=== PATIENT | female | born 1980 | race Caucasian/White ===

== ENCOUNTER → 2019-07-13 | Outpatient (CLI) | payer BC ==
--- NOTE | 2019-07-13 17:03 | Diagnostic Imaging Report ---
INDICATION: Right breast density. Patient presents for additional views. COMPARISON: Correlation is made with screening study from 06/22/2019. TECHNIQUE: Unilateral right 2-D and 3-D diagnostic mammography was performed. This included spot compression CC and ML views as well as conventional 90 degree lateral view. The current study was also evaluated with a Computer Aided Detection (CAD) system. 3-D tomosynthesis was also performed and reviewed. FINDINGS: Scattered fibroglandular densities in the right breast are noted. There are two nodular densities in the right breast. A nodule in the upper-outer aspect of the right breast, 9 cm from the nipple is noted. This is circumscribed. There is a nodule in the lower-outer aspect of the right breast, approximately 6 cm from the nipple. Both of these appear to be fairly benign. No spiculated mass or malignant-appearing microcalcifications are seen. The axillae are unremarkable. IMPRESSION: Right breast densities. Further evaluation with ultrasound is recommended and will be performed today. ACR BI-RADS Category 0: Incomplete. (Needs additional imaging evaluation). Result letter will be mailed to the patient. Note: At least 10% of breast cancer is not imaged by mammography. Dictated by: Dictated on workstation # [id number]
--- NOTE | 2019-07-13 17:17 | Diagnostic Imaging Report ---
INDICATION: Right breast densities. COMPARISON: Correlation is made with diagnostic mammogram earlier the same day and screening mammogram from 06/22/2019. FINDINGS: Sonographic interrogation of the upper-outer and upper-lower right breast was performed. At the 9:30 location of the right breast, there is a circumscribed hypoechoic nodule measuring 6 mm x 4 mm x 5 mm, likely accounting for the mammographic density. This has benign features and most likely represents a small cyst. Tiny cyst at the 10 o'clock location is seen as well near this area measuring approximately 4 mm x 2 mm. At the 8 o'clock location of the right breast, 6 cm from the nipple, there is a 7 mm x 3 mm x 3 mm cyst, correlating in size and location to the mammographic density. No solid or concerning masses are seen. IMPRESSION: Right breast cysts, accounting for the mammographic densities. Patient may return to routine annual screening mammography. ACR BI-RADS Category 2: Benign findings. Dictated by: Dictated on workstation # [id number]
== END ==
LOC: RAD 14:00
PROVIDERS: ATTEND Nurse Practitioner Family
DX: N60.01 Solitary cyst of right breast (principal)

== ENCOUNTER 2023-07-15 01:45 | Inpatient (IN) | payer BC ==
[~2023-07-15] VITALS: Ht 175.3 cm; Wt 127.6 kg
[2023-07-15] MEDS ORDERED: fentaNYL INJECTION 100 MCG/2 ML VIAL IVP STA (02:34)
--- NOTE | 2023-07-15 02:42 | ED Abdominal Pain ---
General Stated Complaint: ABD PAIN Source of Information: Patient, Spouse History of Present Illness Date Seen by Provider: Jul 15, 2023 Time Seen by Provider: 02:29 Initial Comments PT ARRIVES VIA POV IN TRANSFER FROM [facility] IN [place], [place] DR. CID HAD BEEN CONTACTED EARLIER BY ER PHYSICIAN AT [place], AND HE HAD ADVISED TO SEND PT HERE TO ER. THERE WAS NO GROUND EMS AVAILABLE, SO PT WAS SENT HERE BY POV PT HAS BEEN HAVING ABDOMINAL PAIN FOR THE LAST 2 DAYS NO NAUSEA/VOMITING. HAD BM AT 1400 ON 07/14/23 NO FEVER NO URINARY SYMPTOMS SHE WAS DX WITH DIVERTICULITIS WITH PERFORATION AND 4+ CM OF FREE AIR SHE RECEIVED ROCEPHIN AND TORADOL AT [facility] IV WAS DC'D PRIOR TO TRANSFER, PT WAS ARRIVING BY POV. LAST FOOD INTAKE WAS 1100 AM ON 07/14/23 LAST LIQUID INTAKE WAS 1900 ON 07/14/23 NO HISTORY OF SIMILAR NO PRIOR ABDOMINAL SURGERIES NO CHRONIC MEDICAL PROBLEMS, BUT NEVER GOES TO AND DOES NOT HAVE A PRIMARY CARE ANYWHERE. PT LIVES IN [place], [place] LMP--UNKNOWN, PT IS ON DEPO-PROVERA, LAST SHOT WAS 2 WEEKS AGO Allergies and Home Medications Allergies Coded Allergies: No Known Drug Allergies (Unverified , 07/15/23) Review of Systems Review of Systems Constitutional: no symptoms reported Respiratory: No Symptoms Reported Cardiovascular: No Symptoms Reported Gastrointestinal: Abdominal Pain; Denies Constipated, Denies Diarrhea, Denies Nausea, Denies Vomiting Genitourinary: No Symptoms Reported Musculoskeletal: no symptoms reported Skin: no symptoms reported Psychiatric/Neurological: No Symptoms Reported Endocrine: No Symptoms Reported Hematologic/Lymphatic: No Symptoms Reported Past Ixwcakz-Yknniq-Nqsupz Hx Patient Social History Tobacco Use?: Yes Tobacco type used: Cigarettes Smoking Status: Current Everyday Smoker Substance use?: No Alcohol Use?: Yes Alcohol Frequency: Once in a while Physical Exam Vital Signs Vital Signs - First Documented 07/15/23 02:25 Temp 39.0 Pulse 102 Resp 20 B/P (MAP) 144/92 (109) Pulse Ox 96 O2 Delivery Room Air Capillary Refill : Height/Weight/BMI Height: '" Weight: lbs. oz. kg; BMI Method: General Appearance: WD/WN, other (PT MOVES VERY SLOWLY, AND APPEARS TO BE IN PAIN) Neck: normal inspection Respiratory: normal breath sounds, no respiratory distress, no accessory muscle use Cardiovascular: regular rate, rhythm, no murmur Gastrointestinal: abnormal bowel sounds (DECREASED), guarding, rebound, tenderness (DIFFUSE MID AND LOWER ABDOMINAL TENDERNESS), other (FIRM) Extremities: normal inspection, normal capillary refill Back: no CVA tenderness Neurologic/Psychiatric: no motor/sensory deficits, alert, oriented x 3 Skin: normal color, warm/dry Focused Exam Sepsis Stage: Sepsis Possible Source: GI Tract/Intra-Abdominal Lactate Level 07/15/23 02:38: Lactic Acid Level 0.79 Time of Focused Exam: 04:30 Respiratory: Normal Breath Sounds, No Accessory Muscle Use, No Respiratory Distress Cardiovascular: Regular Rate, Rhythm, No Murmur Capillary Refill: Less Than 3 Seconds Skin: normal color, warm/dry Lactic Acid Level Laboratory Tests Test 07/15/23 02:38 Lactic Acid Level 0.79 MMOL/L (0.50-2.00) Within 3hrs of presentation: Admin fluids, Admin ABX, Blood cultures prior to ABX's, Focus exam, Lactate level Progress/Results/Core Measures Results/Orders Lab Results Laboratory Tests Test 07/15/23 02:38 Range/Units White Blood Count 9.6 4.3-11.0 10^3/uL Red Blood Count 4.32 3.80-5.11 10^6/uL Hemoglobin 15.0 11.5-16.0 g/dL Hematocrit 44 35-52 % Mean Corpuscular Volume 101 H 80-99 fL Mean Corpuscular Hemoglobin 35 H 25-34 pg Mean Corpuscular Hemoglobin Concent 34 32-36 g/dL Red Cell Distribution Width 12.2 10.0-14.5 % Platelet Count 116 L 130-400 10^3/uL Mean Platelet Volume 11.2 9.0-12.2 fL Immature Granulocyte % (Auto) 1 % Neutrophils (%) (Auto) 87 H 42-75 % Lymphocytes (%) (Auto) 6 L 12-44 % Monocytes (%) (Auto) 6 0-12 % Eosinophils (%) (Auto) 0 0-10 % Basophils (%) (Auto) 0 0-10 % Neutrophils # (Auto) 8.3 H 1.8-7.8 10^3/uL Lymphocytes # (Auto) 0.6 L 1.0-4.0 10^3/uL Monocytes # (Auto) 0.6 0.0-1.0 10^3/uL Eosinophils # (Auto) 0.0 0.0-0.3 10^3/uL Basophils # (Auto) 0.0 0.0-0.1 10^3/uL Immature Granulocyte # (Auto) 0.1 0.0-0.1 10^3/uL Neutrophils % (Manual) 89 % Lymphocytes % (Manual) 6 % Monocytes % (Manual) 5 % Clumped Platelets NONE OBSERVED Percent Immature Platelet Fraction 7.5 0.0-7.6 % Blood Morphology Comment NORMAL Prothrombin Time 13.2 12.2-14.7 SEC INR Comment 1.0 0.8-1.4 Activated Partial Thromboplast Time 28 24-35 SEC Sodium Level 137 135-145 MMOL/L Potassium Level 3.9 3.6-5.0 MMOL/L Chloride Level 107 98-107 MMOL/L Carbon Dioxide Level 17 L 21-32 MMOL/L Anion Gap 13 5-14 MMOL/L Blood Urea Nitrogen 8 7-18 MG/DL Creatinine 0.84 0.60-1.30 MG/DL Estimat Glomerular Filtration Rate 88 BUN/Creatinine Ratio 10 Glucose Level 118 H 70-105 MG/DL Lactic Acid Level 0.79 0.50-2.00 MMOL/L Calcium Level 9.6 8.5-10.1 MG/DL Corrected Calcium 9.4 8.5-10.1 MG/DL Total Bilirubin 1.0 0.1-1.0 MG/DL Aspartate Amino Transf (AST/SGOT) 20 5-34 U/L Alanine Aminotransferase (ALT/SGPT) 20 0-55 U/L Alkaline Phosphatase 96 40-136 U/L Total Protein 7.9 6.4-8.2 GM/DL Albumin 4.2 3.2-4.5 GM/DL Smear Scan YES My Orders Orders - FRANCHESCA HURTADO DO Ed Iv/Invasive Line Start (07/15/23 02:34) Monitor-Rhythm Ecg Trace Only (07/15/23 02:34) Cbc With Automated Diff (07/15/23 02:34) Comprehensive Metabolic Panel (07/15/23 02:34) Blood Culture (07/15/23 02:34) Urinalysis (07/15/23 02:34) Urine Culture (07/15/23 02:34) Protime With Inr (07/15/23 02:34) Partial Thromboplastin Time (07/15/23 02:34) Ed Iv/Invasive Line Start (07/15/23 02:34) Ed Iv/Invasive Line Start (07/15/23 02:34) Vital Signs Adult Sepsis Patie Q15M (07/15/23 02:34) O2 (07/15/23 02:34) Remove Rings In Anticipation O (07/15/23 02:34) Lactic Acid Analyzer (07/15/23 02:34) Piperacillin/Tazobactam (Piperacillin/Ta (07/15/23 02:45) Ed Iv/Invasive Line Start (07/15/23 02:34) Lactated Ringers 1,000 Ml (Lactated Ring (07/15/23 02:45) Fentanyl Injection (Fentanyl Injection (07/15/23 02:34) Ed Iv/Invasive Line Start (07/15/23 02:52) Ns Iv 1000 Ml (Ns Iv 1000 Ml) (07/15/23 03:00) Acetaminophen Tablet (Acetaminophen Ta (07/15/23 03:00) Ibuprofen Tablet (Ibuprofen Tablet) (07/15/23 03:00) Manual Differential (07/15/23 02:38) Ed Iv/Invasive Line Start (07/15/23 05:00) Ns Iv 1000 Ml (Ns Iv 1000 Ml) (07/15/23 05:00) Medications Given in ED Current Medications Medications Dose Ordered Sig/Rosa Route Start Time Stop Time Status Last Admin Dose Admin Acetaminophen 1,000 mg ONCE ONCE PO 07/15/23 03:00 07/15/23 03:01 DC 07/15/23 03:14 1,000 MG Ibuprofen 800 mg ONCE ONCE PO 07/15/23 03:00 07/15/23 03:01 DC 07/15/23 03:15 800 MG Piperacillin Sod/ Tazobactam Sod 4.5 gm/Sodium Chloride 100 ml @ 200 mls/hr ONCE ONCE IV 07/15/23 02:45 07/15/23 03:14 DC 07/15/23 03:16 200 MLS/HR Vital Signs/I&O 07/15/23 07/15/23 07/15/23 07/15/23 02:25 03:14 03:15 04:36 Temp 39.0 39.0 39.0 38.4 Pulse 102 Resp 20 B/P (MAP) 144/92 (109) Pulse Ox 96 O2 Delivery Room Air Progress Progress Note : Progress Note VITALS ON ARRIVAL: TEMP 39.0=102.2, HR 102, RR 20, BP 144/92, O2 SAT 96% ON ROOM AIR GIVEN: -IV FLUIDS -ZOSYN -FENTANYL -TYLENOL AND MOTRIN FOR FEVER LABS: -CBC WITH WBC Departure Impression Primary Impression: Sepsis Additional Impressions: Perforated sigmoid colon Diverticulitis of colon with perforation Disposition: ADMITTED INPATIENT Condition: Stable Admissions Decision to Admit Reason: Admit from ER (General) Decision to Admit/Date: Jul 15, 2023 Time/Decision to Admit Time: 02:45 Departure-Patient Inst. Referrals: NO,LOCAL PHYSICIAN (PCP/Family) Primary Care Physician FRANCHESCA HURTADO DO Jul 15, 2023 02:42
[2023-07-15] MEDS ORDERED: PIPERACILLIN/Tazobactam 4.5 GM in NS (IVPB) 100 ML 100 ML IV ONE (02:45)
[2023-07-15] MEDS ORDERED: LACTATED RINGERS 1,000 ML 1,000 ML IV ONE (02:45)
[2023-07-15 02:47] LABS: BASOPHILS % (AUTO) 0 % (0-10); EOSINOPHILS % (AUTO) 0 % (0-10); MONOCYTES % (AUTO) 6 % (0-12); PLATELET COUNT 116 10^3/uL (130-400)
[2023-07-15 02:49] LABS: HEMATOCRIT 44 % (35-52); LYMPHOCYTES # (AUTO) 0.6 10^3/uL (1.0-4.0); LYMPHOCYTES % (AUTO) 6 % (12-44); MEAN CORPUSCULAR HEMOGLOBIN 35 pg (25-34); MEAN CORPUSCULAR HGB CONC 34 g/dL (32-36); MEAN CORPUSCULAR VOLUME 101 fL (80-99); MEAN PLATELET VOLUME 11.2 fL (9.0-12.2); MONOCYTES # (AUTO) 0.6 10^3/uL (0.0-1.0); NEUTROPHILS # (AUTO) 8.3 10^3/uL (1.8-7.8); NEUTROPHILS % (AUTO) 87 % (42-75); WHITE BLOOD COUNT 9.6 10^3/uL (4.3-11.0)
[2023-07-15] MEDS ORDERED: ACETAMINOPHEN 500 MG TABLET PO ONE (03:00)
[2023-07-15] MEDS ORDERED: IBUPROFEN 800 MG TABLET PO ONE (03:00)
[2023-07-15] MEDS ORDERED: NS IV 1000 ML 1,000 ML IV SCH ×2 (03:00→05:00)
[2023-07-15 03:03] LABS: PROTHROMBIN TIME PATIENT 13.2 SEC (12.2-14.7)
[2023-07-15 03:05] LABS: ALBUMIN 4.2 GM/DL (3.2-4.5); POTASSIUM 3.9 MMOL/L (3.6-5.0)
[2023-07-15 03:06] LABS: CALCIUM 9.6 MG/DL (8.5-10.1)
[2023-07-15 03:07] LABS: TOTAL PROTEIN 7.9 GM/DL (6.4-8.2)
[2023-07-15 03:11] LABS: CREATININE SERUM 0.84 MG/DL (0.60-1.30)
[2023-07-15 03:17] LABS: SMEAR SCAN COMMENT YES
[2023-07-15 03:18] LABS: LYMPHOCYTES % (MANUAL) 6 %; MONOCYTES % (MANUAL) 5 %; NEUTROPHILS % (MANUAL) 89 %; RBC MORPH NORMAL
[2023-07-15 03:19] LABS: PLATELET CLUMPS NONE OBSERVED
[2023-07-15] MEDS ORDERED: NS IV 500 ML 500 ML IV PRN ×2 (06:45→07:30)
[2023-07-15] MEDS ORDERED: EPINEPHrine 1 MG INJECTION 4 MG in NS (IVPB) 250 ML 248 ML IV SCH (06:45)
--- NOTE | 2023-07-15 06:54 | Tele-ICU Progress Note ---
Subjective Subjective/Events-last exam TeleICU Brief Consult Note 43 year old female without any prior medical history sent from OSH ED ([facility]) by POV for surgical evaluation of perforated diverticulus. Apparently, patiet presented with abdominal pain, with abdominal finding concerning for abdominal free air and perforated diverticulus. Patient was given IV abx in OSH ED and IV toradol. Surgeon to evaluate later today. History taken from endorsement and labs that were done at present facility. She is awake, alert. She has some abdominal pain. Vitals - reviewed - has a temp of 39 max. BP 140s/90s. HR 100s, on room air. Exam - comfortable, no distress. some tenderness with palpatian as aseen on camera of staff doing exam. Labs reviewed - lactic acid normal. normal wbc count. Imaging - no imaging available from OSH remotely Diagnosis: Perforated diverticulus - as seen on CT Imaging at OSH - Transferred to [facility] for surgical evaluation. appears stable at this time. Continue abx, toradol prn. Gen surg to evaluate today A total of _ 31 _ minutes of critical care time was devoted to this patient, including reviewing this patient's available data, including medical history, events of note and test results. This was required to treat and/or prevent further deterioration of critical care conditions ( as above ). Service provided to a patient admitted to ICU bed via interactive E-CARE system with real-time audio and video telecommunications from [facility]- ICU hub located in [place], [place] Sepsis Event Evaluation Height, Weight, BMI Height: '" Weight: lbs. oz. kg; 39.44 BMI Method: Focused Exam Lactate Level 07/15/23 02:38: Lactic Acid Level 0.79 Time of Focused Exam: 0430 Exam Exam Patient acknowledged, consented, and participated in this virtual visit which was conducted using real time audio/video Vital Signs Date Time Temp Pulse Resp B/P (MAP) Pulse Ox O2 Delivery O2 Flow Rate FiO2 07/15/23 06:41 35.9 Room Air 07/15/23 06:30 87 07/15/23 06:08 79 18 124/76 98 Room Air 07/15/23 04:36 38.4 07/15/23 03:15 39.0 07/15/23 03:14 39.0 07/15/23 02:25 39.0 102 20 144/92 (193) 96 Room Air I & O 07/15/23 07:00 Intake Total 1100 ml Balance 1100 ml Height & Weight Height: '" Weight: lbs. oz. kg; 39.44 BMI Method: General Appearance: No Apparent Distress Respiratory: Normal Breath Sounds, No Accessory Muscle Use, No Respiratory Distress Cardiovascular: Regular Rate, Rhythm, No Murmur Capillary Refill: Less Than 3 Seconds Gastrointestinal: abnormal bowel sounds, guarding, rebound, tenderness, other Results Lab Laboratory Tests 07/15/23 02:38 Assessment/Plan Assessment/Plan See subjective HEATHER CABRAL MD Jul 15, 2023 06:54
[2023-07-15] MEDS: NOREPINEPHRINE 8 MG/250 ML 250 ML IV SCH ×2 (07:00→18:16)
[2023-07-15] MEDS: LACTATED RINGERS 1,000 ML 1,000 ML IV SCH ×3 (07:00→21:19)
--- NOTE | 2023-07-15 07:00 | Consultation - Surgery ---
JENNA GARRETT 07/15/23 0700: History of Present Illness History of Present Illness Patient Consulted On(mac/time) 07/15/23 06:47 Date Seen by Provider: Jul 15, 2023 Time Seen by Provider: 06:47 Reason for Visit: Admit from ER for abd pain, diverticulitis History of Present Illness 43 yo female transferred from ER to ICU. Was seen in [facility] prior to coming to [facility]. Pain started 3 days ago and is diffuse across abd. pt states no pain at rest but can get up to 8-9/10 with movement. Pt has be constipated but had BM yesterday. Describes the pain sharp/pinching/cramping in the abd. Pt denies any past medical history, no other hospitalizations. Finger surgery for bone spurs. Pt denies any allergies. No medications. Smokes 1/2 ppd for 20yrs. EtOH about 2 beers per day. Denies rec drug use. Pt had fever in ER and is still feverish as of 0430. Abd is slightly distended and tender to palpation diffusely. CT was ordered in [place]. Pt and family says they were given a disk with the CT results and that was given to the nurses. Allergies and Home Medications Allergies Coded Allergies: No Known Drug Allergies (Unverified , 07/15/23) Patient Home Medication List Home Medication List Reviewed: Yes Unable to Obtain Active Prescriptions or Reported Meds Past Pschslf-Wfaumd-Ckinvd Hx Patient Social History Smoking Status: Current Everyday Smoker (1/2 ppd 20yrs) Recent Hopitalizations: No Alcohol Use?: Yes Seasonal Allergies Seasonal Allergies: No Surgeries History of Surgeries: Yes (bone spurs in finger) Respiratory History of Respiratory Disorde: No Cardiovascular History of Cardiac Disorders: No Neurological History of Neurological Disord: No Reproductive System : No Genitourinary History of Genitourinary Disor: No Gastrointestinal History of Gastrointestinal Di: No Musculoskeletal History of Musculoskeletal Dis: No Endocrine History of Endocrine Disorders: No HEENT History of HEENT Disorders: No Cancer History of Cancer: No Psychosocial History of Psychiatric Problem: No Integumentary History of Skin or Integumenta: No Blood Transfusions History of Blood Disorders: No Family Medical History Significant Family History: No Pertinent Family Hx Review of Systems-General Constitutional: No diaphoresis; fever; No weight gain, No weight loss EENTM: No hearing loss, No ear pain Respiratory: No cough, No dyspnea on exertion Gastrointestinal: abdominal pain (diffuse abd pain), constipation; No jaundice Genitourinary: No decreased output, No discharge : No Musculoskeletal: No gout, No joint swelling Skin: No change in color, No change in hair/nails Psychiatric/Neurological: Denies Anxiety, Denies Depressed All Other Systems Reviewed Negative Unless Noted: Yes Physical Exam-General Problems Physical Exam Vital Signs Vital Signs - First Documented 07/15/23 02:25 Temp 39.0 Pulse 102 Resp 20 B/P (MAP) 144/92 (109) Pulse Ox 96 O2 Delivery Room Air Capillary Refill : Less Than 3 Seconds General Appearance: mild distress, obese HEENT: normal ENT inspection, pharynx normal Neck: non-tender, supple Respiratory: chest non-tender, no accessory muscle use Cardiovascular: no JVD, tachycardia Gastrointestinal: distended, tenderness (diffuse abd) Rectal: deferred Back: no CVA tenderness, no vertebral tenderness Extremities: normal range of motion, non-tender Neurologic/Psychiatric: alert, oriented x 3 Skin: normal color, warm/dry Lymphatic: no adenopathy Data Review Labs Laboratory Tests 07/15/23 02:38: White Blood Count 9.6, Red Blood Count 4.32, Hemoglobin 15.0, Hematocrit 44, Mean Corpuscular Volume 101H, Mean Corpuscular Hemoglobin 35H, Mean Corpuscular Hemoglobin Concent 34, Red Cell Distribution Width 12.2, Platelet Count 116L, Mean Platelet Volume 11.2, Immature Granulocyte % (Auto) 1, Neutrophils (%) (Auto) 87H, Lymphocytes (%) (Auto) 6L, Monocytes (%) (Auto) 6, Eosinophils (%) (Auto) 0, Basophils (%) (Auto) 0, Neutrophils # (Auto) 8.3H, Lymphocytes # (Auto) 0.6L, Monocytes # (Auto) 0.6, Eosinophils # (Auto) 0.0, Basophils # (Auto) 0.0, Immature Granulocyte # (Auto) 0.1, Neutrophils % (Manual) 89, Lymphocytes % (Manual) 6, Monocytes % (Manual) 5, Clumped Platelets NONE OBSERVED, Percent Immature Platelet Fraction 7.5, Blood Morphology Comment NORMAL, Prothrombin Time 13.2, INR Comment 1.0, Activated Partial Thromboplast Time 28, Sodium Level 137, Potassium Level 3.9, Chloride Level 107, Carbon Dioxide Level 17L, Anion Gap 13, Blood Urea Nitrogen 8, Creatinine 0.84, Estimat Glomerular Filtration Rate 88, BUN/Creatinine Ratio 10, Glucose Level 118H, Lactic Acid Level 0.79, Calcium Level 9.6, Corrected Calcium 9.4, Total Bilirubin 1.0, Aspartate Amino Transf (AST/SGOT) 20, Alanine Aminotransferase (ALT/SGPT) 20, Alkaline Phosphatase 96, Total Protein 7.9, Albumin 4.2, Smear Scan YES Assessment/Plan Assessment/Plan Assessment/Plan Perforated diverticulitis Thrombocytopenia Substance abuse: Tobacco Acidosis Fever NPO for possible surgery Zosyn IV fluids CT abd/pelvis, unless can obtain previous imaging from [place] Monitor for bowel movements Consult hospitalist NORMA BURNHAM DO 07/15/232027: History of Present Illness History of Present Illness History of Present Illness CC: Perforated sigmoid contained. Patient is a 43 year old female with abdominal pain across lower abdomne that started about Tuesday. Worsened when she was moving. Laying still would make better. Went to [facility] for further evaluation yesterday. She was found to have some air around the sigmoid colon with inflammation consistent with perforation. Has had fever. NPO. Allergies and Home Medications Allergies Coded Allergies: No Known Drug Allergies (Unverified , 07/15/23) Patient Home Medication List Home Medication List Reviewed: Yes Unable to Obtain Active Prescriptions or Reported Meds Past Xtdwlus-Gtzkus-Rqkfro Hx Patient Social History Smoking Status: Current Everyday Smoker (1/2 ppd 20yrs) Surgeries History of Surgeries: Yes (bone spurs in finger) Reviewed Nursing Assessment Reviewed/Agree w Nursing PMH: Yes Family Medical History Significant Family History: No Pertinent Family Hx Review of Systems-General Constitutional: No diaphoresis; fever; No weight gain, No weight loss EENTM: No hearing loss, No ear pain Respiratory: No cough, No dyspnea on exertion Gastrointestinal: abdominal pain (lower abdomen), constipation Genitourinary: No decreased output, No discharge Musculoskeletal: No gout, No joint swelling Skin: No change in color, No change in hair/nails Psychiatric/Neurological: Denies Anxiety, Denies Depressed All Other Systems Reviewed Negative Unless Noted: Yes (Negative excepted noted.) Physical Exam-General Problems Physical Exam General Appearance: mild distress, obese HEENT: PERRL/EOMI, normal ENT inspection Neck: non-tender, supple Respiratory: chest non-tender, no respiratory distress, no accessory muscle use Cardiovascular: regular rate, rhythm, no JVD Gastrointestinal: tenderness (lower abdomen, not peritoneal at this time), other (obese) Rectal: deferred Back: no CVA tenderness, no vertebral tenderness Extremities: normal range of motion, non-tender Neurologic/Psychiatric: alert, normal mood/affect, oriented x 3 Skin: normal color, warm/dry Lymphatic: no adenopathy Assessment/Plan Assessment/Plan Assessment/Plan Perforated diverticulitis Thrombocytopenia Substance abuse: Tobacco Fever NPO for possible surgery and bowel rest for perforation Zosyn IV fluids Reviewed ct scan localized perforation will try conservative measures, but if exam changes may need surgical intervention. Consult hospitalist Repeat labs in am Supervisory-Addendum Brief Verification & Attestation Participated in pt care: history, MDM, physical Personally performed: exam, history, MDM, supervision of care Care discussed with: Medical Student Procedures: n/a Results interpretation: Verified all documentation Verification and Attestation of Medical Student E/M Service A medical student performed and documented this service in my presence. I reviewed and verified all information documented by the medical student and made modifications to such information, when appropriate. I personally performed the physical exam and medical decision making. Norma Burnham, Jul 15, 2023,20:38 JENNA GARRETT Jul 15, 2023 07:00 NORMA BURNHAM DO Jul 15, 2023 20:28
[2023-07-15] MEDS: VASOPRESSIN INJECTION 20 UNIT in NS (IVPB) 100 ML 100 ML IV SCH ×2 (07:01→18:16)
[2023-07-15] MEDS: PIPERACILLIN/Tazobactam 4.5 GM in NS (IVPB) 100 ML 100 ML IV SCH ×2 (08:52→17:36)
[2023-07-15] MEDS: fentaNYL INJECTION 100 MCG/2 ML VIAL IV PRN ×4 (09:25→21:22)
--- NOTE | 2023-07-15 11:43 | Consultation - Hospitalist ---
DI MUNOZ 07/15/23 1143: HPI History of Present Illness: HPI/Chief Complaint Patient is 43yo F with no PMH that presented to the [facility] yesterday for abdominal pain. The pain started when she was at work two days ago and was a crampy pain she thought might just be due to constipation but has had BM since. Yesterday, the pain worsened and became sharp and stabbing in her lower abdomen that was a 8-9/10 at its worst. The pain is worse to deep palpation and when she is moving between lying and sitting down. Today while lying she says she isn't in any pain. She states she has never experienced any abdominal pain like this before and denies any previous abdominal surgery. Her only surgery was in her hand for bone spurs. She takes no medications daily and smokes 1/2 ppd. She denies nausea, vomiting, or chills. She denies dysuria or blood in stool or urine. She denies chest pain or shortness of breath. At the [facility] they did a CT that showed perforated diverticulitis. Source: patient Date Seen 07/15/23 Attending Physician No,Local Physician PCP Admitting Physician: Janes Burnham DO Attending Physician: Janes Burnham DO Referring Physician Date of Admission Jul 15, 2023 at 06:07 Home Medications & Allergies Home Medications Reviewed patient Home Medication Reconciliation performed by pharmacy medication reconciliations dairy lab technician and/or nursing. Patients Allergies have been reviewed. Allergies Allergies Coded Allergies No Known Drug Allergies (Unverified07/15/23) Past Tvmokwq-Ghwxfu-Jxrmak Hx Patient Social History Tobacco Use?: Yes Tobacco type used: Cigarettes Smoking Status: Current Everyday Smoker (1/2 ppd 20yrs) Smokeless Tobacco Frequency: Never a User Use of E-Cig and/or Vaping dev: No Substance use?: No Alcohol Use?: Yes Alcohol Frequency: Once in a while Pt feels they are or have been: No Immunizations Up To Date Tetanus Booster (TDap): Unknown Seasonal Allergies Seasonal Allergies: No Current Status status: No status: No Advance Directives: No Communicates: Verbally Primary Language: Montserratian Preferred Spoken Language: Montserratian Is interpretation needed?: No Implanted or Applied Medical D: Contraceptive device Past Medical History Blood Disorders: No Family Medical History No Pertinent Family Hx Review of Systems Constitutional: No chills; fever Respiratory: No short of breath Cardiovascular: No chest pain Gastrointestinal: abdominal pain (diffuse, crampy); No diarrhea, No melena, No nausea, No vomiting Genitourinary: No dysuria, No hematuria, No incontinence, No pain Physical Exam Physical Exam Vital Signs Vital Signs - First Documented 07/15/23 02:25 Temp 39.0 Pulse 102 Resp 20 B/P (MAP) 144/92 (109) Pulse Ox 96 O2 Delivery Room Air Capillary Refill : Less Than 3 Seconds Height, Weight, BMI Height: '" Weight: lbs. oz. kg; 39.44 BMI Method: General Appearance: No Apparent Distress, WD/WN Respiratory: Chest Non Tender, Normal Breath Sounds, No Accessory Muscle Use, No Respiratory Distress Cardiovascular: Regular Rate, Rhythm, No Edema, No Murmur Gastrointestinal: Soft, Tenderness (diffuse) Extremity: No Pedal Edema Neurologic/Psychiatric: Alert, Oriented x3 Skin: Normal Color, Warm/Dry Results Results/Procedures Labs Laboratory Tests 07/15/23 02:38 Patient resulted labs reviewed. Assessment/Plan Assessment and Plan Assess & Plan/Chief Complaint Perforated diverticulitis Fever Surgery following NPO IV fluids Zosyn tylenol for fever Fentanyl for pain CHARLOTTE BELTRAN MD 07/15/23 1803: HPI History of Present Illness: Source: patient Exam Limitations: no limitations Referring Physician Chacha Past Gzmycxv-Olnpeq-Bqndrh Hx Patient Social History Tobacco Use?: Yes Tobacco type used: Cigarettes Smoking Status: Current Everyday Smoker Approx how many per day: 10 Substance use?: No Alcohol Use?: Yes Results Results/Procedures Imaging: Reviewed Imaging Report Assessment/Plan Assessment and Plan Assess & Plan/Chief Complaint Admitted to surgery with diverticulitis with presumed contained perforation per CT report. Managing conservatively at this time, trying to avoid surgery. No chronic medical problems. Refused nicotine patch. We will follow as needed. Please contact the hospitalist loss control consultant with any questions or concerns. Diagnosis/Problems Diagnosis/Problems (1) Diverticulitis of colon with perforation Status: Acute (2) Perforated sigmoid colon Status: Acute (3) Tobacco abuse Status: Chronic (4) Obesity Status: Chronic Supervisory-Addendum Brief Verification & Attestation Participated in pt care: history, MDM, physical Personally performed: exam, history, MDM, supervision of care Care discussed with: Medical Student Procedures: n/a A medical student performed and documented this service in my presence. I revi ewed and verified all information documented by the medical student and made modifications to such information, when appropriate. I personally performed the physical exam and medical decision making. DI MUNOZ Jul 15, 2023 11:43 CHARLOTTE BELTRAN MD Jul 15, 2023 18:03
[2023-07-16] MEDS: PIPERACILLIN/Tazobactam 4.5 GM in NS (IVPB) 100 ML 100 ML IV SCH ×3 (00:25→17:54)
[2023-07-16] MEDS: fentaNYL INJECTION 100 MCG/2 ML VIAL IV PRN ×4 (02:56→23:23)
[2023-07-16] MEDS: LACTATED RINGERS 1,000 ML 1,000 ML IV SCH ×4 (03:03→17:54)
[2023-07-16] MEDS: VASOPRESSIN INJECTION 20 UNIT in NS (IVPB) 100 ML 100 ML IV SCH ×2 (05:02→16:23)
[2023-07-16] MEDS: NOREPINEPHRINE 8 MG/250 ML 250 ML IV SCH ×2 (05:03→16:25)
[2023-07-16 05:14] LABS: MEAN CORPUSCULAR VOLUME 103 fL (80-99); MEAN PLATELET VOLUME 11.5 fL (9.0-12.2)
[2023-07-16 05:16] LABS: BASOPHILS % (AUTO) 0 % (0-10); EOSINOPHILS % (AUTO) 0 % (0-10); HEMATOCRIT 37 % (35-52); HEMOGLOBIN 12.5 g/dL (11.5-16.0); LYMPHOCYTES # (AUTO) 0.8 10^3/uL (1.0-4.0); LYMPHOCYTES % (AUTO) 10 % (12-44); MEAN CORPUSCULAR HEMOGLOBIN 35 pg (25-34); MEAN CORPUSCULAR HGB CONC 34 g/dL (32-36); MONOCYTES # (AUTO) 0.6 10^3/uL (0.0-1.0); MONOCYTES % (AUTO) 7 % (0-12); NEUTROPHILS # (AUTO) 6.4 10^3/uL (1.8-7.8); NEUTROPHILS % (AUTO) 82 % (42-75); PLATELET COUNT 96 10^3/uL (130-400); WHITE BLOOD COUNT 7.8 10^3/uL (4.3-11.0)
[2023-07-16 05:33] LABS: ALBUMIN 3.4 GM/DL (3.2-4.5); BILIRUBIN,TOTAL 1.6 MG/DL (0.1-1.0); CALCIUM 8.7 MG/DL (8.5-10.1); CREATININE SERUM 0.77 MG/DL (0.60-1.30); POTASSIUM 3.6 MMOL/L (3.6-5.0); TOTAL PROTEIN 6.3 GM/DL (6.4-8.2)
[2023-07-16] MEDS: MAGNESIUM 1 GM/100 ML IVPB 100 ML IV SCH (05:59)
[2023-07-16] MEDS: POTASSIUM CHLORIDE 20 MEQ TABLET PO SCH (05:59)
[2023-07-16] MEDS: POTASSIUM CL 10MEQ/50ML IVPB 50 ML IV SCH ×5 (05:59→09:04)
[2023-07-16] MEDS ORDERED: MAGNESIUM 1 GM/100 ML IVPB 100 ML IV SCH (06:00)
[2023-07-16] MEDS ORDERED: POTASSIUM CL 10MEQ/50ML IVPB 50 ML IV SCH (06:00)
[2023-07-16] MEDS ORDERED: POTASSIUM CHLORIDE 20 MEQ TABLET PO SCH (06:00)
[2023-07-16] MEDS ORDERED: POTASSIUM CL 10MEQ/50ML IVPB 200 ML IV ONE (06:00)
--- NOTE | 2023-07-16 07:14 | Progress Note - Surgery ---
JENNA GARRETT 07/16/23 0714: Subjective Date Seen by a Provider: Jul 16, 2023 Time Seen by a Provider: 07:09 Subjective/Events-last exam pt with diffuse lower abd pain consistent with ct findings of free peritoneal air. Pain is well controlled with medication and does not hurt when not moving. Able to ambulate with pain. Platelets are 96k. Pt asking when surgery will be. Asking to drink water. NPO since arrival. total bilirubin high (1.6) Focused Exam Lactate Level 07/15/23 02:38: Lactic Acid Level 0.79 07/15/23 07:15: Lactic Acid Level 0.65 Time of Focused Exam: 0430 Objective Exam Vital Signs Date Time Temp Pulse Resp B/P (MAP) Pulse Ox O2 Delivery O2 Flow Rate FiO2 07/16/23 06:00 80 19 163/92 (115) 94 Room Air 07/16/23 05:00 87 19 138/76 (96) 95 Room Air 07/16/23 04:00 98 Room Air 07/16/23 04:00 96 31 148/106 (120) 92 Room Air 07/16/23 03:04 36.6 07/16/23 03:00 112 134/79 (97) 95 Room Air 07/16/23 02:00 83 19 155/100 (118) 94 Room Air 07/16/23 01:00 92 13 148/93 (111) 95 Room Air 07/16/23 01:00 85 07/16/23 00:00 84 19 153/102 (119) 94 Room Air 07/15/23 23:59 98 Room Air 07/15/23 23:00 82 31 144/89 (107) 95 Room Air 07/15/23 22:00 86 27 132/107 (115) 94 Room Air 07/15/23 21:00 101 20 146/89 (108) 95 Room Air 07/15/23 20:00 99 32 132/68 (89) 93 Room Air 07/15/23 20:00 98 Room Air 07/15/23 19:59 37.3 Room Air 07/15/23 19:00 102 07/15/23 18:00 103 18 91 Room Air 07/15/23 17:00 114 23 95 Room Air 07/15/23 16:07 37.1 Room Air 07/15/23 16:00 91 21 139/87 (125) 93 Room Air 07/15/23 16:00 98 Room Air 07/15/23 15:00 96 20 141/79 (113) 91 Room Air 07/15/23 14:00 87 22 153/78 (98) 93 Room Air 07/15/23 13:00 115 20 93 Room Air 07/15/23 13:00 92 07/15/23 12:17 98 Room Air 07/15/23 12:00 87 20 169/111 (130) 95 Room Air 07/15/23 11:00 69 17 103/75 (84) 95 Room Air 07/15/23 10:00 70 124/53 (76) 95 Room Air 07/15/23 09:00 93 14 117/65 (82) 95 Room Air 07/15/23 08:05 96 Room Air 07/15/23 08:00 36.5 07/15/23 08:00 80 10 112/59 (76) 96 Room Air I & O 07/16/23 07:00 Intake Total 100 ml Output Total 1825 ml Balance -1725 ml Capillary Refill : Less Than 3 Seconds General Appearance: No Apparent Distress, Obese HEENT: PERRL/EOMI, Pharynx Normal Neck: Full Range of Motion, Non Tender Respiratory: Chest Non Tender, Normal Breath Sounds, No Accessory Muscle Use, No Respiratory Distress Cardiovascular: Regular Rate, Rhythm, No Edema, No Murmur Gastrointestinal: soft; No distended, No guarding, No rebound; tenderness (lower abdomen) Extremity: Normal Capillary Refill, No Pedal Edema Neurologic/Psychiatric: Alert, Oriented x3, Normal Mood/Affect Skin: Normal Color, Warm/Dry Lymphatic: No Adenopathy Results Lab Laboratory Tests 07/15/23 07:15: Lactic Acid Level 0.65 07/16/23 05:00: White Blood Count 7.8, Red Blood Count 3.54L, Hemoglobin 12.5, Hematocrit 37, Mean Corpuscular Volume 103H, Mean Corpuscular Hemoglobin 35H, Mean Corpuscular Hemoglobin Concent 34, Red Cell Distribution Width 12.3, Platelet Count 96L, Mean Platelet Volume 11.5, Immature Granulocyte % (Auto) 1, Neutrophils (%) (Auto) 82H, Lymphocytes (%) (Auto) 10L, Monocytes (%) (Auto) 7, Eosinophils (%) (Auto) 0, Basophils (%) (Auto) 0, Neutrophils # (Auto) 6.4, Lymphocytes # (Auto) 0.8L, Monocytes # (Auto) 0.6, Eosinophils # (Auto) 0.0, Basophils # (Auto) 0.0, Immature Granulocyte # (Auto) 0.1, Percent Immature Platelet Fraction 6.3, Sodium Level 139, Potassium Level 3.6, Chloride Level 110H, Carbon Dioxide Level 18L, Anion Gap 11, Blood Urea Nitrogen 8, Creatinine 0.77, Estimat Glomerular Filtration Rate 97, BUN/Creatinine Ratio 10, Glucose Level 96, Calcium Level 8.7, Corrected Calcium 9.2, Total Bilirubin 1.6H, Aspartate Amino Transf (AST/SGOT) 11, Alanine Aminotransferase (ALT/SGPT) 14, Alkaline Phosphatase 68, Total Protein 6.3L, Albumin 3.4 Assessment/Plan Assessment/Plan Assessment/Plan Perforated diverticulitis Thrombocytopenia Substance abuse: Tobacco Fever NPO for possible surgery and bowel rest for perforation Zosyn IV fluids Reviewed ct scan localized perforation (07/15/23) continue conservative measures, but if exam changes may need surgical intervention. Consult hospitalist Repeat labs in am NORMA BURNHAM DO 07/16/23 0756: Subjective Subjective/Events-last exam Patient still with lower abdominal pain. Feeling a little bit better than yesterday. Exam not peritoneal. NPO. WBC 7.8. Denies n/v fever sweats chills shortness of breath or chest pain. On Zosyn. Objective Exam General Appearance: No Apparent Distress, Obese HEENT: PERRL/EOMI, Normal ENT Inspection Neck: Full Range of Motion, Non Tender Respiratory: Chest Non Tender, No Accessory Muscle Use, No Respiratory Distress Cardiovascular: Regular Rate, Rhythm, No JVD Gastrointestinal: soft, tenderness (lower abdomen) Extremity: Normal Capillary Refill, Non Tender Neurologic/Psychiatric: Alert, Oriented x3, Normal Mood/Affect Skin: Normal Color, Warm/Dry Lymphatic: No Adenopathy Assessment/Plan Assessment/Plan Assessment/Plan Perforated diverticulitis Thrombocytopenia Substance abuse: Tobacco Fever NPO for possible surgery and bowel rest for perforation Zosyn IV fluids Reviewed ct scan localized perforation (07/15/23) continue conservative measures, but if exam changes may need surgical intervention. Consult hospitalist Repeat labs in am Slightly better today, continue conservative measures Supervisory-Addendum Brief Verification & Attestation Participated in pt care: history, MDM, physical Personally performed: exam, history, MDM, supervision of care Care discussed with: Medical Student Procedures: n/a Results interpretation: Verified all documentation Verification and Attestation of Medical Student E/M Service A medical student performed and documented this service in my presence. I reviewed and verified all information documented by the medical student and made modifications to such information, when appropriate. I personally performed the physical exam and medical decision making. Norma Burnham, Jul 16, 2023,07:56 JENNA GARRETT Jul 16, 2023 07:14 NORMA BURNHAM DO Jul 16, 2023 07:56
[2023-07-17] MEDS: PIPERACILLIN/Tazobactam 4.5 GM in NS (IVPB) 100 ML 100 ML IV SCH ×3 (00:39→16:34)
[2023-07-17] MEDS: VASOPRESSIN INJECTION 20 UNIT in NS (IVPB) 100 ML 100 ML IV SCH ×2 (04:02→14:30)
[2023-07-17] MEDS: NOREPINEPHRINE 8 MG/250 ML 250 ML IV SCH ×2 (04:03→15:43)
[2023-07-17 04:45] LABS: BASOPHILS % (AUTO) 0 % (0-10); EOSINOPHILS # (AUTO) 0.1 10^3/uL (0.0-0.3); EOSINOPHILS % (AUTO) 2 % (0-10); HEMATOCRIT 35 % (35-52); HEMOGLOBIN 12.4 g/dL (11.5-16.0); LYMPHOCYTES # (AUTO) 0.7 10^3/uL (1.0-4.0); LYMPHOCYTES % (AUTO) 10 % (12-44); MEAN CORPUSCULAR HEMOGLOBIN 35 pg (25-34); MEAN CORPUSCULAR HGB CONC 35 g/dL (32-36); MEAN CORPUSCULAR VOLUME 101 fL (80-99); MEAN PLATELET VOLUME 11.4 fL (9.0-12.2); MONOCYTES # (AUTO) 0.5 10^3/uL (0.0-1.0); MONOCYTES % (AUTO) 8 % (0-12); NEUTROPHILS # (AUTO) 5.4 10^3/uL (1.8-7.8); NEUTROPHILS % (AUTO) 80 % (42-75); PLATELET COUNT 92 10^3/uL (130-400); WHITE BLOOD COUNT 6.8 10^3/uL (4.3-11.0)
[2023-07-17 05:11] LABS: ALBUMIN 3.3 GM/DL (3.2-4.5); BILIRUBIN,TOTAL 1.4 MG/DL (0.1-1.0); CALCIUM 8.8 MG/DL (8.5-10.1); CREATININE SERUM 0.77 MG/DL (0.60-1.30); POTASSIUM 3.7 MMOL/L (3.6-5.0); TOTAL PROTEIN 6.3 GM/DL (6.4-8.2)
[2023-07-17] MEDS: POTASSIUM CL 10MEQ/50ML IVPB 50 ML IV SCH ×3 (05:18→06:27)
[2023-07-17] MEDS: POTASSIUM CHLORIDE 20 MEQ TABLET PO SCH (05:36)
[2023-07-17] MEDS: MAGNESIUM 1 GM/100 ML IVPB 100 ML IV SCH (05:37)
[2023-07-17] MEDS: LACTATED RINGERS 1,000 ML 1,000 ML IV SCH ×3 (05:48→16:35)
--- NOTE | 2023-07-17 09:48 | Progress Note - Surgery ---
TERRY LONGORIA 07/17/23 0948: Subjective Date Seen by a Provider: Jul 17, 2023 Time Seen by a Provider: 09:42 Subjective/Events-last exam Pt states she has not been having any pain other than some discomfort from gas, but she has been passing gas since last night and it provides relief. Pt states she has not had a BM in the last 24 hours. Pt denies having any N/V. Pt has not been administered a pain medication since yesterday. Pt remains NPO. Pt says she is hungry and thirsty but would rather have a glass of water than eat. Review of Systems General: No Chills, No Night Sweats HEENT: No Head Aches, No Visual Changes Pulmonary: No Dyspnea, No Cough Cardiovascular: No: Chest Pain, Palpitations Gastrointestinal: Abdominal Pain (other than occassional cramps in lower abdomen when she moves); No: Nausea, Vomiting Genitourinary: No Dysuria, No Hematuria Neurological: No: Weakness, Numbness Focused Exam Lactate Level 07/15/23 02:38: Lactic Acid Level 0.79 07/15/23 07:15: Lactic Acid Level 0.65 Time of Focused Exam: 0430 Objective Exam Vital Signs Date Time Temp Pulse Resp B/P (MAP) Pulse Ox O2 Delivery O2 Flow Rate FiO2 07/17/23 09:00 85 10 150/86 (104) 95 Room Air 07/17/23 08:11 36.0 07/17/23 08:00 75 175/117 (149) 94 Room Air 07/17/23 08:00 97 Room Air 07/17/23 07:00 80 131/90 (103) 96 Room Air 07/17/23 07:00 82 07/17/23 06:00 77 125/72 (89) 94 Room Air 07/17/23 05:00 98 17 153/98 (116) 95 Room Air 07/17/23 04:00 82 12 129/77 (94) 95 Room Air 07/17/23 04:00 96 Room Air 07/17/23 04:00 37.0 07/17/23 03:00 92 36 143/79 (100) 93 Room Air 07/17/23 02:00 84 10 129/77 (94) 94 Room Air 07/17/23 01:00 83 17 143/82 (102) 95 Room Air 07/17/23 00:41 87 07/17/23 00:00 82 18 121/80 (94) 95 Room Air 07/16/23 23:59 96 Room Air 07/16/23 23:50 36.9 07/16/23 23:00 89 20 127/79 (95) 95 Room Air 07/16/23 22:00 88 20 145/88 (107) 95 Room Air 07/16/23 21:00 91 26 150/91 (110) 94 Room Air 07/16/23 20:00 86 20 133/90 (104) 95 Room Air 07/16/23 20:00 96 Room Air 07/16/23 19:54 37.7 07/16/23 19:00 111 20 173/105 (127) 95 Room Air 07/16/23 19:00 91 07/16/23 18:00 98 12 158/93 (114) 95 Room Air 07/16/23 17:00 88 29 152/90 (110) 95 Room Air 07/16/23 16:00 36.7 07/16/23 16:00 108 11 167/115 (132) 95 Room Air 07/16/23 16:00 96 Room Air 07/16/23 15:00 89 19 137/75 (95) 95 Room Air 07/16/23 14:00 103 17 147/99 (121) 98 Room Air 07/16/23 13:00 89 21 158/84 (113) 94 Room Air 07/16/23 12:45 89 07/16/23 12:00 96 Room Air 07/16/23 12:00 99 13 142/73 (97) 95 Room Air 07/16/23 11:46 36.5 07/16/23 11:00 84 21 160/85 (119) 95 Room Air 07/16/23 10:00 104 12 94 Room Air I & O0 07/17/23 07:00 Intake Total 1300 ml Output Total 1625 ml Balance -325 ml Capillary Refill : Less Than 3 Seconds General Appearance: No Apparent Distress, Obese Neck: Non Tender Respiratory: Normal Breath Sounds, No Accessory Muscle Use, No Respiratory Distress Cardiovascular: Regular Rate, Rhythm, No JVD Peripheral Pulses: 2+ Carotid (R), 2+ Carotid (L), 2+ Dorsalis Pedis (R), 2+ Left Dors-Pedis (L), 2+ Radial Pulses (R), 2+ Radial Pulses (L) Gastrointestinal: non tender (in all 4 quadrants and epigastric area upon palpation), soft Extremity: No Pedal Edema Neurologic/Psychiatric: Alert, Oriented x3 Skin: Normal Color, Warm/Dry Results Lab Laboratory Tests 07/17/23 04:34: White Blood Count 6.8, Red Blood Count 3.50L, Hemoglobin 12.4, Hematocrit 35, Mean Corpuscular Volume 101H, Mean Corpuscular Hemoglobin 35H, Mean Corpuscular Hemoglobin Concent 35, Red Cell Distribution Width 12.1, Platelet Count 92L, Mean Platelet Volume 11.4, Immature Granulocyte % (Auto) 1, Neutrophils (%) (Auto) 80H, Lymphocytes (%) (Auto) 10L, Monocytes (%) (Auto) 8, Eosinophils (%) (Auto) 2, Basophils (%) (Auto) 0, Neutrophils # (Auto) 5.4, Lymphocytes # (Auto) 0.7L, Monocytes # (Auto) 0.5, Eosinophils # (Auto) 0.1, Basophils # (Auto) 0.0, Immature Granulocyte # (Auto) 0.0, Magnesium Level 2.0 07/17/23 04:36: Sodium Level 136, Potassium Level 3.7, Chloride Level 107, Carbon Dioxide Level 20L, Anion Gap 9, Blood Urea Nitrogen 10, Creatinine 0.77, Estimat Glomerular Fi ltration Rate 97, BUN/Creatinine Ratio 13, Glucose Level 85, Calcium Level 8.8, Corrected Calcium 9.4, Total Bilirubin 1.4H, Aspartate Amino Transf (AST/SGOT) 15, Alanine Aminotransferase (ALT/SGPT) 12, Alkaline Phosphatase 69, Total Protein 6.3L, Albumin 3.3 Microbiology 07/15/23 MRSA Screen - Final, Complete MRSA not isolated 07/15/23 Blood Culture - Preliminary, Resulted Assessment/Plan Assessment/Plan Assessment/Plan Perforated diverticulitis Thrombocytopenia - platelets 92 (from 96 yesterday) Substance abuse: Tobacco Fever - resolved as of today NPO for possible surgery and bowel rest for perforation Zosyn IV fluids Reviewed ct scan localized perforation (07/15/23) - showed 4.4 cm pericolonic gas collection and localized perforation of sigmoid colon Continue conservative measures, but if exam changes may need surgical intervention. Better today, continue conservative measures. WBC now 6.8 from 7.8 yesterday. HARRISON GALLEGOS DO 07/17/23 1555: Subjective Time Seen by a Provider: 13:29 Subjective/Events-last exam Pt seen and examined, no new complaints. States pain is better and she is hungry. Review of Systems Pulmonary: No Dyspnea, No Cough Cardiovascular: No: Chest Pain, Palpitations Gastrointestinal: Abdominal Pain (other than occassional cramps in lower abdomen when she moves); No: Nausea, Vomiting Objective Exam General Appearance: No Apparent Distress, Obese Respiratory: Lungs Clear, Normal Breath Sounds, No Accessory Muscle Use, No Respiratory Distress Cardiovascular: Regular Rate, Rhythm, No Murmur Gastrointestinal: soft, tenderness (mostly LLQ with deep palpation) Extremity: No Pedal Edema Neurologic/Psychiatric: Alert, Oriented x3 Assessment/Plan Assessment/Plan Assessment/Plan Perforated diverticulitis Thrombocytopenia - platelets 92 (from 96 yesterday) Substance abuse: Tobacco Fever - resolved as of today Will allow some ice chips, continue Zosyn, IV fluids Continue conservative measures, but if exam changes may need surgical intervention. Better today, continue conservative measures. WBC now 6.8 from 7.8 yesterday. Supervisory-Addendum Brief Verification & Attestation Participated in pt care: history, MDM, physical Personally performed: exam, history, MDM, supervision of care Care discussed with: Medical Student Procedures: n/a Verification and Attestation of Medical Student E/M Service A medical student performed and documented this service. I then reviewed and verified all information documented by the medical student and made modifications to such information, when appropriate. I personally performed a physical exam, medical decision making and then discussed any differences between the notes and made revisions as necessary to create one note. Harrison Gallegos , 07/17/23 , 15:55 TERRY LONGORIA Jul 17, 2023 09:48 HARRISON GALLEGOS DO Jul 17, 2023 15:55
--- NOTE | 2023-07-17 10:39 | Tele-ICU Progress Note ---
Subjective Date Seen by a Provider: Jul 17, 2023 Time Seen by a Provider: 10:38 Subjective/Events-last exam (Tele-ICU Physician , Progress Note ) Service provided via interactive audio and video telecommunications E-CARE system to a patient admitted to ICU bed in [facility]. Patient is seen today due to persistent need of ICU care Available chart/ vitals / labs / Images reviewed Video assessment done using teleICU camera, rest of exam as per RN Discussed with RN Events overnight : Afebrile hemodynamically stable Respiratory - I/O = Drips: Pressors- no Hospital course: A/P Perforated diverticulitis ( ct scan localized perforation (07/15/23) - as per sx - abx - monitor Thrombocytopenia - monitor, not on lovenox IV fluids Lines : periph , (Central Line Necessity Reviewed) Tena: OG: Nutrition: npo Analgesia: Anxiety/ delirium VTE Prophylaxis: scd Stress Ulcer Prophylaxis: na Plans in collaboration with bedside consultants and IM MDs. Discussed with RN to reach out if any questions or concerns Case and care daily discussed on multidisciplinary rounds ( RN, PharmD, Correspondence Section Supervisor , Respiratory Therapy, tipple worker ) A total of _10 minutes of critical care time was devoted to this patient today, required to treat and/or prevent further deterioration of critical care condition ( as above ) . I am remotely monitoring this patient from another state. I am unable to do the bedside exam, and history/physical and pertinent information is taken from other notes in the computer and bedside staff. Sepsis Event Evaluation Height, Weight, BMI Height: '" Weight: lbs. oz. kg; 39.44 BMI Method: Focused Exam Lactate Level 07/15/23 02:38: Lactic Acid Level 0.79 07/15/23 07:15: Lactic Acid Level 0.65 Time of Focused Exam: 0430 Exam Exam Patient acknowledged, consented, and participated in this virtual visit which was conducted using real time audio/video Vital Signs Date Time Temp Pulse Resp B/P (MAP) Pulse Ox O2 Delivery O2 Flow Rate FiO2 07/17/23 10:00 84 19 151/84 (109) 97 Room Air 07/17/23 09:00 85 10 150/86 (104) 95 Room Air 07/17/23 08:11 36.0 07/17/23 08:00 75 175/117 (149) 94 Room Air 07/17/23 08:00 97 Room Air 07/17/23 07:00 80 131/90 (103) 96 Room Air 07/17/23 07:00 82 07/17/23 06:00 77 125/72 (89) 94 Room Air 07/17/23 05:00 98 17 153/98 (116) 95 Room Air 07/17/23 04:00 82 12 129/77 (94) 95 Room Air 07/17/23 04:00 96 Room Air 07/17/23 04:00 37.0 07/17/23 03:00 92 36 143/79 (100) 93 Room Air 07/17/23 02:00 84 10 129/77 (94) 94 Room Air 07/17/23 01:00 83 17 143/82 (102) 95 Room Air 07/17/23 00:41 87 07/17/23 00:00 82 18 121/80 (94) 95 Room Air 07/16/23 23:59 96 Room Air 07/16/23 23:50 36.9 07/16/23 23:00 89 20 127/79 (95) 95 Room Air 07/16/23 22:00 88 20 145/88 (107) 95 Room Air 07/16/23 21:00 91 26 150/91 (110) 94 Room Air 07/16/23 20:00 86 20 133/90 (104) 95 Room Air 07/16/23 20:00 96 Room Air 07/16/23 19:54 37.7 07/16/23 19:00 111 20 173/105 (127) 95 Room Air 07/16/23 19:00 91 07/16/23 18:00 98 12 158/93 (114) 95 Room Air 07/16/23 17:00 88 29 152/90 (110) 95 Room Air 07/16/23 16:00 36.7 07/16/23 16:00 108 11 167/115 (132) 95 Room Air 07/16/23 16:00 96 Room Air 07/16/23 15:00 89 19 137/75 (95) 95 Room Air 07/16/23 14:00 103 17 147/99 (121) 98 Room Air 07/16/23 13:00 89 21 158/84 (113) 94 Room Air 07/16/23 12:45 89 07/16/23 12:00 96 Room Air 07/16/23 12:00 99 13 142/73 (97) 95 Room Air 07/16/23 11:46 36.5 07/16/23 11:00 84 21 160/85 (119) 95 Room Air I & O 07/17/23 07:00 Intake Total 1300 ml Output Total 1625 ml Balance -325 ml Height & Weight Height: '" Weight: lbs. oz. kg; 39.44 BMI Method: General Appearance: No Apparent Distress, Obese Neck: Non Tender Respiratory: Normal Breath Sounds, No Accessory Muscle Use, No Respiratory Distress Cardiovascular: Regular Rate, Rhythm, No JVD Capillary Refill: Less Than 3 Seconds Peripheral Pulses: 2+ Carotid (R), 2+ Carotid (L), 2+ Dorsalis Pedis (R), 2+ Left Dors-Pedis (L), 2+ Radial Pulses (R), 2+ Radial Pulses (L) Gastrointestinal: non tender (in all 4 quadrants and epigastric area upon palpation), soft Extremity: No Pedal Edema Neurologic/Psychiatric: Alert, Oriented x3 Skin: Normal Color, Warm/Dry Results Lab Laboratory Tests 07/16/23 05:00 07/17/23 04:34 07/17/23 04:36 Assessment/Plan Assessment/Plan 1 CELSO GREEN MD Jul 17, 2023 10:38
[2023-07-18] MEDS: PIPERACILLIN/Tazobactam 4.5 GM in NS (IVPB) 100 ML 100 ML IV SCH ×3 (01:39→17:39)
[2023-07-18] MEDS: LACTATED RINGERS 1,000 ML 1,000 ML IV SCH ×4 (01:39→19:32)
[2023-07-18] MEDS: VASOPRESSIN INJECTION 20 UNIT in NS (IVPB) 100 ML 100 ML IV SCH ×2 (01:39→13:18)
[2023-07-18] MEDS: NOREPINEPHRINE 8 MG/250 ML 250 ML IV SCH ×2 (01:40→13:53)
[2023-07-18 05:24] LABS: BASOPHILS % (AUTO) 0 % (0-10); LYMPHOCYTES # (AUTO) 0.7 10^3/uL (1.0-4.0); MEAN CORPUSCULAR VOLUME 100 fL (80-99)
[2023-07-18 05:26] LABS: EOSINOPHILS # (AUTO) 0.1 10^3/uL (0.0-0.3); EOSINOPHILS % (AUTO) 2 % (0-10); HEMATOCRIT 34 % (35-52); LYMPHOCYTES % (AUTO) 11 % (12-44); MEAN CORPUSCULAR HEMOGLOBIN 35 pg (25-34); MEAN CORPUSCULAR HGB CONC 35 g/dL (32-36); MONOCYTES # (AUTO) 0.6 10^3/uL (0.0-1.0); MONOCYTES % (AUTO) 9 % (0-12); NEUTROPHILS # (AUTO) 4.7 10^3/uL (1.8-7.8); NEUTROPHILS % (AUTO) 77 % (42-75); PLATELET COUNT 113 10^3/uL (130-400); WHITE BLOOD COUNT 6.1 10^3/uL (4.3-11.0)
[2023-07-18 05:53] LABS: ALBUMIN 3.2 GM/DL (3.2-4.5); BILIRUBIN,TOTAL 0.8 MG/DL (0.1-1.0); CALCIUM 8.7 MG/DL (8.5-10.1); CREATININE SERUM 0.71 MG/DL (0.60-1.30); MAGNESIUM 1.8 MG/DL (1.6-2.4); POTASSIUM 3.5 MMOL/L (3.6-5.0); TOTAL PROTEIN 6.2 GM/DL (6.4-8.2)
[2023-07-18] MEDS: POTASSIUM CL 10MEQ/50ML IVPB 50 ML IV SCH ×4 (05:56→09:49)
[2023-07-18] MEDS: POTASSIUM CHLORIDE 20 MEQ TABLET PO SCH (05:56)
[2023-07-18] MEDS: MAGNESIUM 1 GM/100 ML IVPB 100 ML IV SCH ×3 (05:56→09:49)
--- NOTE | 2023-07-18 06:45 | Progress Note - Surgery ---
JENNA GARRETT 07/18/23 0645: Subjective Date Seen by a Provider: Jul 18, 2023 Time Seen by a Provider: 06:40 Subjective/Events-last exam Pt reports feeling much better. States pain is minimal but feels her belly "gurgling" and gets crampy pains when that happens. Tenderness noted in RLQ. Abd is soft with some distention. Pt states she have been passing gas which provides some relief to crampiess. No nausea or vomiting. No BM. No rigidity, guarding, or rebound tenderness. Still NPO but with some ice chips yesterday. Nurse reports hypoactive bowel sounds. Pt says she barely touched them. No fever, chest pain, or shortness of breath. Review of Systems General: No Chills, No Night Sweats HEENT: No Head Aches, No Ear Pain Pulmonary: No Dyspnea, No Cough Cardiovascular: No: Chest Pain, Palpitations Gastrointestinal: Abdominal Pain (some RLQ tenderness with palpation); No: Nausea, Vomiting Genitourinary: No Dysuria, No Frequency Musculoskeletal: No: shoulder pain, back pain Neurological: No: Weakness, Numbness Focused Exam Lactate Level 07/15/23 07:15: Lactic Acid Level 0.65 Time of Focused Exam: 0430 Objective Exam Vital Signs Date Time Temp Pulse Resp B/P (MAP) Pulse Ox O2 Delivery O2 Flow Rate FiO2 07/18/23 06:00 82 14 139/77 (97) 93 Room Air 07/18/23 05:00 82 9 137/74 (95) 92 Room Air 07/18/23 04:25 98 Room Air 07/18/23 04:00 82 21 127/75 (92) 91 Room Air 07/18/23 04:00 36.7 07/18/23 03:00 98 33 94 Room Air 07/18/23 02:00 83 17 139/76 (108) 95 Room Air 07/18/23 01:40 155/77 07/18/23 01:39 155/77 07/18/23 01:00 84 07/18/23 01:00 84 20 155/77 (102) 94 Room Air 07/18/23 00:38 107 19 159/93 (124) Room Air 07/18/23 00:00 36.6 07/18/23 00:00 86 94 Room Air 07/17/23 23:59 97 Room Air 07/17/23 23:00 93 29 137/79 (108) 95 Room Air 07/17/23 22:00 89 20 145/73 (98) 94 Room Air 07/17/23 21:00 84 23 128/72 (92) 93 Room Air 07/17/23 20:36 97 Room Air 07/17/23 20:00 102 11 154/89 (110) 97 Room Air 07/17/23 19:58 36.7 07/17/23 19:00 91 07/17/23 19:00 91 22 158/87 (105) 96 Room Air 07/17/23 18:00 84 28 142/85 (114) 96 Room Air 07/17/23 17:00 86 15 139/75 (96) 96 Room Air 07/17/23 16:00 81 17 131/82 (104) 93 Room Air 07/17/23 16:00 98 Room Air 07/17/23 15:00 91 24 177/103 (143) 97 Room Air 07/17/23 14:00 89 13 162/96 (115) 97 Room Air 07/17/23 13:00 95 14 151/88 (120) 100 Room Air 07/17/23 12:38 84 07/17/23 12:12 36.9 07/17/23 12:00 96 21 146/84 (116) 98 Room Air 07/17/23 12:00 98 Room Air 07/17/23 11:00 80 20 144/96 (121) 94 Room Air 07/17/23 10:00 84 19 151/84 (109) 97 Room Air 07/17/23 09:00 85 10 150/86 (104) 95 Room Air 07/17/23 08:11 36.0 07/17/23 08:00 75 175/117 (149) 94 Room Air 07/17/23 08:00 97 Room Air 07/17/23 07:00 80 131/90 (103) 96 Room Air 07/17/23 07:00 82 I & O 07/18/23 07:00 Intake Total 2100 ml Output Total 2300 ml Balance -200 ml Capillary Refill : Less Than 3 Seconds General Appearance: No Apparent Distress, Obese HEENT: PERRL/EOMI, TMs Normal, Normal ENT Inspection, Pharynx Normal Neck: Non Tender, Supple Respiratory: Lungs Clear, No Accessory Muscle Use, No Respiratory Distress Cardiovascular: Regular Rate, Rhythm, No Murmur Peripheral Pulses: 2+ Carotid (R), 2+ Carotid (L), 2+ Dorsalis Pedis (R), 2+ Left Dors-Pedis (L), 2+ Radial Pulses (R), 2+ Radial Pulses (L) Gastrointestinal: soft, tenderness (mostly RLQ with deep palpation) Extremity: Non Tender, No Pedal Edema Neurologic/Psychiatric: Alert, Oriented x3 Skin: Normal Color, Warm/Dry Lymphatic: No Adenopathy Results Lab Laboratory Tests 07/18/23 04:20: White Blood Count 6.1, Red Blood Count 3.41L, Hemoglobin 12.0, Hematocrit 34L, Mean Corpuscular Volume 100H, Mean Corpuscular Hemoglobin 35H, Mean Corpuscular Hemoglobin Concent 35, Red Cell Distribution Width 11.7, Platelet Count 113L, Mean Platelet Volume 12.0, Immature Granulocyte % (Auto) 1, Neutrophils (%) (Auto) 77H, Lymphocytes (%) (Auto) 11L, Monocytes (%) (Auto) 9, Eosinophils (%) (Auto) 2, Basophils (%) (Auto) 0, Neutrophils # (Auto) 4.7, Lymphocytes # (Auto) 0.7L, Monocytes # (Auto) 0.6, Eosinophils # (Auto) 0.1, Basophils # (Auto) 0.0, Immature Granulocyte # (Auto) 0.0, Percent Immature Platelet Fraction 8.2H, S odium Level 136, Potassium Level 3.5L, Chloride Level 106, Carbon Dioxide Level 19L, Anion Gap 11, Blood Urea Nitrogen 7, Creatinine 0.71, Estimat Glomerular Filtration Rate 107, BUN/Creatinine Ratio 10, Glucose Level 75, Calcium Level 8.7, Corrected Calcium 9.3, Magnesium Level 1.8, Total Bilirubin 0.8, Aspartate Amino Transf (AST/SGOT) 23, Alanine Aminotransferase (ALT/SGPT) 20, Alkaline Phosphatase 65, Total Protein 6.2L, Albumin 3.2 Microbiology 07/15/23 MRSA Screen - Final, Complete MRSA not isolated 07/15/23 Blood Culture - Preliminary, Resulted Assessment/Plan Assessment/Plan Assessment/Plan Perforated diverticulitis Thrombocytopenia - platelets 113 (from 92 yesterday) Substance abuse: Tobacco Fever - resolved as of today advancing diet to clears Continue Zosyn IV fluids Continue conservative measures, but if exam changes may need surgical intervention. Better today, continue conservative measures. WBC now 6.1 from 6.8 yesterday. Repeat labs in AM Continue ambulation as tolerated GI prophylaxis CT abd/pelvis today Move from ICU NORMA BURNHAM DO 07/18/23 1036: Subjective Subjective/Events-last exam Feeling better. Passing gas. WBC 6.1. Afebrile. Denies n/v fever sweats chills shortness of breath or chest pain. Objective Exam General Appearance: No Apparent Distress, Obese HEENT: PERRL/EOMI, Normal ENT Inspection Neck: Non Tender, Supple Respiratory: Chest Non Tender, No Accessory Muscle Use Cardiovascular: Regular Rate, Rhythm, No JVD Gastrointestinal: soft, tenderness (lower abdomen, minimal) Extremity: Non Tender Neurologic/Psychiatric: Alert, Oriented x3 Skin: Normal Color, Warm/Dry Lymphatic: No Adenopathy Assessment/Plan Assessment/Plan Assessment/Plan Perforated diverticulitis Thrombocytopenia - platelets 113 (from 92 yesterday) Substance abuse: Tobacco Fever - resolved as of today advancing diet to clears Continue Zosyn IV fluids Continue conservative measures, but if exam changes may need surgical intervention. WBC now 6.1 from 6.8 yesterday. Repeat labs in AM Continue ambulation as tolerated GI prophylaxis CT abd/pelvis today Ambulate tid Supervisory-Addendum Brief Verification & Attestation Participated in pt care: history, MDM, physical Personally performed: exam, history, MDM, supervision of care Care discussed with: Medical Student Procedures: n/a Results interpretation: Verified all documentation Verification and Attestation of Medical Student E/M Service A medical student performed and documented this service in my presence. I reviewed and verified all information documented by the medical student and made modifications to such information, when appropriate. I personally performed the physical exam and medical decision making. Norma Burnham, Jul 18, 2023,10:34 JENNA GARRETT Jul 18, 2023 06:45 NORMA BURNHAM DO Jul 18, 2023 10:36
[2023-07-18] MEDS ORDERED: HOLD METFORMIN - RECEIVED CONTRAST 20 ML VIAL IV SCH (08:00)
[2023-07-18] MEDS ORDERED: IOHEXOL 350 MG/ML 100 ML (OMNIPAQUE 350) VIAL IV ONE (08:00)
[2023-07-18] MEDS ORDERED: NS 100 ML (IVPB) BAG IV ONE (08:00)
[2023-07-18] MEDS: PANTOPRAZOLE INJECTION 40 MG VIAL IV SCH (08:19)
--- NOTE | 2023-07-18 08:38 | Diagnostic Imaging Report ---
PROCEDURE: CT abdomen and pelvis with contrast. TECHNIQUE: Multiple contiguous axial images were obtained through the abdomen and pelvis after administration of intravenous contrast. Auto Exposure Controls were utilized during the CT exam to meet ALARA standards for radiation dose reduction. All CT scans use one or more of the following dose optimizing techniques: automated exposure control, MA and/or KvP adjustment based on patient size and exam type or iterative reconstruction. INDICATION: Abdominal pain. Patient status post bowel perforation. No prior studies are available for comparison. Imaging through the lung bases does show some atelectasis in the right lower lobe posteriorly. There appears to be some trace pleural fluid in the right base as well. No focal liver mass is detected. Gallbladder is unremarkable. There is no biliary ductal dilatation. Pancreas and spleen are unremarkable. No adrenal mass is detected. Kidneys are unremarkable. No definite calculi or hydronephrosis is detected. Aorta is nonaneurysmal. There are some mildly prominent lymph nodes in the central retroperitoneum, nonspecific. Bowel loops are normal in caliber. There is no definite evidence of obstruction. There is marked wall thickening involving the sigmoid colon with surrounding inflammatory stranding present. There are several small gas bubbles noted between the inflamed sigmoid colon and the uterus suggestive of hollow viscus perforation. No discrete fluid collection is identified to suggest abscess formation at this time. There is some minimal trace free fluid in the deep pelvis. Bladder is unremarkable. IMPRESSION: 1. Trace right pleural effusion with associated right basilar atelectasis. 2. Significant wall thickening and surrounding inflammation involving the sigmoid colon consistent with a nonspecific colitis/diverticulitis. There are several gas bubbles adjacent to the inflamed sigmoid consistent with microperforation. No discrete drainable fluid collection is identified at this time. There is no evidence of bowel obstruction. Dictated by: Dictated on workstation # [id number]
[2023-07-18] MEDS: fentaNYL INJECTION 100 MCG/2 ML VIAL IV PRN (09:55)
[2023-07-18] MEDS: HYDROcodone/ACETAMINOPHEN 5 MG/325 MG TABLET PO PRN ×3 (11:29→20:00)
--- NOTE | 2023-07-18 12:22 | Tele-ICU Progress Note ---
Subjective Date Seen by a Provider: Jul 18, 2023 Time Seen by a Provider: 12:22 Subjective/Events-last exam (Tele-ICU Physician , Progress Note ) Service provided via interactive audio and video telecommunications E-CARE system to a patient admitted to ICU bed in [facility]. Patient is seen today due to persistent need of ICU care Available chart/ vitals / labs / Images reviewed Video assessment done using teleICU camera, rest of exam as per RN Discussed with RN Events overnight : abd pain -> CT Afebrile hemodynamically stable Respiratory - ra I/O = ++ Drips: ns 150 Pressors- no Hospital course: (07/15) 43F Admitted from Outside ER for perforated diverticulitis, thrombocytopenia. CT ABD: localized perforation. Conservativie measures A/P Perforated diverticulitis ( ct scan localized perforation (07/15/23) and on CT 07/18 - as per sx - abx - monitor Thrombocytopenia - monitor, not on lovenox IV fluids atelectasis on CT - > IS Lines : periph , (Central Line Necessity Reviewed) Tena: void OG: Nutrition: clear s Analgesia: Anxiety/ delirium VTE Prophylaxis: scd arin when OK with sx Stress Ulcer Prophylaxis: na Plans in collaboration with bedside consultants and IM MDs. Discussed with RN to reach out if any questions or concerns Case and care daily discussed on multidisciplinary rounds ( RN, PharmD, Industrial Truck Mechanic , Respiratory Therapy, tanyard worker ) A total of _10 minutes of critical care time was devoted to this patient today, required to treat and/or prevent further deterioration of critical care condition ( as above ) . I am remotely monitoring this patient from another state. I am unable to do the bedside exam, and history/physical and pertinent information is taken from other notes in the computer and bedside staff. Sepsis Event Evaluation Height, Weight, BMI Height: '" Weight: lbs. oz. kg; 40.05 BMI Method: Focused Exam Time of Focused Exam: 0430 Exam Exam Patient acknowledged, consented, and participated in this virtual visit which was conducted using real time audio/video Vital Signs Date Time Temp Pulse Resp B/P (MAP) Pulse Ox O2 Delivery O2 Flow Rate FiO2 07/18/23 11:00 85 34 153/99 (117) 95 Room Air 07/18/23 10:00 74 24 109/57 (74) 94 Room Air 07/18/23 09:00 91 22 105/78 (87) 93 Room Air 07/18/23 08:15 36.4 07/18/23 08:15 93 20 136/77 (96) 92 Room Air 07/18/23 08:00 98 Room Air 07/18/23 07:30 74 07/18/23 07:00 89 27 166/98 (120) 94 Room Air 07/18/23 06:00 82 14 139/77 (97) 93 Room Air 07/18/23 05:00 82 9 137/74 (95) 92 Room Air 07/18/23 04:25 98 Room Air 07/18/23 04:00 82 21 127/75 (92) 91 Room Air 07/18/23 04:00 36.7 07/18/23 03:00 98 33 94 Room Air 07/18/23 02:00 83 17 139/76 (108) 95 Room Air 07/18/23 01:40 155/77 07/18/23 01:39 155/77 07/18/23 01:00 84 07/18/23 01:00 84 20 155/77 (102) 94 Room Air 07/18/23 00:38 107 19 159/93 (124) Room Air 07/18/23 00:00 36.6 07/18/23 00:00 86 94 Room Air 07/17/23 23:59 97 Room Air 07/17/23 23:00 93 29 137/79 (108) 95 Room Air 07/17/23 22:00 89 20 145/73 (98) 94 Room Air 07/17/23 21:00 84 23 128/72 (92) 93 Room Air 07/17/23 20:36 97 Room Air 07/17/23 20:00 102 11 154/89 (110) 97 Room Air 07/17/23 19:58 36.7 07/17/23 19:00 91 07/17/23 19:00 91 22 158/87 (105) 96 Room Air 07/17/23 18:00 84 28 142/85 (114) 96 Room Air 07/17/23 17:00 86 15 139/75 (96) 96 Room Air 07/17/23 16:00 81 17 131/82 (104) 93 Room Air 07/17/23 16:00 98 Room Air 07/17/23 15:00 91 24 177/103 (143) 97 Room Air 07/17/23 14:00 89 13 162/96 (115) 97 Room Air 07/17/23 13:00 95 14 151/88 (120) 100 Room Air 07/17/23 12:38 84 I & O 07/18/23 07:00 Intake Total 2100 ml Output Total 2300 ml Balance -200 ml Height & Weight Height: '" Weight: lbs. oz. kg; 40.05 BMI Method: General Appearance: No Apparent Distress, Obese HEENT: PERRL/EOMI, Normal ENT Inspection Neck: Non Tender, Supple Respiratory: Chest Non Tender, No Accessory Muscle Use Cardiovascular: Regular Rate, Rhythm, No JVD Capillary Refill: Less Than 3 Seconds Peripheral Pulses: 2+ Carotid (R), 2+ Carotid (L), 2+ Dorsalis Pedis (R), 2+ Left Dors-Pedis (L), 2+ Radial Pulses (R), 2+ Radial Pulses (L) Gastrointestinal: soft, tenderness (lower abdomen, minimal) Extremity: Non Tender Neurologic/Psychiatric: Alert, Oriented x3 Skin: Normal Color, Warm/Dry Lymphatic: No Adenopathy Results Lab Laboratory Tests 07/17/23 04:34 07/17/23 04:36 07/18/23 04:20 Assessment/Plan Assessment/Plan 1 CELSO GREEN MD Jul 18, 2023 12:22
--- NOTE | 2023-07-18 14:41 | Physical Therapy Evaluation ---
PT Evaluation-General Medical Diagnosis Admission Date Jul 15, 2023 at 06:07 Medical Diagnosis: sepsis/perforated sigmoid diverticulitis Onset Date: Jul 15, 2023 Therapy Diagnosis Therapy Diagnosis: debility Precautions Precautions/Isolations: Standard Precautions Referral Physician: Chacha Reason for Referral: Evaluation/Treatment Medical History Pertinent Medical History: Smoking Current History transfer from [facility] secondary to bowel perforation Prior Prior Level of Function SCALE: Activities may be completed with or without assistive devices. 0-Cmajngtuzo-xnbwcrj completes the activity by him/herself with no assistance from a helper. 5-Set-up or Clean-up Assistance-helper sets up or cleans up; patient completes activity. [place] assists only prior to or following the activity. 4-Supervision or Touching Assistance-helper provides verbal cues and/or touching/steadying and/or contact guard assistance as patient completes activity. Assistance may be provided throughout the activity or intermittently. 3-Partial/Moderate Assistance-helper does LESS THAN HALF the effort. [place] lifts, holds or supports trunk or limbs, but provides less than half the effort. 2-Substantial/Maximal Assistance-helper does MORE THAN HALF the effort. [place] lifts or holds trunk or limbs and provides more than half the effort. 8-Ippvdvzji-qjbxme does ALL the effort. Patient does none of the effort to complete the activity. Or, the assistance of 2 or more helpers is required for the patient to complete the activity. If activity was not attempted, code reason: 7-Patient Refused. 9-Not Applicable-not attempted and the patient did not perform the activity before the current illness, exacerbation or injury. 10-Not Attempted due to Environmental Limitations-(lack of equipment, weather restraints, etc.). 88-Not Attempted due to Medical Conditions or Safety Concerns. Bed Mobility: 6 Transfers (B,C,W/C): 6 Gait: 6 Indoor Mobility (Ambulation): Independent Stairs: Independent Prior Devices Use: None PT Evaluation-Current Subjective Patient agrees to PT. Objective Patient Orientation: Normal For Age ROM/Strength ROM Lower Extremities bilateral LE WFL Strength Lower Extremities 4/5 grossly bilateral LE all planes Integumentary/Posture Bowel Incontinence: No Bladder Incontinence: No Neuromuscular (Tone, Coordination, Reflexes) grossly intact Sensory Vision: Functional Hearing: Functional Transfers Lying to Sitting/Side of Bed(Q: 6 Sit to Stand (QC): 6 Chair/Lfi-fi-Flcsk Xfer(QC): 6 Gait Mode of Locomotion: Walk Anticipated Mode of Locomotion: Walk Walk 10 feet (QC): 6 Walk 50 ft with 2 Turns(QC): 6 Walk 150 ft (QC): 6 Distance: 400' Gait Assistive Device: FWW Comments/Gait Description slow, steady gait sequence Balance Sitting Static: Normal Sitting Dynamic: Normal Standing Static: Normal Standing Dynamic: Normal Assessment/Needs Patient is currently at independent LOF with all gross motor skills safely and does not require skilled PT intervention at this time. Patient instructed to ambulate 3 more time on this date. RN notified. Rehab Potential: Fair PT Plan Treatment/Plan Treatment Plan: Discontinue PT Treatment Duration: Jul 18, 2023 Frequency: 1 time per week Estimated Hrs Per Day: .5 hour per day Patient and/or Family Agrees t: Yes Time Time In: 1350 Time Out: 1410 DATE: Jul 18, 2023 Total Billed Treatment Time: 20 Total Billed Treatment 1 visit EVMod 20 min KAYLIN BAUER PT Jul 18, 2023 14:41
[2023-07-18] MEDS: ENOXAPARIN 40 MG/0.4 ML SYRINGE SC SCH (15:00)
--- NOTE | 2023-07-18 17:14 | Physician Query-Final Dx ---
GERTRUDIS ALBA 07/18/23 1714: Final Diagnosis Give Final Diagnosis Please give Final Diagnosis Clinical Validation Clarification Dr Maria Luisa Burnham Sepsis has been documented in the medical record. After study, has Sepsis been ruled out? If it has been ruled out, please document Sepsis ruled out" in the progress notes and/or discharge summary. Yes/Agreed, Sepsis ruled out/is not clinically valid Not agreed, Sepsis has not been ruled out/is clinically valid* *Please document the clinical evidence supportive of this diagnosis (even if now resolved) in the Progress Notes and Discharge Summary Other, with explanation of the clinical findings Clinically undetermined, no explanation for the clinical findings Additional information: Admitted with: perforated diverticulitis thrombocytopenia, substance abuse tobacco, fever, Vital Signs: HR 102, RR 20, BP 144/92, SpO2 Sat 96% on room air, T 39.0, WBC 9.6, Lactic acid 0.79 then 0.65 BC X 2 NGTD, Treatment ER: ER:, Zosyn IV, lactated Ringer's 1 L, fentanyl IV, normal saline 2L, ibuprofen, In responding to this query, please exercise your independent professional judgment. The purpose of this communication is to more accurately reflect the complexity of your patients condition. The fact that a question is asked does not imply that any particular answer is desired or expected. Thank you for your timely response to this clarification. Gertrudis Alba MSN, RN Clinical Circuit Designer NORMA BURNHAM DO 08/10/234: Final Diagnosis Give Final Diagnosis sepsis ruled out GERTRUDIS ALBA Jul 18, 2023 17:14 NORMA BURNHAM DO Aug 10, 2023 21:24
[2023-07-19] MEDS: fentaNYL INJECTION 100 MCG/2 ML VIAL IV PRN (02:00)
[2023-07-19] MEDS: PIPERACILLIN/Tazobactam 4.5 GM in NS (IVPB) 100 ML 100 ML IV SCH ×3 (02:17→16:12)
[2023-07-19] MEDS ORDERED: LIDOCAINE UROJET 2% GEL 10 ML PKG TOP ONE (02:45)
[2023-07-19] MEDS: NOREPINEPHRINE 8 MG/250 ML 250 ML IV SCH ×2 (02:50→11:06)
[2023-07-19] MEDS: VASOPRESSIN INJECTION 20 UNIT in NS (IVPB) 100 ML 100 ML IV SCH ×2 (02:50→11:06)
[2023-07-19 03:07] LABS: MEAN CORPUSCULAR VOLUME 99 fL (80-99)
[2023-07-19 03:08] LABS: BASOPHILS % (AUTO) 0 % (0-10); EOSINOPHILS % (AUTO) 0 % (0-10); HEMATOCRIT 39 % (35-52); HEMOGLOBIN 13.9 g/dL (11.5-16.0); LYMPHOCYTES # (AUTO) 0.5 10^3/uL (1.0-4.0); LYMPHOCYTES % (AUTO) 7 % (12-44); MEAN CORPUSCULAR HEMOGLOBIN 35 pg (25-34); MEAN CORPUSCULAR HGB CONC 35 g/dL (32-36); MEAN PLATELET VOLUME 11.1 fL (9.0-12.2); MONOCYTES # (AUTO) 0.5 10^3/uL (0.0-1.0); MONOCYTES % (AUTO) 9 % (0-12); NEUTROPHILS # (AUTO) 5.3 10^3/uL (1.8-7.8); NEUTROPHILS % (AUTO) 83 % (42-75); PLATELET COUNT 132 10^3/uL (130-400); WHITE BLOOD COUNT 6.4 10^3/uL (4.3-11.0)
[2023-07-19 03:17] LABS: ALBUMIN 3.2 GM/DL (3.2-4.5); POTASSIUM 4.1 MMOL/L (3.6-5.0)
[2023-07-19 03:19] LABS: CALCIUM 8.8 MG/DL (8.5-10.1)
[2023-07-19 03:20] LABS: TOTAL PROTEIN 6.3 GM/DL (6.4-8.2)
[2023-07-19 03:22] LABS: BILIRUBIN,TOTAL 1.6 MG/DL (0.1-1.0)
[2023-07-19 03:23] LABS: CREATININE SERUM 0.71 MG/DL (0.60-1.30)
[2023-07-19 03:27] LABS: MAGNESIUM 1.8 MG/DL (1.6-2.4)
[2023-07-19] MEDS: POTASSIUM CHLORIDE 20 MEQ TABLET PO SCH (04:40)
[2023-07-19] MEDS: POTASSIUM CL 10MEQ/50ML IVPB 50 ML IV SCH (04:40)
[2023-07-19] MEDS: MAGNESIUM 1 GM/100 ML IVPB 100 ML IV SCH ×3 (05:21→05:48)
[2023-07-19] MEDS ORDERED: MAGNESIUM 1 GM/100 ML IVPB 0 ML IV ONE (05:43)
[2023-07-19] MEDS: LACTATED RINGERS 1,000 ML 1,000 ML IV SCH ×4 (07:04→20:02)
--- NOTE | 2023-07-19 07:52 | Progress Note - Surgery ---
JENNA GARRETT 07/19/23 0752: Subjective Date Seen by a Provider: Jul 19, 2023 Time Seen by a Provider: 07:41 Subjective/Events-last exam Pt in a lot more pain today. Abd is diffusely tender to light palpation and distended. Normoactive bowel sounds. Had a small bowel movement last night when she urinated producing 400mL around 2am. Bladder scan was performed showing 328mL. urine output is 0.7ml/kg/hr Total bilirubin has been fluctuating over the past few days, 1.6 today, 0.8 yesterday, 1.4 on 07/17/23. WBC is 6.4 with 83% neutrophils. Pt denies fever, chest pain, palpitations, shortness of breath. Stated yesterday she had abd pain with breathing. CT results 07/18/23 1. Trace right pleural effusion with associated right basilar atelectasis. 2. Significant wall thickening and surrounding inflammation involving the sigmoid colon consistent with a nonspecific colitis/diverticulitis. There are several gas bubbles adjacent to the inflamed sigmoid consistent with microperforation. No discrete drainable fluid collection is identified at this time. There is no evidence of bowel obstruction. Review of Systems General: No Chills, No Night Sweats HEENT: No Head Aches, No Visual Changes Pulmonary: No Dyspnea, No Cough Cardiovascular: No: Chest Pain, Palpitations Gastrointestinal: Abdominal Pain (diffuse ); No: Nausea, Vomiting Genitourinary: No Incontinence; Retention Musculoskeletal: No: shoulder pain, back pain Neurological: No: Weakness, Numbness Focused Exam Sepsis Stage: Ruled Out Reason for ruling out sepsis: v/s stable, low lactic acid, no fever Lactate Level 07/19/23 02:55: Lactic Acid Level 0.79 Time of Focused Exam: 0430 Objective Exam Vital Signs Date Time Temp Pulse Resp B/P (MAP) Pulse Ox O2 Delivery O2 Flow Rate FiO2 07/19/23 07:24 36.1 07/19/23 06:00 99 18 125/85 (98) 92 Room Air 07/19/23 05:00 103 19 114/88 (97) 93 Room Air 07/19/23 04:00 130 17 143/95 (111) 95 Room Air 07/19/23 03:52 Room Air 07/19/23 03:00 120 31 137/84 (107) 93 Room Air 07/19/23 02:05 117 32 137/92 (121) 95 Room Air 07/19/23 01:00 37.5 07/19/23 01:00 96 132/96 (106) 92 Room Air 07/19/23 01:00 96 07/19/23 00:00 98 107/70 (82) 91 Room Air 07/18/23 23:59 Room Air 07/18/23 23:00 103 115/84 (94) 90 Room Air 07/18/23 22:00 108 36 89 Room Air 07/18/23 21:00 101 20 130/86 (102) 91 Room Air 07/18/23 20:00 111 15 158/88 (108) 91 Room Air 07/18/23 20:00 Room Air 07/18/23 19:43 36.2 07/18/23 19:00 104 07/18/23 19:00 104 20 123/79 (89) 89 Room Air 07/18/23 18:00 35.6 109 18 123/79 (94) 91 Room Air 07/18/23 17:00 110 22 147/91 (109) 90 Room Air 07/18/23 16:00 107 25 143/80 (101) 90 Room Air 07/18/23 16:00 98 Room Air 07/18/23 15:46 36.7 07/18/23 15:15 106 30 124/78 (93) 94 Room Air 07/18/23 13:00 120 35 158/111 (127) 97 Room Air 07/18/23 12:52 108 07/18/23 12:00 104 23 130/67 (88) 94 Room Air 07/18/23 12:00 98 Room Air 07/18/23 12:00 36.1 07/18/23 11:00 85 34 153/99 (117) 95 Room Air 07/18/23 10:00 74 24 109/57 (74) 94 Room Air 07/18/23 09:00 91 22 105/78 (87) 93 Room Air 07/18/23 08:15 36.4 07/18/23 08:15 93 20 136/77 (96) 92 Room Air 07/18/23 08:00 98 Room Air I & O 07/19/23 07:00 Intake Total 2450 ml Output Total 850 ml Balance 1600 ml Capillary Refill : Less Than 3 Seconds General Appearance: No Apparent Distress, Obese HEENT: PERRL/EOMI, Normal ENT Inspection Neck: Non Tender, Supple Respiratory: Chest Non Tender, No Accessory Muscle Use Cardiovascular: Regular Rate, Rhythm, No JVD Peripheral Pulses: 2+ Carotid (R), 2+ Carotid (L), 2+ Dorsalis Pedis (R), 2+ Left Dors-Pedis (L), 2+ Radial Pulses (R), 2+ Radial Pulses (L) Gastrointestinal: distended, guarding, tenderness (diffuse) Extremity: Non Tender, No Pedal Edema Neurologic/Psychiatric: Alert, Oriented x3 Skin: Normal Color, Warm/Dry Lymphatic: No Adenopathy (post auricular, submandibular, submental) Results Lab Laboratory Tests 07/19/23 02:55: White Blood Count 6.4, Red Blood Count 3.98, Hemoglobin 13.9, Hematocrit 39, Mean Corpuscular Volume 99, Mean Corpuscular Hemoglobin 35H, Mean Corpuscular Hemoglobin Concent 35, Red Cell Distribution Width 12.0, Platelet Count 132, Mean Platelet Volume 11.1, Immature Granulocyte % (Auto) 1, Neutrophils (%) (Auto) 83H, Lymphocytes (%) (Auto) 7L, Monocytes (%) (Auto) 9, Eosinophils (%) (Auto) 0, Basophils (%) (Auto) 0, Neutrophils # (Auto) 5.3, Lymphocytes # (Auto) 0.5L, Monocytes # (Auto) 0.5, Eosinophils # (Auto) 0.0, Basophils # (Auto) 0.0, Immature Granulocyte # (Auto) 0.0, Percent Immature Platelet Fraction 7.4, Sodium Level 131L, Potassium Level 4.1, Chloride Level 103, Carbon Dioxide Level 15L, Anion Gap 13, Blood Urea Nitrogen 8, Creatinine 0.71, Estimat Glomerular Filtration Rate 107, BUN/Creatinine Ratio 11, Glucose Level 135H, Lactic Acid Level 0.79, Calcium Level 8.8, Corrected Calcium 9.4, Magnesium Level 1.8, Total Bilirubin 1.6H, Aspartate Amino Transf (AST/SGOT) 22, Alanine Aminotransferase (ALT/SGPT) 20, Alkaline Phosphatase 61, Total Protein 6.3L, Albumin 3.2 Microbiology 07/15/23 MRSA Screen - Final, Complete MRSA not isolated 07/15/23 Blood Culture - Preliminary, Resulted Assessment/Plan Assessment/Plan Assessment/Plan Perforated diverticulitis Hyponatremia Substance abuse: Tobacco Fever - resolved as of 07/18/23 metabolic acidosis advancing diet to clears, if pain continues to worsen start NPO for bowel rest. Continue Zosyn IV fluids Continue conservative measures, but if exam changes may need surgical intervention. WBC now 6.4 from 6.1 yesterday. Repeat labs in AM GI prophylaxis CT abd/pelvis 07/19/23 Ambulate tid Move from ICU Monitor for urine retention Colonoscopy in 6-8 wks HARRISON GALLEGOS DO 07/19/23 1350: Subjective Time Seen by a Provider: 10:58 Subjective/Events-last exam Pt seen and examined, states she is better than yesterday; but abdomen is tender. Review of Systems General: No Chills, No Night Sweats Pulmonary: No Dyspnea, No Cough Cardiovascular: No: Chest Pain, Palpitations Gastrointestinal: Abdominal Pain (diffuse ); No: Nausea, Vomiting Genitourinary: Retention Objective Exam General Appearance: No Apparent Distress, Obese HEENT: PERRL/EOMI Respiratory: Lungs Clear, Normal Breath Sounds, No Accessory Muscle Use, No Respiratory Distress Cardiovascular: Regular Rate, Rhythm, No Murmur Gastrointestinal: soft, distended, guarding (voluntary), tenderness (diffuse - but more in suprapubic area) Extremity: Other (right UE with swelling secondary to blown IV and infiltration of IV fluid) Neurologic/Psychiatric: Alert, Oriented x3, Depressed Affect Assessment/Plan Assessment/Plan Assessment/Plan Perforated diverticulitis Hyponatremia Substance abuse: Tobacco Fever - resolved as of 07/18/23 metabolic acidosis Will transfer her down to 4th, continue on clears, if pain continues to worsen start NPO for bowel rest. Continue Zosyn IV fluids, Continue conservative measures, but if exam changes may need surgical intervention. WBC now 6.4 from 6.1 yesterday. Repeat labs in AM, GI prophylaxis, Ambulate tid and use IS, Monitor for urine retention, Colonoscopy in 6-8 wks Supervisory-Addendum Brief Verification & Attestation Participated in pt care: history, MDM, physical Personally performed: exam, history, MDM, supervision of care Care discussed with: Medical Student Procedures: n/a Verification and Attestation of Medical Student E/M Service A medical student performed and documented this service. I then reviewed and verified all information documented by the medical student and made modificat ions to such information, when appropriate. I personally performed a physical exam, medical decision making and then discussed any differences between the notes and made revisions as necessary to create one note. Harrison Gallegos , 07/19/23 , 13:50 JENNA GARRETT Jul 19, 2023 07:52 HARRISON GALLEGOS DO Jul 19, 2023 13:50
[2023-07-19] MEDS: PANTOPRAZOLE INJECTION 40 MG VIAL IV SCH (09:40)
[2023-07-19] MEDS: HYDROcodone/ACETAMINOPHEN 5 MG/325 MG TABLET PO PRN ×2 (10:09→15:33)
[2023-07-19] MEDS: ENOXAPARIN 40 MG/0.4 ML SYRINGE SC SCH (13:53)
[2023-07-19 15:53] VITALS: BP 122/90
[2023-07-19] MEDS ORDERED: IBUPROFEN 800 MG TABLET PO NR (16:15)
[2023-07-19 19:27] VITALS: BP 130/79
[2023-07-19 23:31] VITALS: BP 133/88
[2023-07-20] MEDS: PIPERACILLIN/Tazobactam 4.5 GM in NS (IVPB) 100 ML 100 ML IV SCH (01:46)
[2023-07-20 03:41] VITALS: BP 133/77
[2023-07-20 05:48] LABS: BASOPHILS % (AUTO) 0 % (0-10)
[2023-07-20 05:50] LABS: EOSINOPHILS % (AUTO) 1 % (0-10); HEMATOCRIT 37 % (35-52); HEMOGLOBIN 12.5 g/dL (11.5-16.0); LYMPHOCYTES # (AUTO) 0.5 10^3/uL (1.0-4.0); LYMPHOCYTES % (AUTO) 7 % (12-44); MEAN CORPUSCULAR HEMOGLOBIN 35 pg (25-34); MEAN CORPUSCULAR HGB CONC 34 g/dL (32-36); MEAN CORPUSCULAR VOLUME 101 fL (80-99); MEAN PLATELET VOLUME 11.9 fL (9.0-12.2); MONOCYTES # (AUTO) 0.4 10^3/uL (0.0-1.0); MONOCYTES % (AUTO) 6 % (0-12); NEUTROPHILS # (AUTO) 6.6 10^3/uL (1.8-7.8); NEUTROPHILS % (AUTO) 85 % (42-75); PLATELET COUNT 134 10^3/uL (130-400); WHITE BLOOD COUNT 7.7 10^3/uL (4.3-11.0)
[2023-07-20 06:16] LABS: ALBUMIN 2.8 GM/DL (3.2-4.5); BILIRUBIN,TOTAL 0.5 MG/DL (0.1-1.0); CALCIUM 8.6 MG/DL (8.5-10.1); CREATININE SERUM 0.7 MG/DL (0.60-1.30); MAGNESIUM 1.8 MG/DL (1.6-2.4); POTASSIUM 3.6 MMOL/L (3.6-5.0); TOTAL PROTEIN 5.8 GM/DL (6.4-8.2)
[2023-07-20 07:26] VITALS: BP 139/86
[2023-07-20] MEDS: LACTATED RINGERS 1,000 ML 1,000 ML IV SCH ×3 (07:41→14:26)
--- NOTE | 2023-07-20 07:52 | Progress Note - Surgery ---
JENNA GARRETT 07/20/23 0752: Subjective Date Seen by a Provider: Jul 20, 2023 Time Seen by a Provider: 07:41 Subjective/Events-last exam Pt feeling better today. Abd is diffusely tender, more so in epigastric region. Reports pain when starting urination. Once started no issues. Reports having one loose BM yesterday in ICU before being transferred [facility]. Urine output is 1.02mL/kg/hr. Seems to be tolerating clear diet well. Pt reports straining to have BMs at home and might only have 1 BM every 3-4 days and sometimes has urge for BM but can sit for extended periods of time without success. Pt sitting in chair comfortably at time of examination. Review of Systems General: No Chills, No Night Sweats HEENT: No Head Aches, No Visual Changes Pulmonary: No Dyspnea, No Cough Cardiovascular: No: Chest Pain, Palpitations Gastrointestinal: Abdominal Pain (more epigastric but diffuse); No: Nausea, Vomiting Genitourinary: No Dysuria, No Retention Musculoskeletal: No: shoulder pain, back pain Neurological: No: Weakness, Numbness Focused Exam Lactate Level 07/19/23 02:55: Lactic Acid Level 0.79 Time of Focused Exam: 0430 Objective Exam Vital Signs Date Time Temp Pulse Resp B/P (MAP) Pulse Ox O2 Delivery O2 Flow Rate FiO2 07/20/23 07:26 36.0 69 16 139/86 (103) 96 Room Air 07/20/23 03:41 36.8 97 20 133/77 (95) 95 Room Air 07/19/23 23:31 36.2 99 20 133/88 (103) 95 Room Air 07/19/23 19:33 Room Air 07/19/23 19:27 36.0 95 20 130/79 (96) 96 Room Air 07/19/23 17:00 104 07/19/23 15:53 38.2 130 20 122/90 (101) 96 Room Air 07/19/23 14:00 109 28 93 Room Air 07/19/23 13:15 37.2 07/19/23 13:00 115 18 142/89 (106) 92 Room Air 07/19/23 12:57 121 07/19/23 12:50 Room Air 07/19/23 12:45 121 18 136/89 (105) 92 Room Air 07/19/23 11:39 36.2 07/19/23 11:00 108 23 109/80 (90) 93 Room Air 07/19/23 10:00 98 18 130/98 (109) 92 Room Air 07/19/23 09:00 121 24 133/94 (107) 91 Room Air 07/19/23 08:52 Room Air 07/19/23 08:00 102 32 94 Room Air I & O 07/20/23 07:00 Intake Total 2900 ml Output Total 600 ml Balance 2300 ml Capillary Refill : Less Than 3 Seconds General Appearance: No Apparent Distress, Obese HEENT: PERRL/EOMI Neck: Non Tender, Supple Respiratory: No Accessory Muscle Use, No Respiratory Distress Cardiovascular: No Murmur, Tachycardia Peripheral Pulses: 2+ Carotid (R), 2+ Carotid (L), 2+ Dorsalis Pedis (R), 2+ Left Dors-Pedis (L), 2+ Radial Pulses (R), 2+ Radial Pulses (L) Gastrointestinal: soft, tenderness (diffuse - but more in epigastric area today) Extremity: Other (right UE with swelling secondary to blown IV and infiltration of IV fluid) Neurologic/Psychiatric: Alert, Oriented x3, Depressed Affect Skin: Normal Color, Warm/Dry Lymphatic: No Adenopathy (post auricular, submandibular, submental) Results Lab Laboratory Tests 07/20/23 05:07: White Blood Count 7.7, Red Blood Count 3.61L, Hemoglobin 12.5, Hematocrit 37, Mean Corpuscular Volume 101H, Mean Corpuscular Hemoglobin 35H, Mean Corpuscular Hemoglobin Concent 34, Red Cell Distribution Width 12.2, Platelet Count 134, Mean Platelet Volume 11.9, Immature Granulocyte % (Auto) 2, Neutrophils (%) (Auto) 85H, Lymphocytes (%) (Auto) 7L, Monocytes (%) (Auto) 6, Eosinophils (%) (Auto) 1, Basophils (%) (Auto) 0, Neutrophils # (Auto) 6.6, Lymphocytes # (Auto) 0.5L, Monocytes # (Auto) 0.4, Eosinophils # (Auto) 0.0, Basophils # (Auto) 0.0, Immature Granulocyte # (Auto) 0.1, Percent Immature Platelet Fraction 7.9H, Sodium Level 134L, Potassium Level 3.6, Chloride Level 103, Carbon Dioxide Level 22, Anion Gap 9, Blood Urea Nitrogen 7, Creatinine 0.70, Estimat Glomerular Filtration Rate 109, BUN/Creatinine Ratio 10, Glucose Level 100, Calcium Level 8.6, Corrected Calcium 9.6, Magnesium Level 1.8, Total Bilirubin 0.5, Aspartate Amino Transf (AST/SGOT) 16, Alanine Aminotransferase (ALT/SGPT) 14, Alkaline Phosphatase 69, Total Protein 5.8L, Albumin 2.8L Microbiology 07/15/23 MRSA Screen - Final, Complete MRSA not isolated 07/15/23 Blood Culture - Preliminary, Resulted Assessment/Plan Assessment/Plan Assessment/Plan Perforated diverticulitis Hyponatremia Substance abuse: Tobacco Fever - resolved as of 07/18/23 Continue on clears, if continuing to tolerate well today consider advancing diet tomorrow or Tuesday If pain worsens start NPO for bowel rest. Continue Zosyn IV fluids Continue conservative measures, but if exam changes may need surgical intervention. WBC now 7.7 from 6.4 yesterday. Repeat labs in AM GI prophylaxis Ambulate tid and use IS Monitor for urine retention Patient education on high fiber diet at home Colonoscopy in 6-8 wks HARRISON GALLEGOS DO 07/20/23 1430: Subjective Time Seen by a Provider: 13:17 Subjective/Events-last exam Pt seen and examined, she actually looks a little more alert and healthy. She states she is feeling a little better, still with some minimal abdominal pain and states has not had any flatus or BM. Review of Systems Pulmonary: No Dyspnea, No Cough Cardiovascular: No: Chest Pain, Palpitations Gastrointestinal: Abdominal Pain (more epigastric but diffuse); No: Nausea, Vo miting Objective Exam General Appearance: No Apparent Distress, Obese HEENT: PERRL/EOMI Respiratory: Lungs Clear, Normal Breath Sounds, No Accessory Muscle Use, No Re spiratory Distress Cardiovascular: Regular Rate, Rhythm, No Murmur Gastrointestinal: soft, tenderness (diffuse - but more in epigastric area today) Extremity: Other (right UE with swelling secondary to blown IV and infiltration of IV fluid) Neurologic/Psychiatric: Alert, Oriented x3 Skin: Normal Color, Warm/Dry Assessment/Plan Assessment/Plan Assessment/Plan Perforated diverticulitis Hyponatremia Substance abuse: Tobacco Fever - resolved as of 07/18/23 Pt looks better than yesterday. Continue on clears, if continuing to tolerate well today consider advancing diet tomorrow or Tuesday If pain worsens start NPO for bowel rest. Continue Zosyn, IV fluids. Continue conservative measures, but if exam changes may need surgical intervention. WBC now 7.7 from 6.4 yesterday. Repeat labs in AM GI prophylaxis Ambulate tid and use IS Monitor for urine retention Patient education on high fiber diet at home Colonoscopy in 6-8 wks Supervisory-Addendum Brief Verification & Attestation Participated in pt care: history, MDM, physical Personally performed: exam, history, MDM, supervision of care Care discussed with: Medical Student Procedures: n/a Verification and Attestation of Medical Student E/M Service A medical student performed and documented this service. I then reviewed and verified all information documented by the medical student and made modifi cations to such information, when appropriate. I personally performed a physical exam, medical decision making and then discussed any differences between the notes and made revisions as necessary to create one note. Harrison Gallegos , 07/20/23 , 14:31 JENNA GARRETT Jul 20, 2023 07:52 HARRISON GALLEGOS DO Jul 20, 2023 14:30
[2023-07-20] MEDS: PANTOPRAZOLE INJECTION 40 MG VIAL IV SCH (08:41)
[2023-07-20] MEDS: HYDROcodone/ACETAMINOPHEN 5 MG/325 MG TABLET PO PRN ×2 (11:21→18:25)
[2023-07-20 11:24] VITALS: BP 130/84
[2023-07-20] MEDS: ENOXAPARIN 40 MG/0.4 ML SYRINGE SC SCH (14:26)
--- NOTE | 2023-07-20 15:23 | Progress Note - Hospitalist ---
Subjective HPI/CC On Admission Date Seen by Provider: Jul 20, 2023 Subjective/Events-last exam Pt reports doing ok today. better than yesterday. No BM or flatus yet. Asked to see again due to tachycardia. Patient was pretty tachycardiac yesterday but it as resolved on it's own essentially. She has no chest pain or SOB. Focused Exam Lactate Level 07/19/23 02:55: Lactic Acid Level 0.79 Time of Focused Exam: 0430 Objective Exam Vital Signs Vital Signs Date Time Temp Pulse Resp B/P (MAP) Pulse Ox O2 Delivery O2 Flow Rate FiO2 07/20/23 11:24 36.4 108 16 130/84 (99) 98 Room Air Capillary Refill : Less Than 3 Seconds General Appearance: No Apparent Distress, WD/WN Respiratory: Lungs Clear, No Respiratory Distress Cardiovascular: Regular Rate, Rhythm (rate in the 90s when I auscultated), No Murmur Neurologic/Psychiatric: Alert, Oriented x3 Results/Procedures Lab Laboratory Tests 07/20/23 05:07 Patient resulted labs reviewed. Imaging: Reviewed Imaging Report Assessment/Plan Assessment and Plan Assess & Plan/Chief Complaint Perforated diverticulitis Fever Surgery primary CLD Completed Zosyn Fentanyl and hydrocodone for pain Tachycardia Resolved today EKG from yesterday unchanged from admission Continue to monitor DVT ppx: LOKESH Tse MD Jul 20, 2023 15:23
[2023-07-20 16:04] VITALS: BP 145/79
[2023-07-20 19:45] VITALS: BP 135/75
[2023-07-20 23:01] VITALS: BP 130/81
[2023-07-21] VITALS (7 sets, daily range): BP systolic 113–166; BP diastolic 72–102
[2023-07-21] MEDS: LACTATED RINGERS 1,000 ML 1,000 ML IV SCH ×3 (02:00→14:58)
[2023-07-21 04:37] LABS: BASOPHILS % (AUTO) 0 % (0-10); EOSINOPHILS # (AUTO) 0.1 10^3/uL (0.0-0.3); EOSINOPHILS % (AUTO) 1 % (0-10); HEMATOCRIT 33 % (35-52); HEMOGLOBIN 11.4 g/dL (11.5-16.0); LYMPHOCYTES # (AUTO) 0.8 10^3/uL (1.0-4.0); LYMPHOCYTES % (AUTO) 11 % (12-44); MEAN CORPUSCULAR HEMOGLOBIN 35 pg (25-34); MEAN CORPUSCULAR HGB CONC 34 g/dL (32-36); MEAN CORPUSCULAR VOLUME 101 fL (80-99); MEAN PLATELET VOLUME 11.5 fL (9.0-12.2); MONOCYTES # (AUTO) 0.5 10^3/uL (0.0-1.0); MONOCYTES % (AUTO) 6 % (0-12); NEUTROPHILS # (AUTO) 6.2 10^3/uL (1.8-7.8); NEUTROPHILS % (AUTO) 81 % (42-75); PLATELET COUNT 148 10^3/uL (130-400); WHITE BLOOD COUNT 7.7 10^3/uL (4.3-11.0)
[2023-07-21 05:01] LABS: ALBUMIN 2.7 GM/DL (3.2-4.5); BILIRUBIN,TOTAL 0.3 MG/DL (0.1-1.0); CALCIUM 8.4 MG/DL (8.5-10.1); CREATININE SERUM 0.63 MG/DL (0.60-1.30); MAGNESIUM 1.9 MG/DL (1.6-2.4); POTASSIUM 3.5 MMOL/L (3.6-5.0); TOTAL PROTEIN 5.6 GM/DL (6.4-8.2)
--- NOTE | 2023-07-21 08:10 | Progress Note - Surgery ---
JENNA GARRETT 07/21/23 0810: Subjective Date Seen by a Provider: Jul 21, 2023 Time Seen by a Provider: 07:58 Subjective/Events-last exam Pt with no new complaints. Abd pain diffusely. Abd pain worse when trying to defecate and urinate. Trouble starting urination but pain goes away once able to urinate. Described as pressure and bloating. Abd is distended today. Has not passed gas or had BM. Able to ambulate but with abd pain. Normoactive bowel sounds. Abd is dull and tympanic to percussion. Denies fever, shortness of breath, chest pain. Update: pt had BM around 929, diarrhea Review of Systems General: No Chills, No Night Sweats HEENT: No Head Aches, No Visual Changes Pulmonary: No Dyspnea, No Cough Cardiovascular: No: Chest Pain, Palpitations Gastrointestinal: Abdominal Pain (diffuse crampy pain); No: Nausea, Vomiting Genitourinary: No Dysuria, No Frequency Musculoskeletal: No: shoulder pain, back pain Neurological: No: Weakness, Numbness Focused Exam Lactate Level 07/19/23 02:55: Lactic Acid Level 0.79 Time of Focused Exam: 0430 Objective Exam Vital Signs Date Time Temp Pulse Resp B/P (MAP) Pulse Ox O2 Delivery O2 Flow Rate FiO2 07/21/23 03:20 36.4 103 18 128/75 (92) 98 Room Air 07/20/23 23:01 36.7 103 18 130/81 (97) 98 Room Air 07/20/23 20:36 Room Air 07/20/23 19:45 37.1 106 18 135/75 (95) 95 Room Air 07/20/23 16:04 36.6 100 16 145/79 (101) 95 Room Air 07/20/23 11:24 36.4 108 16 130/84 (99) 98 Room Air 07/20/23 08:00 Room Air I & O 07/21/23 07:00 Intake Total 1462 ml Balance 1462 ml Capillary Refill : Less Than 3 Seconds General Appearance: No Apparent Distress, WD/WN, Obese HEENT: PERRL/EOMI Neck: Non Tender, Supple Respiratory: No Accessory Muscle Use, No Respiratory Distress, Wheezing (expiratory, pt is has 10 pack year history) Cardiovascular: No Murmur, Tachycardia (103 last HR, been in 100's regularly since yesterday afternoon.) Gastrointestinal: soft, distended, tenderness (diffuse) Extremity: Non Tender, No Calf Tenderness, Other Neurologic/Psychiatric: Alert, Oriented x3 Skin: Normal Color, Warm/Dry Lymphatic: No Adenopathy (post auricular, submandibular, submental) Results Lab Laboratory Tests 07/21/23 04:30: White Blood Count 7.7, Red Blood Count 3.29L, Hemoglobin 11.4L, Hematocrit 33L, Mean Corpuscular Volume 101H, Mean Corpuscular Hemoglobin 35H, Mean Corpuscular Hemoglobin Concent 34, Red Cell Distribution Width 12.4, Platelet Count 148, Mean Platelet Volume 11.5, Immature Granulocyte % (Auto) 2, Neutrophils (%) (Auto) 81H, Lymphocytes (%) (Auto) 11L, Monocytes (%) (Auto) 6, Eosinophils (%) (Auto) 1, Basophils (%) (Auto) 0, Neutrophils # (Auto) 6.2, Lymphocytes # (Auto) 0.8L, Monocytes # (Auto) 0.5, Eosinophils # (Auto) 0.1, Basophils # (Auto) 0.0, Immature Granulocyte # (Auto) 0.1, Sodium Level 138, Potassium Level 3.5L, Chlor chapo Level 105, Carbon Dioxide Level 24, Anion Gap 9, Blood Urea Nitrogen 6L, Creatinine 0.63, Estimat Glomerular Filtration Rate 112, BUN/Creatinine Ratio 10, Glucose Level 99, Calcium Level 8.4L, Corrected Calcium 9.4, Magnesium Level 1.9, Total Bilirubin 0.3, Aspartate Amino Transf (AST/SGOT) 22, Alanine Aminotransferase (ALT/SGPT) 19, Alkaline Phosphatase 60, Total Protein 5.6L, Albumin 2.7L Microbiology 07/15/23 MRSA Screen - Final, Complete MRSA not isolated 07/15/23 Blood Culture - Final, Complete Assessment/Plan Assessment/Plan Assessment/Plan Perforated diverticulitis Substance abuse: Tobacco Tachycardia Fever - resolved as of 07/18/23 Pt same as yesterday. Had BM. Continue to clears. If less pain, less distention tomorrow, advance diet to regular. If pain worsens start NPO for bowel rest. Continue Zosyn, IV fluids. Continue conservative measures, but if exam changes may need surgical intervention. WBC now 7.7 from 7.7 yesterday. Repeat labs in AM GI prophylaxis Ambulate tid and use IS Monitor for urine retention Patient education on high fiber diet at home Colonoscopy in 6-8 wks MASOODLENAJOE Jose DO 07/21/23 1405: Subjective Time Seen by a Provider: 10:57 Subjective/Events-last exam Pt seen and examined, she is lying down in bed. States she had pain and cramping in lower abdomen; but it got better after her BM. Pain isn't worse, but it's also not better. Tolerating liquids, but doesn't feel like she can eat more. Review of Systems Pulmonary: No Dyspnea, No Cough Cardiovascular: No: Chest Pain, Palpitations Gastrointestinal: Abdominal Pain (diffuse crampy pain); No: Nausea, Vomiting Objective Exam General Appearance: No Apparent Distress, Obese (morbidly) HEENT: PERRL/EOMI Respiratory: No Accessory Muscle Use, No Respiratory Distress, Wheezing (expiratory, pt is has 10 pack year history) Cardiovascular: No Murmur, Tachycardia (103 last HR, been in 100's regularly since yesterday afternoon.) Gastrointestinal: soft, distended, tenderness (mostly lower quadrants, but a little epigastric), hernia (umbilical) Extremity: Non Tender, No Calf Tenderness Neurologic/Psychiatric: Alert, Oriented x3 Assessment/Plan Assessment/Plan Assessment/Plan Perforated diverticulitis Substance abuse: Tobacco Tachycardia Fever - resolved as of 07/18/23 Pt same as yesterday. Had BM. Continue to clears. If less pain, less distention tomorrow, advance diet to regular. If pain worsens start NPO for bowel rest. Start oral ABX, IV fluids. Continue conservative measures, but if exam changes may need surgical intervention. WBC now 7.7 from 7.7 yesterday. Repeat labs in AM GI prophylaxis Ambulate tid and use IS Monitor for urine retention Patient education on high fiber diet at home Colonoscopy in 6-8 wks Supervisory-Addendum Brief Verification & Attestation Participated in pt care: history, MDM, physical Personally performed: exam, history, MDM, supervision of care Care discussed with: Medical Student Procedures: n/a Verification and Attestation of Medical Student E/M Service A medical student performed and documented this service. I then reviewed and verified all information documented by the medical student and made modifications to such information, when appropriate. I personally performed a physical exam, medical decision making and then discussed any differences between the notes and made revisions as necessary to create one note. Joe Gallegos , 07/21/23 , 14:04 JENNA GARRETT Jul 21, 2023 08:10 JOE GALLEGOS DO Jul 21, 2023 14:05
[2023-07-21] MEDS: PANTOPRAZOLE INJECTION 40 MG VIAL IV SCH (08:29)
[2023-07-21] MEDS: HYDROcodone/ACETAMINOPHEN 5 MG/325 MG TABLET PO PRN ×2 (08:42→20:45)
[2023-07-21] MEDS: ENOXAPARIN 40 MG/0.4 ML SYRINGE SC SCH (13:55)
[2023-07-21] MEDS: AMOXICILLIN/Clavulanate 875 MG TABLET PO SCH (18:42)
[2023-07-22] MEDS: LACTATED RINGERS 1,000 ML 1,000 ML IV SCH ×4 (01:24→19:43)
[2023-07-22 04:00] VITALS: BP 134/89
[2023-07-22 06:02] LABS: BASOPHILS % (AUTO) 0 % (0-10); EOSINOPHILS # (AUTO) 0.1 10^3/uL (0.0-0.3); EOSINOPHILS % (AUTO) 2 % (0-10); HEMATOCRIT 35 % (35-52); HEMOGLOBIN 11.6 g/dL (11.5-16.0); LYMPHOCYTES # (AUTO) 0.8 10^3/uL (1.0-4.0); LYMPHOCYTES % (AUTO) 14 % (12-44); MEAN CORPUSCULAR HEMOGLOBIN 34 pg (25-34); MEAN CORPUSCULAR HGB CONC 34 g/dL (32-36); MEAN CORPUSCULAR VOLUME 102 fL (80-99); MEAN PLATELET VOLUME 10.8 fL (9.0-12.2); MONOCYTES # (AUTO) 0.4 10^3/uL (0.0-1.0); MONOCYTES % (AUTO) 7 % (0-12); NEUTROPHILS # (AUTO) 4.5 10^3/uL (1.8-7.8); NEUTROPHILS % (AUTO) 75 % (42-75); PLATELET COUNT 161 10^3/uL (130-400); WHITE BLOOD COUNT 6.1 10^3/uL (4.3-11.0)
[2023-07-22 06:10] LABS: SMEAR SCAN COMMENT YES
[2023-07-22 06:20] LABS: ALBUMIN 2.7 GM/DL (3.2-4.5); POTASSIUM 3.3 MMOL/L (3.6-5.0)
[2023-07-22 06:21] LABS: CALCIUM 8.6 MG/DL (8.5-10.1)
[2023-07-22 06:22] LABS: TOTAL PROTEIN 5.9 GM/DL (6.4-8.2)
[2023-07-22 06:24] LABS: BILIRUBIN,TOTAL 0.3 MG/DL (0.1-1.0)
[2023-07-22 06:26] LABS: CREATININE SERUM 0.69 MG/DL (0.60-1.30)
[2023-07-22 06:29] LABS: MAGNESIUM 1.9 MG/DL (1.6-2.4)
[2023-07-22] MEDS: AMOXICILLIN/Clavulanate 875 MG TABLET PO SCH ×2 (08:25→17:43)
[2023-07-22] MEDS: PANTOPRAZOLE INJECTION 40 MG VIAL IV SCH (08:26)
[2023-07-22 08:40] VITALS: BP 146/87
--- NOTE | 2023-07-22 08:54 | Progress Note - Surgery ---
JENNA GARRETT 07/22/23 0854: Subjective Date Seen by a Provider: Jul 22, 2023 Time Seen by a Provider: 08:48 Subjective/Events-last exam Pt no change today. Still with diffuse abd tenderness and pain described as pressure. Worse when she goes to the bathroom to have a BM. Pt had 2 BMs since last seen with bright red blood on the toilet paper after wiping and some blood in bowl. Pt states she has hemorrhoids as well. Pt and significant other say they are walking at least 3 times per day. No fever, nausea, vomiting, shortness of breath, chest pain. Review of Systems General: No Chills, No Night Sweats HEENT: No Head Aches, No Visual Changes Pulmonary: No Dyspnea, No Cough Cardiovascular: No: Chest Pain, Palpitations Gastrointestinal: Abdominal Pain (diffuse to palpation); No: Nausea, Vomiting Genitourinary: No Dysuria, No Frequency Musculoskeletal: No: shoulder pain, arm pain Neurological: No: Weakness, Numbness Focused Exam Time of Focused Exam: 0430 Objective Exam Vital Signs Date Time Temp Pulse Resp B/P (MAP) Pulse Ox O2 Delivery O2 Flow Rate FiO2 07/22/23 08:40 36.3 90 18 146/87 (106) 94 Room Air 07/22/23 04:00 36.3 102 20 134/89 (104) 96 Room Air 07/21/23 23:41 35.9 102 20 135/85 (102) 95 Room Air 07/21/23 21:09 152/100 (117) 07/21/23 20:15 Room Air 07/21/23 19:34 36.7 88 18 166/102 (123) 94 Room Air 07/21/23 16:00 37.0 94 17 120/72 (88) 96 Room Air 07/21/23 12:29 37.2 98 19 113/75 (88) 93 Room Air I & O 07/22/23 07:00 Intake Total 3755 ml Balance 3755 ml Capillary Refill : Less Than 3 Seconds General Appearance: No Apparent Distress, Obese (morbidly) HEENT: PERRL/EOMI Neck: Non Tender, Supple Respiratory: No Accessory Muscle Use, No Respiratory Distress, Wheezing (expiratory, pt is has 10 pack year history) Cardiovascular: No Murmur, Tachycardia (102 at 4am) Gastrointestinal: soft, distended, tenderness (mostly lower quadrants, but a little epigastric) Extremity: Non Tender, No Calf Tenderness Neurologic/Psychiatric: Alert, Oriented x3 Skin: Normal Color, Warm/Dry Lymphatic: No Adenopathy (post auricular, submandibular, submental) Results Lab Laboratory Tests 07/22/23 05:50: White Blood Count 6.1, Red Blood Count 3.41L, Hemoglobin 11.6, Hematocrit 35, Mean Corpuscular Volume 102H, Mean Corpuscular Hemoglobin 34, Mean Corpuscular Hemoglobin Concent 34, Red Cell Distribution Width 12.4, Platelet Count 161, Mean Platelet Volume 10.8, Immature Granulocyte % (Auto) 2, Neutrophils (%) (Auto) 75, Lymphocytes (%) (Auto) 14, Monocytes (%) (Auto) 7, Eosinophils (%) (Auto) 2, Basophils (%) (Auto) 0, Neutrophils # (Auto) 4.5, Lymphocytes # (Auto) 0.8L, Monocytes # (Auto) 0.4, Eosinophils # (Auto) 0.1, Basophils # (Auto) 0.0, Immature Granulocyte # (Auto) 0.1, Sodium Level 140, Potassium Level 3.3L, Chloride Level 104, Carbon Dioxide Level 25, Anion Gap 11, Blood Urea Nitrogen 6L, Creatinine 0.69, Estimat Glomerular Filtration Rate 110, BUN/Creatinine Rat io 9, Glucose Level 95, Calcium Level 8.6, Corrected Calcium 9.6, Magnesium Level 1.9, Total Bilirubin 0.3, Aspartate Amino Transf (AST/SGOT) 36H, Alanine Aminotransferase (ALT/SGPT) 28, Alkaline Phosphatase 53, Total Protein 5.9L, Albumin 2.7L, Smear Scan YES Microbiology 07/15/23 MRSA Screen - Final, Complete MRSA not isolated 07/15/23 Blood Culture - Final, Complete Assessment/Plan Assessment/Plan Assessment/Plan Perforated diverticulitis, complicated Substance abuse: Tobacco Tachycardia Fever - resolved as of 07/18/23 Pt same as yesterday. Had 2 BMs. Advance to high fiber diet. If pain worsens start NPO for bowel rest. Start oral ABX, IV fluids. Continue conservative measures, but if exam changes may need surgical intervention. WBC now 6.1 from 7.7 yesterday. Hydrocortisone cream and sitz baths for hemorrhoids. Repeat labs in AM GI prophylaxis Ambulate tid and use IS Monitor for urine retention Patient education on high fiber diet at home Colonoscopy in 6-8 wks HARRISON GALLEGOS DO 07/22/23 1420: Subjective Time Seen by a Provider: 13:58 Subjective/Events-last exam Pt seen and examined, states she feels run down and tired. She still has abdominal pain. Nurse states she tried to eat the increased diet and immediately threw everything up. She is still urinating and having small BMs. Review of Systems General: No Chills, No Night Sweats; Fatigue, Malaise Pulmonary: No Dyspnea, No Cough Cardiovascular: No: Chest Pain, Palpitations Gastrointestinal: Vomiting, Abdominal Pain (diffuse to palpation); No: Nausea Genitourinary: No Dysuria, No Frequency Objective Exam General Appearance: No Apparent Distress, Obese (morbidly) HEENT: PERRL/EOMI Neck: Non Tender, Supple Respiratory: No Accessory Muscle Use, No Respiratory Distress, Wheezing (expiratory, pt is has 10 pack year history) Cardiovascular: No Murmur, Tachycardia (102 at 4am) Gastrointestinal: soft, distended, tenderness (mostly lower quadrants, but a little epigastric) Extremity: Non Tender, No Calf Tenderness Neurologic/Psychiatric: Alert, Oriented x3 Skin: Normal Color, Warm/Dry Assessment/Plan Assessment/Plan Assessment/Plan Perforated diverticulitis, complicated Substance abuse: Tobacco Tachycardia Fever - resolved as of 07/18/23 Pt same as yesterday, maybe a little worse; definitely not better. Had 2 BMs. Attempt to advance diet was unsuccessful. Will go back to clears and if pain worsens start NPO for bowel rest. Pt is on oral ABX, IV fluids. Continue conservative measures, but if exam changes may need surgical intervention. WBC now 6.1 from 7.7 yesterday. Repeat labs in AM, GI prophylaxis, pt encouraged to Ambulate more and use IS. I had discussion with pt that she needs to start thinking about possibly doing diagnostic laparoscopy. Nothing indicates it needs to be done soon, but she is not really improving and maybe she will need surgery to get better faster; even if that means a temporary colostomy. She will be made NPO after midnight for just in case and I told her to really think about what she wants to do. I also said it still is not a bad choice to hold off on surgery. Supervisory-Addendum Brief Verification & Attestation Participated in pt care: history, MDM, physical Personally performed: exam, history, MDM, supervision of care Care discussed with: Medical Student Procedures: n/a Verification and Attestation of Medical Student E/M Service A medical student performed and documented this service. I then reviewed and verified all information documented by the medical student and made modifications to such information, when appropriate. I personally performed a physical exam, medical decision making and then discussed any differences between the notes and made revisions as necessary to create one note. Harrison Gallegos , 07/22/23 , 14:21 JENNA GARRETT Jul 22, 2023 08:54 HARRISON GALLEGOS DO Jul 22, 2023 14:20
[2023-07-22] MEDS: ONDANSETRON INJECTION 4 MG/2 ML (SDV) IV PRN (12:18)
[2023-07-22 12:31] VITALS: BP 165/108
[2023-07-22] MEDS: ENOXAPARIN 40 MG/0.4 ML SYRINGE SC SCH (14:08)
[2023-07-22 16:16] VITALS: BP 160/95
[2023-07-22 19:47] VITALS: BP 154/89
[2023-07-22 23:49] VITALS: BP 168/96
[2023-07-23] MEDS: fentaNYL INJECTION 100 MCG/2 ML VIAL IV PRN (00:45)
[2023-07-23] MEDS: LACTATED RINGERS 1,000 ML 1,000 ML IV SCH ×4 (01:08→21:39)
[2023-07-23] MEDS: ONDANSETRON INJECTION 4 MG/2 ML (SDV) IV PRN (03:46)
[2023-07-23 03:52] VITALS: BP 164/98
[2023-07-23 05:50] LABS: BASOPHILS % (AUTO) 1 % (0-10); EOSINOPHILS # (AUTO) 0.1 10^3/uL (0.0-0.3); EOSINOPHILS % (AUTO) 1 % (0-10); HEMATOCRIT 34 % (35-52); HEMOGLOBIN 11.5 g/dL (11.5-16.0); LYMPHOCYTES # (AUTO) 0.8 10^3/uL (1.0-4.0); LYMPHOCYTES % (AUTO) 11 % (12-44); MEAN CORPUSCULAR HEMOGLOBIN 34 pg (25-34); MEAN CORPUSCULAR HGB CONC 34 g/dL (32-36); MEAN CORPUSCULAR VOLUME 99 fL (80-99); MEAN PLATELET VOLUME 10.9 fL (9.0-12.2); MONOCYTES # (AUTO) 0.5 10^3/uL (0.0-1.0); MONOCYTES % (AUTO) 7 % (0-12); NEUTROPHILS # (AUTO) 5.3 10^3/uL (1.8-7.8); NEUTROPHILS % (AUTO) 77 % (42-75); PLATELET COUNT 162 10^3/uL (130-400); WHITE BLOOD COUNT 6.9 10^3/uL (4.3-11.0)
[2023-07-23 06:03] LABS: ALBUMIN 2.7 GM/DL (3.2-4.5)
[2023-07-23 06:04] LABS: POTASSIUM 3.1 MMOL/L (3.6-5.0)
[2023-07-23 06:05] LABS: CALCIUM 8.5 MG/DL (8.5-10.1)
[2023-07-23 06:06] LABS: TOTAL PROTEIN 5.9 GM/DL (6.4-8.2)
[2023-07-23 06:07] LABS: SMEAR SCAN COMMENT YES
[2023-07-23 06:08] LABS: BILIRUBIN,TOTAL 0.3 MG/DL (0.1-1.0)
[2023-07-23 06:10] LABS: CREATININE SERUM 0.63 MG/DL (0.60-1.30)
[2023-07-23 06:12] LABS: MAGNESIUM 1.8 MG/DL (1.6-2.4)
[2023-07-23 08:45] VITALS: BP 135/79
[2023-07-23] MEDS: PANTOPRAZOLE INJECTION 40 MG VIAL IV SCH (09:13)
[2023-07-23] MEDS: AMOXICILLIN/Clavulanate 875 MG TABLET PO SCH ×3 (09:13→17:55)
[2023-07-23] MEDS: ENOXAPARIN 40 MG/0.4 ML SYRINGE SC SCH ×2 (09:14→19:58)
--- NOTE | 2023-07-23 10:43 | Progress Note - Surgery ---
TERRY LONGORIA 07/23/23 1043: Subjective Date Seen by a Provider: Jul 23, 2023 Time Seen by a Provider: 10:37 Subjective/Events-last exam Pt reports not being as tired as she was yesterday. Pt reports having no nausea but gagging a little and vomiting less than a cup of non-bloody substance in the middle of the night. Pt has had a BM since yesterday, without melena or hematochezia. Pt has been NPO since midnight. Pt went for a walk this morning and is currently sitting in the chair to the side of her bed. Pt does not know if she is more or less distended than yesterday but reports very minimal abd pain in the LLQ and RLQ while sitting. Review of Systems General: No Chills, No Night Sweats HEENT: No Head Aches, No Visual Changes Pulmonary: No Dyspnea, No Cough Cardiovascular: No: Chest Pain, Palpitations Gastrointestinal: Vomiting (pt reports sitting up and gagging a little unprovoked last night and vomiting less than a cup of non-bloody substance), Abdominal Pain (minimal in LLQ and RLQ only while resting in chair); No: Nausea Genitourinary: Dysuria (initiating hurts due to "pressure" but then the pain subsides); No Hematuria Neurological: Weakness (from being sedentary while here); No: Numbness Focused Exam Time of Focused Exam: 0430 Objective Exam Vital Signs Date Time Temp Pulse Resp B/P (MAP) Pulse Ox O2 Delivery O2 Flow Rate FiO2 07/23/23 08:45 36.6 98 19 135/79 (97) 95 Room Air 07/23/23 03:52 36.6 101 18 164/98 (120) 94 07/22/23 23:49 36.7 95 18 168/96 (120) 95 Room Air 07/22/23 19:47 36.0 75 18 154/89 (110) 95 Room Air 07/22/23 19:40 Room Air 07/22/23 16:16 36.0 81 16 160/95 (116) 97 Room Air 07/22/23 12:31 36.5 99 24 165/108 (127) 96 Room Air I & O 07/23/23 07:00 Intake Total 1320 ml Balance 1320 ml Capillary Refill : Less Than 3 Seconds General Appearance: No Apparent Distress, Obese (morbidly) Neck: Non Tender; No JVD Respiratory: Lungs Clear, Normal Breath Sounds, No Accessory Muscle Use, No Respiratory Distress Cardiovascular: No Murmur, Tachycardia (HR 98) Peripheral Pulses: 2+ Carotid (R), 2+ Carotid (L), 2+ Dorsalis Pedis (R), 2+ Left Dors-Pedis (L), 2+ Radial Pulses (R), 2+ Radial Pulses (L) Gastrointestinal: soft, distended (appears same as yesterday to me), tenderness (RLQ and LLQ to deep palpation only, epigastric to light and deep palpation, none in LUQ or RUQ) Neurologic/Psychiatric: Alert, Oriented x3 Skin: Normal Color, Warm/Dry Results Lab Laboratory Tests 07/23/23 05:41: White Blood Count 6.9, Red Blood Count 3.41L, Hemoglobin 11.5, Hematocrit 34L, Mean Corpuscular Volume 99, Mean Corpuscular Hemoglobin 34, Mean Corpuscular Hemoglobin Concent 34, Red Cell Distribution Width 12.2, Platelet Count 162, Mean Platelet Volume 10.9, Immature Granulocyte % (Auto) 3, Neutrophils (%) (Auto) 77H, Lymphocytes (%) (Auto) 11L, Monocytes (%) (Auto) 7, Eosinophils (%) (Auto) 1, Basophils (%) (Auto) 1, Neutrophils # (Auto) 5.3, Lymphocytes # (Auto) 0.8L, Monocytes # (Auto) 0.5, Eosinophils # (Auto) 0.1, Basophils # (Auto) 0.0, Immature Granulocyte # (Auto) 0.2H, Sodium Level 139, Potassium Level 3.1L, Chloride Level 104, Carbon Dioxide Level 21, Anion Gap 14, Blood Urea Nitrogen 6L, Creatinine 0.63, Estimat Glomerular Filtration Rate 112, BUN/Creatinine Ratio 10, Glucose Level 100, Calcium Level 8.5, Corrected Calcium 9.5, Magnesium Level 1.8, Total Bilirubin 0.3, Aspartate Amino Transf (AST/SGOT) 35H, Alanine Aminotransferase (ALT/SGPT) 28, Alkaline Phosphatase 49, Total Protein 5.9L, Albumin 2.7L, Smear Scan YES Microbiology 07/15/23 MRSA Screen - Final, Complete MRSA not isolated 07/15/23 Blood Culture - Final, Complete Assessment/Plan Assessment/Plan Assessment/Plan Perforated diverticulitis, complicated Substance abuse: Tobacco Tachycardia - HR 98 Fever - resolved as of 07/18/23 Pt is roughly doing the same as yesterday. Had 3 BMs since yesterday and one episode of non-bloody vomiting in the middle of the night. Pt has been NPO for bowel rest in case she desires a procedure today. Pt is on oral ABX, IV fluids. The pt will be talked to about how she feels about having surgery today vs. continuing conservative measures. WBC now 6.9 from 6.1 yesterday and 7.7 the day before. Pt encouraged to Ambulate more and use IS. HARRISON GALLEGOS DO 07/23/23 1217: Subjective Time Seen by a Provider: 10:54 Subjective/Events-last exam Pt seen and examined, sitting up in chair. Apparently pt was a little confused by the plan yesterday, nurse had to talk to pt for 45 minutes. She is hungry and wants to eat. Still has abdominal pain, but thinks she is not as tired as yesterday. She is still having BMs. Review of Systems General: No Chills, No Night Sweats Pulmonary: No Dyspnea, No Cough Cardiovascular: No: Chest Pain, Palpitations Gastrointestinal: Vomiting (pt reports sitting up and gagging a little unprovoked last night and vomiting less than a cup of non-bloody substance), Abdominal Pain (minimal in LLQ and RLQ only while resting in chair); No: Nausea Genitourinary: No Dysuria (initiating hurts due to "pressure" but then the pain subsides) Neurological: Weakness (from being sedentary while here) Objective Exam General Appearance: No Apparent Distress, Obese (morbidly) HEENT: PERRL/EOMI Respiratory: Lungs Clear, Normal Breath Sounds, No Accessory Muscle Use, No Respiratory Distress Cardiovascular: Regular Rate, Rhythm, No Murmur Gastrointestinal: soft, distended (appears same as yesterday to me), tenderness (RLQ and LLQ to deep palpation only, epigastric to light and deep palpation, none in LUQ or RUQ) Neurologic/Psychiatric: Alert, Oriented x3 Assessment/Plan Assessment/Plan Assessment/Plan Perforated diverticulitis, complicated Substance abuse: Tobacco Tachycardia - HR 98 Fever - resolved as of 07/18/23 Pt is roughly doing the same as yesterday. Had 3 BMs since yesterday and one episode of non-bloody vomiting in the middle of the night. Pt has been NPO for bowel rest in case she desires a procedure today. Pt is on oral ABX, IV fluids. The pt will be talked to about how she feels about having surgery today vs. continuing conservative measures. WBC now 6.9 from 6.1 yesterday and 7.7 the day before. Pt encouraged to Ambulate more and use IS. I spent 30 minutes talking to pt about; what we talked about yesterday, her options 1)surgery and likely temporary colostomy 2) continuing the conservative treatment. I explained to her that she is not improving like I would hope, but that she is not getting worse and does not show any signs of getting worse (thereby forcing us to go to surgery). We talked about the fact that she may get tired of waiting and decide on surgery. We also discussed possible CT tomorrow to determine if abscess and perforation has improved or worsened. She wants to wait a little longer. Will start her back on clears. Supervisory-Addendum Brief Verification & Attestation Participated in pt care: history, MDM, physical Personally performed: exam, history, MDM, supervision of care Care discussed with: Medical Student Procedures: n/a Verification and Attestation of Medical Student E/M Service A medical student performed and documented this service. I then reviewed and verified all information documented by the medical student and made candy fications to such information, when appropriate. I personally performed a physical exam, medical decision making and then discussed any differences between the notes and made revisions as necessary to create one note. Harrison Gallegos , 07/23/23 , 12:17 TERRY LONGORIA Jul 23, 2023 10:43 HARRISON GALLEGOS DO Jul 23, 2023 12:17
[2023-07-23 12:41] VITALS: BP 146/77
[2023-07-23 16:00] VITALS: BP 147/79
[2023-07-23 20:19] VITALS: BP 167/93
[2023-07-23 23:07] VITALS: BP 152/83
[2023-07-23] MEDS: HYDROcodone/ACETAMINOPHEN 5 MG/325 MG TABLET PO PRN (23:46)
[2023-07-24 03:32] VITALS: BP 144/85
[2023-07-24] MEDS: LACTATED RINGERS 1,000 ML 1,000 ML IV SCH ×3 (05:07→17:36)
[2023-07-24 06:01] LABS: BASOPHILS % (AUTO) 1 % (0-10); EOSINOPHILS # (AUTO) 0.1 10^3/uL (0.0-0.3); EOSINOPHILS % (AUTO) 2 % (0-10); HEMATOCRIT 33 % (35-52); HEMOGLOBIN 11.5 g/dL (11.5-16.0); LYMPHOCYTES # (AUTO) 1.1 10^3/uL (1.0-4.0); LYMPHOCYTES % (AUTO) 18 % (12-44); MEAN CORPUSCULAR HEMOGLOBIN 35 pg (25-34); MEAN CORPUSCULAR HGB CONC 35 g/dL (32-36); MEAN CORPUSCULAR VOLUME 99 fL (80-99); MEAN PLATELET VOLUME 11.2 fL (9.0-12.2); MONOCYTES # (AUTO) 0.4 10^3/uL (0.0-1.0); MONOCYTES % (AUTO) 7 % (0-12); NEUTROPHILS # (AUTO) 4.1 10^3/uL (1.8-7.8); NEUTROPHILS % (AUTO) 68 % (42-75); PLATELET COUNT 178 10^3/uL (130-400)
[2023-07-24 06:12] LABS: ALBUMIN 2.7 GM/DL (3.2-4.5); POTASSIUM 3.3 MMOL/L (3.6-5.0)
[2023-07-24 06:13] LABS: CALCIUM 8.4 MG/DL (8.5-10.1)
[2023-07-24 06:14] LABS: TOTAL PROTEIN 5.8 GM/DL (6.4-8.2)
[2023-07-24 06:16] LABS: BILIRUBIN,TOTAL 0.3 MG/DL (0.1-1.0)
[2023-07-24 06:18] LABS: CREATININE SERUM 0.61 MG/DL (0.60-1.30)
[2023-07-24 06:21] LABS: MAGNESIUM 1.9 MG/DL (1.6-2.4)
[2023-07-24] MEDS: ENOXAPARIN 40 MG/0.4 ML SYRINGE SC SCH ×2 (08:29→20:07)
[2023-07-24] MEDS: AMOXICILLIN/Clavulanate 875 MG TABLET PO SCH ×2 (08:29→17:35)
[2023-07-24] MEDS: PANTOPRAZOLE INJECTION 40 MG VIAL IV SCH (08:29)
[2023-07-24 08:54] VITALS: BP 154/84
[2023-07-24] MEDS: ONDANSETRON INJECTION 4 MG/2 ML (SDV) IV PRN (10:18)
[2023-07-24 12:41] VITALS: BP 141/86
--- NOTE | 2023-07-24 14:39 | Progress Note - Surgery ---
Subjective Time Seen by a Provider: 12:46 Subjective/Events-last exam Pt seen and examined, sitting on side of bed. She states abdominal pain is better and she only gets "cramps" when she goes for walks. She did have a BM, but also had an episode of emesis. However, pt wants to try some mashed potatoes...."can't stand the liquids". Nurse also states she had a bloody nose; "that wouldn't stop for 20 minutes". Review of Systems General: No Chills, No Night Sweats HEENT: Other (bloody nose) Pulmonary: No Dyspnea, No Cough Cardiovascular: No: Chest Pain, Palpitations Gastrointestinal: Vomiting, Abdominal Pain; No: Nausea Genitourinary: No Dysuria, No Frequency Focused Exam Time of Focused Exam: 429 Objective Exam Vital Signs Date Time Temp Pulse Resp B/P (MAP) Pulse Ox O2 Delivery O2 Flow Rate FiO2 07/24/23 12:41 36.9 77 16 141/86 (104) 96 Room Air 07/24/23 08:54 37.1 63 18 154/84 (107) 97 NIV Bilevel 07/24/23 08:00 95 Room Air 07/24/23 03:32 36.0 60 18 144/85 (104) 95 Room Air 07/23/23 23:07 37.0 96 18 152/83 (106) 95 Room Air 07/23/23 20:19 37.1 70 18 167/93 (117) 95 Room Air 07/23/23 20:00 Room Air 07/23/23 16:00 37.2 54 18 147/79 (101) 94 Room Air I & O 07/24/23 06:59 Intake Total 2320 ml Balance 2320 ml Capillary Refill : Less Than 3 Seconds General Appearance: No Apparent Distress, Obese (morbidly) HEENT: PERRL/EOMI Respiratory: Lungs Clear, Normal Breath Sounds, No Accessory Muscle Use, No Respiratory Distress Cardiovascular: Regular Rate, Rhythm, No Murmur Peripheral Pulses: 2+ Carotid (R), 2+ Carotid (L), 2+ Dorsalis Pedis (R), 2+ Left Dors-Pedis (L), 2+ Radial Pulses (R), 2+ Radial Pulses (L) Gastrointestinal: soft, distended (appears same, may just be body habitus), tenderness (RLQ and LLQ to deep palpation only, epigastric to light and deep palpation, none in LUQ or RUQ) Neurologic/Psychiatric: Alert, Oriented x3 Skin: Normal Color, Warm/Dry Results Lab Laboratory Tests 07/24/23 05:47: White Blood Count 6.0, Red Blood Count 3.29L, Hemoglobin 11.5, Hematocrit 33L, Mean Corpuscular Volume 99, Mean Corpuscular Hemoglobin 35H, Mean Corpuscular Hemoglobin Concent 35, Red Cell Distribution Width 12.3, Platelet Count 178, M christian Platelet Volume 11.2, Immature Granulocyte % (Auto) 4, Neutrophils (%) (Auto) 68, Lymphocytes (%) (Auto) 18, Monocytes (%) (Auto) 7, Eosinophils (%) (Auto) 2, Basophils (%) (Auto) 1, Neutrophils # (Auto) 4.1, Lymphocytes # (Auto) 1.1, Monocytes # (Auto) 0.4, Eosinophils # (Auto) 0.1, Basophils # (Auto) 0.0, Immature Granulocyte # (Auto) 0.3H, Sodium Level 138, Potassium Level 3.3L, Chloride Level 104, Carbon Dioxide Level 23, Anion Gap 11, Blood Urea Nitrogen 6L, Creatinine 0.61, Estimat Glomerular Filtration Rate 113, BUN/Creatinine Ratio 10, Glucose Level 86, Calcium Level 8.4L, Corrected Calcium 9.4, Magnesium Level 1.9, Total Bilirubin 0.3, Aspartate Amino Transf (AST/SGOT) 41H, Alanine Aminotransferase (ALT/SGPT) 33, Alkaline Phosphatase 51, Total Protein 5.8L, Albumin 2.7L Microbiology 07/15/23 MRSA Screen - Final, Complete MRSA not isolated 07/15/23 Blood Culture - Final, Complete Assessment/Plan Assessment/Plan Assessment/Plan Perforated diverticulitis, complicated Epistaxis Substance abuse: Tobacco Tachycardia - HR 98 Fever - resolved as of 07/18/23 Plan is to try some mashed potatoes and order CT Abd/Pelvis for tomorrow morning. Pt encouraged to ambulate and use IS. Will continue oral ABX, pain meds and anti-emetics as needed. Will monitor her nose, probably a combination of dry nasal passages and her Lovenox. JOE BELLAMY DO Jul 24, 2023 14:39
[2023-07-24 15:54] VITALS: BP 160/89
[2023-07-24 19:56] VITALS: BP 164/90
[2023-07-25] VITALS (14 sets, daily range): BP systolic 113–168; BP diastolic 65–99
[2023-07-25] MEDS: LACTATED RINGERS 1,000 ML 1,000 ML IV SCH ×5 (00:17→22:25)
[2023-07-25 05:59] LABS: BASOPHILS % (AUTO) 1 % (0-10); EOSINOPHILS # (AUTO) 0.1 10^3/uL (0.0-0.3); EOSINOPHILS % (AUTO) 1 % (0-10); HEMATOCRIT 35 % (35-52); HEMOGLOBIN 12.1 g/dL (11.5-16.0); LYMPHOCYTES # (AUTO) 1.1 10^3/uL (1.0-4.0); LYMPHOCYTES % (AUTO) 20 % (12-44); MEAN CORPUSCULAR HEMOGLOBIN 34 pg (25-34); MEAN CORPUSCULAR HGB CONC 35 g/dL (32-36); MEAN CORPUSCULAR VOLUME 98 fL (80-99); MEAN PLATELET VOLUME 11.1 fL (9.0-12.2); MONOCYTES # (AUTO) 0.4 10^3/uL (0.0-1.0); MONOCYTES % (AUTO) 7 % (0-12); NEUTROPHILS # (AUTO) 3.6 10^3/uL (1.8-7.8); NEUTROPHILS % (AUTO) 65 % (42-75); PLATELET COUNT 189 10^3/uL (130-400); WHITE BLOOD COUNT 5.6 10^3/uL (4.3-11.0)
[2023-07-25 06:12] LABS: POTASSIUM 3.5 MMOL/L (3.6-5.0)
[2023-07-25 06:13] LABS: CALCIUM 8.6 MG/DL (8.5-10.1)
[2023-07-25 06:14] LABS: TOTAL PROTEIN 6.3 GM/DL (6.4-8.2)
[2023-07-25 06:16] LABS: BILIRUBIN,TOTAL 0.4 MG/DL (0.1-1.0)
[2023-07-25 06:18] LABS: CREATININE SERUM 0.62 MG/DL (0.60-1.30)
[2023-07-25 06:21] LABS: MAGNESIUM 1.9 MG/DL (1.6-2.4)
--- NOTE | 2023-07-25 07:01 | Progress Note - Surgery ---
JENNA GARRETT 07/25/23 0701: Subjective Date Seen by a Provider: Jul 25, 2023 Time Seen by a Provider: 06:48 Subjective/Events-last exam Pt examined resting in bed. States pain has been tolerable all weekend but gets worse in the night. Had a baked potato for dinner and denies nausea or vomiting after. Gets more crampy pain when walking. Having loose, non-bloody stools and passing gas. Abd is soft and tender to deep palpation in both lower quadrants, more in RLQ. Pt didnt know she was placed NPO after midnight so had been having water through the night. Still wanting conservative treatment at this time. No fever, chest pains, shortness of breath. Review of Systems General: No Chills, No Night Sweats HEENT: No Head Aches, No Visual Changes Pulmonary: No Dyspnea, No Cough Cardiovascular: No: Chest Pain, Palpitations Gastrointestinal: Abdominal Pain (to deep palpations in the lower quadrants.); No: Nausea, Vomiting Genitourinary: No Dysuria, No Frequency Musculoskeletal: No: shoulder pain Neurological: No: Weakness, Numbness Focused Exam Time of Focused Exam: 429 Objective Exam Vital Signs Date Time Temp Pulse Resp B/P (MAP) Pulse Ox O2 Delivery O2 Flow Rate FiO2 07/25/23 04:54 36.9 82 18 153/96 (115) 96 Room Air 07/25/23 00:18 37.0 73 18 145/83 (103) 96 Room Air 07/24/23 20:40 97 Room Air 07/24/23 19:56 36.6 74 18 164/90 (114) 97 Room Air 07/24/23 15:54 36.3 63 18 160/89 (112) 97 Room Air 07/24/23 12:41 36.9 77 16 141/86 (104) 96 Room Air 07/24/23 08:54 37.1 63 18 154/84 (107) 97 NIV Bilevel 07/24/23 08:00 95 Room Air I & O 07/25/23 06:59 Intake Total 1260 ml Balance 1260 ml Capillary Refill : Less Than 3 Seconds General Appearance: No Apparent Distress, Obese (morbidly) HEENT: PERRL/EOMI, Pharynx Normal Neck: Full Range of Motion, Normal Inspection Respiratory: Lungs Clear, Normal Breath Sounds, No Accessory Muscle Use, No Respiratory Distress Cardiovascular: Regular Rate, Rhythm, No Murmur Peripheral Pulses: 2+ Carotid (R), 2+ Carotid (L), 2+ Dorsalis Pedis (R), 2+ Left Dors-Pedis (L), 2+ Radial Pulses (R), 2+ Radial Pulses (L) Gastrointestinal: soft, tenderness (RLQ and LLQ to deep palpation only, epigastric to light and deep palpation, none in LUQ or RUQ) Extremity: Normal Range of Motion, No Pedal Edema, Other (bruising on left forearm that pt says is from a blown venipuncture) Neurologic/Psychiatric: Alert, Oriented x3 Skin: Normal Color, Warm/Dry Lymphatic: No Adenopathy (post auricular, submandibular, submental, supraclavicular) Results Lab Laboratory Tests 07/25/23 05:53: White Blood Count 5.6, Red Blood Count 3.53L, Hemoglobin 12.1, Hematocrit 35, Mean Corpuscular Volume 98, Mean Corpuscular Hemoglobin 34, Mean Corpuscular Hemoglobin Concent 35, Red Cell Distribution Width 12.2, Platelet Count 189, Mean Platelet Volume 11.1, Immature Granulocyte % (Auto) 6, Neutrophils (%) (A uto) 65, Lymphocytes (%) (Auto) 20, Monocytes (%) (Auto) 7, Eosinophils (%) (Auto) 1, Basophils (%) (Auto) 1, Neutrophils # (Auto) 3.6, Lymphocytes # (Auto) 1.1, Monocytes # (Auto) 0.4, Eosinophils # (Auto) 0.1, Basophils # (Auto) 0.0, Immature Granulocyte # (Auto) 0.3H, Sodium Level 137, Potassium Level 3.5L, Chloride Level 104, Carbon Dioxide Level 24, Anion Gap 9, Blood Urea Nitrogen 5L , Creatinine 0.62, Estimat Glomerular Filtration Rate 113, BUN/Creatinine Ratio 8, Glucose Level 82, Calcium Level 8.6, Corrected Calcium 9.4, Magnesium Level 1.9, Total Bilirubin 0.4, Aspartate Amino Transf (AST/SGOT) 59H, Alanine Aminotransferase (ALT/SGPT) 48, Alkaline Phosphatase 57, Total Protein 6.3L, Albumin 3.0L Microbiology 07/15/23 MRSA Screen - Final, Complete MRSA not isolated 07/15/23 Blood Culture - Final, Complete Assessment/Plan Assessment/Plan Assessment/Plan Perforated diverticulitis, complicated Epistaxis Substance abuse: Tobacco HTN - averaging about 150/[address] Abd/Pelvis. Pt encouraged to ambulate minimum TID and use IS. Continue oral ABX. pain meds and anti-emetics as needed. Continue minced moist diet, advance tomorrow is pain has not worsened Continue conservative tx at this time per pt, surgery if condition worsens NPO after midnight in case pt elects surgery Consult medicine for HTN management NORMA BURNHAM DO 07/25/23 1354: Subjective Subjective/Events-last exam Patient with pain in lower abdomen. Has some food yesterday. Currently NPO. Getting ct abd/pelvis today. Denies n/v fever sweats chills shortness of breath or chest pain. Objective Exam General Appearance: No Apparent Distress, Obese (morbidly) HEENT: PERRL/EOMI, Normal ENT Inspection Neck: Normal Inspection, Non Tender Respiratory: Chest Non Tender, No Accessory Muscle Use, No Respiratory Distress Cardiovascular: Regular Rate, Rhythm, No JVD Gastrointestinal: soft, tenderness (lower abdomen tenderness, more than when I previously saw last.) Extremity: Other (bruising on left forearm that pt says is from a blown venipuncture) Neurologic/Psychiatric: Alert, Oriented x3 Skin: Normal Color, Warm/Dry Lymphatic: No Adenopathy (post auricular, submandibular, submental, supracl avicular) Assessment/Plan Assessment/Plan Assessment/Plan Perforated diverticulitis, complicated Perforatoin hollow viscus Epistaxis Substance abuse: Tobacco HTN - averaging about 150/[address] Abd/Pelvis. Perforated diverticulitis, complicated Epistaxis Substance abuse: Tobacco HTN - averaging about 150/[address] Abd/Pelvis. demonstrated more free air and likely abscess Pt encouraged to ambulate minimum TID and use IS. Continue oral ABX. pain meds and anti-emetics as needed. NPO Consult medicine for HTN managemen Pt encouraged to ambulate minimum TID and use IS. Continue oral ABX. pain meds and anti-emetics as needed. Patient not improving and by ct scan more free air feel best to do lap hand assisted colon resection and likely colostomy all other indicated procedures possible open she understands risks and benefits and wishes to proceed. to or Supervisory-Addendum Brief Verification & Attestation Participated in pt care: history, MDM, physical Personally performed: exam, history, MDM, supervision of care Care discussed with: Medical Student Procedures: n/a Results interpretation: Verified all documentation Verification and Attestation of Medical Student E/M Service A medical student performed and documented this service in my presence. I reviewed and verified all information documented by the medical student and made modifications to such information, when appropriate. I personally performed the physical exam and medical decision making. Norma Burnham, Jul 25, 2023,13:54 JENNA GARRETT Jul 25, 2023 07:01 NORMA BURNHAM DO Jul 25, 2023 13:54
[2023-07-25] MEDS: PANTOPRAZOLE INJECTION 40 MG VIAL IV SCH (08:35)
[2023-07-25] MEDS: AMOXICILLIN/Clavulanate 875 MG TABLET PO SCH (08:36)
[2023-07-25] MEDS: ENOXAPARIN 40 MG/0.4 ML SYRINGE SC SCH ×2 (08:36→20:47)
[2023-07-25] MEDS ORDERED: NS 100 ML (IVPB) BAG IV ONE (09:30)
[2023-07-25] MEDS ORDERED: HOLD METFORMIN - RECEIVED CONTRAST 20 ML VIAL IV SCH (09:30)
[2023-07-25] MEDS ORDERED: IOHEXOL 350 MG/ML 100 ML (OMNIPAQUE 350) VIAL IV ONE (09:30)
--- NOTE | 2023-07-25 10:15 | Diagnostic Imaging Report ---
PROCEDURE: CT abdomen and pelvis with contrast, rule out appendicitis. TECHNIQUE: Multiple contiguous axial images were obtained through the abdomen and pelvis after the administration of intravenous contrast. All CT scans use one or more of the following dose optimizing techniques: automated exposure control, MA and/or KvP adjustment based on patient size and exam type or iterative reconstruction. INDICATION: Mid and lower abdominal pain. Recent CT demonstrated sigmoid diverticulitis with microperforation. This study is performed for followup. COMPARISON: Correlation is made with the recent CT from 07/18/2023. FINDINGS: Trace bilateral pleural effusions with bibasilar atelectasis are noted. There has been an increase in the pneumoperitoneum with a large amount of free air in the anterior upper abdomen. The degree of sigmoid inflammation appears to be less; however, there continues to be some free air in the midline pelvis. There has also been development of a loculated fluid collection in the deep midline pelvis anterior to the rectum measuring 6.3 x 2.8 cm. This does have a thin enhancing rim. There are several thick-walled small bowel loops in the lower abdomen midline pelvis as well as in the right lower quadrant. The amount of free fluid in the upper abdomen surrounding the liver and spleen has increased. There is also some free fluid in the right gutter and left gutter which has increased. The bladder is unremarkable. There does appear to be some gas within the central uterus and a colouterine fistula cannot be entirely excluded. IMPRESSION: 1. Trace bilateral pleural effusions and bibasilar atelectasis. 2. Overall increase in the amount of pneumoperitoneum in the abdomen and pelvis since the CT of 1 week earlier. There is a loculated fluid collection in the deep midline pelvis which is suggestive of a small abscess as well. There is some gas within the uterus and fistula formation with a bowel loop cannot be excluded. Dictated by: Dictated on workstation # [id number]
[2023-07-25] MEDS ORDERED: LIDOCAINE PF 2% 5 ML VIAL ONE (13:44)
[2023-07-25] MEDS ORDERED: NEOSTIGMINE 1 MG/1ML 10 ML VIAL ONE (13:44)
[2023-07-25] MEDS ORDERED: dexAMETHasone INJ 10 MG/ML 1 ML VIAL ONE ×2 (13:44→16:35)
[2023-07-25] MEDS ORDERED: ONDANSETRON INJECTION 4 MG/2 ML (SDV) ONE (13:44)
[2023-07-25] MEDS ORDERED: proPOfol INJECTION 200 MG/20 ML VIAL IV ONE (13:44)
[2023-07-25] MEDS ORDERED: ROCURONIUM 50 MG/5 ML VIAL IV ONE ×2 (13:44→16:56)
[2023-07-25] MEDS ORDERED: MIDAZOLAM INJ 2 MG/2 ML VIAL ONE (13:44)
[2023-07-25] MEDS ORDERED: GLYCOPYRROLATE INJ 0.2 MG/ML 2 ML VIAL ONE (13:44)
[2023-07-25] MEDS ORDERED: fentaNYL INJECTION 100 MCG/2 ML VIAL ONE (13:44)
[2023-07-25] MEDS ORDERED: LACTATED RINGERS 1,000 ML 1,000 ML IV PRN (13:45)
[2023-07-25] MEDS ORDERED: ceFAZolin INJECTION 2,000 MG in NS (IVPB) 50 ML 50 ML IV ONE (14:00)
[2023-07-25] MEDS ORDERED: metroNIDAZOLE 500MG/100ML IVPB 100 ML IV ONE (14:00)
[2023-07-25] MEDS ORDERED: LIDOCAINE/EPI 1%-1:200,000 (XYLOCAINE) 30 ML VIAL ONE (14:00)
[2023-07-25] MEDS ORDERED: SUGAMMADEX INJ 100 MG/ML 5 ML VIAL IV ONE (16:35)
[2023-07-25] MEDS ORDERED: LIDOCAINE/EPI 1%-1:200,000 (XYLOCAINE) 30 ML VIAL INJ ONE (16:52)
[2023-07-25] MEDS ORDERED: HYDROmorphone INJECTION 2 MG/ML VIAL ONE (16:59)
[2023-07-25] MEDS ORDERED: SEVOFLURANE (ULTANE) 15 ML INHAL SOLN ONE (17:01)
[2023-07-25] MEDS ORDERED: DESFLURANE (SUPRANE) 15 ML INHAL SOLN ONE (17:01)
--- NOTE | 2023-07-25 17:32 | Anesthesia-General Post-Op ---
General Patient Condition Mental Status/LOC: Same as Preop Cardiovascular: Satisfactory Nausea/Vomiting: Absent Respiratory: Satisfactory Pain: Controlled Complications: Absent Post Op Complications Complications None Follow Up Care/Instructions Patient Instructions None needed. Anesthesia/Patient Condition Patient Condition Patient is doing well, no complaints, stable vital signs, no apparent adverse anesthesia problems. No complications reported per nursing. KE ALBA CRNA Jul 25, 2023 17:32
[2023-07-25] MEDS ORDERED: HYDROmorphone INJECTION 2 MG/ML VIAL IV ONE (17:45)
[2023-07-25] MEDS ORDERED: ONDANSETRON INJECTION 4 MG/2 ML (SDV) IVP PRN (17:45)
[2023-07-25] MEDS ORDERED: fentaNYL INJECTION 100 MCG/2 ML VIAL IVP ONE (17:45)
--- NOTE | 2023-07-25 17:56 | Progress Note-Post Operative ---
Post-Operative Progess Note Surgeon (s)/Unit Manager Rn (s) Surgeon NORMA CID DO Unit Manager Rn: Rosy Pre-Operative Diagnosis hollow viscus perforation Post-Operative Diagnosis same Procedure & Operative Findings Date of Procedure 07/25/23 Procedure Performed/Findings lap hand assisted Shoemaker Anesthesia Type general Estimated Blood Loss Estimated blood loss (mL): minimal Specimens/Packing Specimens Removed sigmoid Packin selena drain NORMA CID DO Jul 25, 2023 17:56
[2023-07-25] MEDS: fentaNYL INJECTION 100 MCG/2 ML VIAL IV PRN ×2 (20:44→22:26)
[2023-07-25] MEDS: metroNIDAZOLE 500MG/100ML IVPB 100 ML IV SCH (20:47)
[2023-07-25] MEDS: HYDROcodone/ACETAMINOPHEN 5 MG/325 MG TABLET PO PRN (22:24)
[2023-07-25] MEDS: ceFAZolin INJECTION 2,000 MG in NS (IVPB) 50 ML 50 ML IV SCH (22:25)
[2023-07-26] MEDS: fentaNYL INJECTION 100 MCG/2 ML VIAL IV PRN ×6 (00:57→20:11)
[2023-07-26] MEDS: HYDROcodone/ACETAMINOPHEN 5 MG/325 MG TABLET PO PRN ×4 (03:02→20:11)
[2023-07-26 03:03] VITALS: BP 138/83
[2023-07-26 05:08] LABS: BASOPHILS % (AUTO) 0 % (0-10); EOSINOPHILS % (AUTO) 0 % (0-10); HEMATOCRIT 39 % (35-52); HEMOGLOBIN 13.6 g/dL (11.5-16.0); LYMPHOCYTES # (AUTO) 0.7 10^3/uL (1.0-4.0); LYMPHOCYTES % (AUTO) 7 % (12-44); MEAN CORPUSCULAR HEMOGLOBIN 35 pg (25-34); MEAN CORPUSCULAR HGB CONC 35 g/dL (32-36); MEAN CORPUSCULAR VOLUME 98 fL (80-99); MEAN PLATELET VOLUME 11.2 fL (9.0-12.2); MONOCYTES # (AUTO) 0.6 10^3/uL (0.0-1.0); MONOCYTES % (AUTO) 6 % (0-12); NEUTROPHILS # (AUTO) 8.3 10^3/uL (1.8-7.8); NEUTROPHILS % (AUTO) 83 % (42-75); PLATELET COUNT 197 10^3/uL (130-400)
[2023-07-26 05:25] LABS: ALBUMIN 2.5 GM/DL (3.2-4.5); POTASSIUM 4.6 MMOL/L (3.6-5.0)
[2023-07-26 05:26] LABS: CALCIUM 7.9 MG/DL (8.5-10.1)
[2023-07-26 05:27] LABS: TOTAL PROTEIN 5.6 GM/DL (6.4-8.2)
[2023-07-26 05:29] LABS: BILIRUBIN,TOTAL 0.4 MG/DL (0.1-1.0)
[2023-07-26 05:31] LABS: CREATININE SERUM 0.63 MG/DL (0.60-1.30)
[2023-07-26 05:34] LABS: MAGNESIUM 1.8 MG/DL (1.6-2.4)
[2023-07-26 05:49] LABS: BAND NEUTROPHILS 3 %; LYMPHOCYTES % (MANUAL) 5 %; MONOCYTES % (MANUAL) 5 %; NEUTROPHILS % (MANUAL) 85 %; REACTIVE LYMPHOCYTES 2 %
[2023-07-26] MEDS: metroNIDAZOLE 500MG/100ML IVPB 100 ML IV SCH ×3 (06:16→22:35)
[2023-07-26] MEDS: ceFAZolin INJECTION 2,000 MG in NS (IVPB) 50 ML 50 ML IV SCH ×3 (06:16→22:30)
--- NOTE | 2023-07-26 07:01 | Progress Note - Surgery ---
JENNA GARRETT 07/26/23 0701: Subjective Date Seen by a Provider: Jul 26, 2023 Time Seen by a Provider: 06:49 Subjective/Events-last exam 43 yo female post status hand assisted laproscopic colectomy with colostomy placement. pt in bed, lying supine at examination. Complains of significant incisional pain and has been taking pain meds as prescribed. States pain is too bad to sit up in bed. Colostomy appears purplish-pink with no output at this time. 190mL of serosanguineous fluid since surgery, 80mL in last 7 hrs. Urine output is 0.73mL/kg/hr. Normoactive bowel sounds. So far tolerating clear liquid diet. No nausea or vomiting. Denies fever, chest pain, shortness of breath. Review of Systems General: No Chills, No Night Sweats HEENT: No Head Aches, No Visual Changes Pulmonary: No Dyspnea, No Cough Cardiovascular: No: Chest Pain, Palpitations Gastrointestinal: Abdominal Pain (Incisional); No: Nausea, Vomiting Genitourinary: No Dysuria, No Frequency Musculoskeletal: No: shoulder pain, arm pain Neurological: No: Weakness, Numbness Focused Exam Time of Focused Exam: 0430 Objective Exam Vital Signs Date Time Temp Pulse Resp B/P (MAP) Pulse Ox O2 Delivery O2 Flow Rate FiO2 07/26/23 03:03 36.2 89 18 138/83 (101) 95 Room Air 07/25/23 23:04 36.7 75 16 145/73 (97) 94 Room Air 07/25/23 20:44 Room Air 07/25/23 19:32 37.3 86 19 125/76 (92) 95 Room Air 07/25/23 18:22 36.8 69 18 123/81 (95) 93 Room Air 07/25/23 18:10 Room Air 07/25/23 18:10 36.8 18 132/68 (89) 97 Room Air 07/25/23 18:02 Room Air 07/25/23 18:00 18 130/65 (86) 97 Room Air 07/25/23 17:56 Room Air 07/25/23 17:50 18 117/68 (84) 100 OxyMask 2.00 07/25/23 17:50 OxyMask 2.00 07/25/23 17:42 OxyMask 4.00 07/25/23 17:40 18 126/68 (87) 100 OxyMask 4.00 07/25/23 17:30 20 113/76 (88) 100 OxyMask 6.00 07/25/23 17:30 OxyMask 6.00 07/25/23 17:21 OxyMask 6.00 07/25/23 17:21 36.4 20 124/71 (88) 100 OxyMask 6.00 07/25/23 12:19 36.7 64 18 157/91 (113) 98 Room Air 07/25/23 08:12 36.6 72 18 168/99 (122) 96 Room Air 07/25/23 08:00 Room Air I & O 07/26/23 07:00 Intake Total 2700 ml Output Total 2191 ml Balance 509 ml Capillary Refill : Less Than 3 Seconds General Appearance: No Apparent Distress, Obese (morbidly) HEENT: PERRL/EOMI, Normal ENT Inspection Neck: Normal Inspection, Non Tender Respiratory: Lungs Clear, Normal Breath Sounds, No Accessory Muscle Use, No Respiratory Distress Cardiovascular: Regular Rate, Rhythm, No JVD Peripheral Pulses: 2+ Carotid (R), 2+ Carotid (L), 2+ Dorsalis Pedis (R), 2+ Left Dors-Pedis (L), 2+ Radial Pulses (R), 2+ Radial Pulses (L) Gastrointestinal: normal bowel sounds, soft, tenderness (lower abdomen tenderness, more than when I previously saw last.) Extremity: Other (bruising on left forearm that pt says is from a blown venipuncture) Neurologic/Psychiatric: Alert, Oriented x3 Skin: Normal Color, Warm/Dry Lymphatic: No Adenopathy (post auricular, submandibular, submental, supraclavicular) Results Lab Laboratory Tests 07/25/23 13:50: Serum Test, Qualitative NEGATIVE 07/26/23 05:00: White Blood Count 10.0, Red Blood Count 3.93, Hemoglobin 13.6, Hematocrit 39, Mean Corpuscular Volume 98, Mean Corpuscular Hemoglobin 35H, Mean Corpuscular Hemoglobin Concent 35, Red Cell Distribution Width 12.2, Platelet Count 197, Mean Platelet Volume 11.2, Immature Granulocyte % (Auto) 4, Neutrophils (%) (Auto) 83H, Lymphocytes (%) (Auto) 7L, Monocytes (%) (Auto) 6, Eosinophils (%) (Auto) 0, Basophils (%) (Auto) 0, Neutrophils # (Auto) 8.3H, Lymphocytes # (Auto) 0.7L, Monocytes # (Auto) 0.6, Eosinophils # (Auto) 0.0, Basophils # (A uto) 0.0, Immature Granulocyte # (Auto) 0.4H, Neutrophils % (Manual) 85, Lymphocytes % (Manual) 5, Monocytes % (Manual) 5, Band Neutrophils 3, Reactive Lymphocytes 2, Sodium Level 135, Potassium Level 4.6, Chloride Level 105, Carbon Dioxide Level 15L, Anion Gap 15H, Blood Urea Nitrogen 5L, Creatinine 0.63, Estimat Glomerular Filtration Rate 112, BUN/Creatinine Ratio 8, Glucose Level 108H, Calcium Level 7.9L, Corrected Calcium 9.1, Magnesium Level 1.8, Total Bilirubin 0.4, Aspartate Amino Transf (AST/SGOT) 57H, Alanine Aminotransferase (ALT/SGPT) 50, Alkaline Phosphatase 46, Total Protein 5.6L, Albumin 2.5L Microbiology 07/15/23 MRSA Screen - Final, Complete MRSA not isolated 07/15/23 Blood Culture - Final, Complete Assessment/Plan Assessment/Plan Assessment/Plan Perforated diverticulitis, complicated Perforation hollow viscus Substance abuse: Tobacco HTN - averaging about 150/[address] Abd/Pelvis. demonstrated more free air and likely abscess, surgery 07/26 Pt encouraged to ambulate minimum TID and use IS. Hold oral ABX, continue IV ABX post surgery pain meds and anti-emetics as needed. Clear liquid diet Consult medicine for HTN management GI prophylaxis DVT prophylaxis Remove ramirez catheter NORMA CID DO 07/26/23 1616: Subjective Subjective/Events-last exam Pain controlled. Not wanting to get up and walk. Urine output adequate. Tolerating clears. Colostomy no output. Drain serosang. Denies n/v fever sweats chills shortness of breath or chest pain. Family at bedside. Objective Exam General Appearance: No Apparent Distress, Obese (morbidly) HEENT: PERRL/EOMI, Normal ENT Inspection Neck: Normal Inspection, Non Tender Respiratory: Chest Non Tender, No Accessory Muscle Use, No Respiratory Distress Cardiovascular: Regular Rate, Rhythm, No JVD Gastrointestinal: soft, tenderness (incisional pain, colostomy purple/red hue ) Extremity: Other (bruising on left forearm that pt says is from a blown venipuncture) Neurologic/Psychiatric: Alert, Oriented x3 Skin: Normal Color, Warm/Dry Lymphatic: No Adenopathy (post auricular, submandibular, submental, supraclavicular) Assessment/Plan Assessment/Plan Assessment/Plan Perforated diverticulitis, complicated S/p lap hand assisted Shoemaker Perforation hollow viscus Substance abuse: Tobacco HTN CT Abd/Pelvis. demonstrated more free air and likely abscess, surgery 07/26 Pt encouraged to ambulate minimum TID and use IS. Hold oral ABX, continue IV ABX post surgery pain meds and anti-emetics as needed. Clear liquid diet GI prophylaxis DVT prophylaxis Remove ramirez catheter Supervisory-Addendum Brief Verification & Attestation Participated in pt care: history, MDM, physical Personally performed: exam, history, MDM, supervision of care Care discussed with: Medical Student Procedures: n/a Results interpretation: Verified all documentation Verification and Attestation of Medical Student E/M Service A medical student performed and documented this service in my presence. I reviewed and verified all information documented by the medical student and made modifications to such information, when appropriate. I personally performed the physical exam and medical decision making. Norma Cid, Jul 26, 2023,16:21 JENNA GARRETT Jul 26, 2023 07:01 NORMA CID DO Jul 26, 2023 16:16
[2023-07-26 07:32] VITALS: BP 148/84
[2023-07-26] MEDS: PANTOPRAZOLE INJECTION 40 MG VIAL IV SCH (08:38)
[2023-07-26] MEDS: ENOXAPARIN 40 MG/0.4 ML SYRINGE SC SCH ×2 (08:38→20:14)
--- NOTE | 2023-07-26 09:26 | Anesthesia-General Post-Op ---
General Patient Condition Mental Status/LOC: Same as Preop Cardiovascular: Satisfactory Nausea/Vomiting: Absent Respiratory: Satisfactory Pain: Controlled Complications: Absent Post Op Complications Complications None Follow Up Care/Instructions Patient Instructions None needed. Anesthesia/Patient Condition Patient Condition Patient is doing well, no complaints, stable vital signs, no apparent adverse anesthesia problems. No complications reported per nursing. MACARIO MATHUR CRNA Jul 26, 2023 09:26
[2023-07-26] MEDS: LACTATED RINGERS 1,000 ML 1,000 ML IV SCH ×3 (10:09→20:11)
[2023-07-26 12:20] VITALS: BP 150/85
[2023-07-26 16:03] VITALS: BP 128/85
[2023-07-26 19:32] VITALS: BP 150/90
[2023-07-26 23:37] VITALS: BP 122/78
--- NOTE | 2023-07-27 00:47 | OPERATIVE REPORT ---
DATE OF SERVICE: 07/25/2023 PREOPERATIVE DIAGNOSIS: Hollow viscus perforation. POSTOPERATIVE DIAGNOSIS: Hollow viscus perforation. PROCEDURES: Laparoscopic hand-assisted Agustín procedure. SURGEON: Janes Burnham DO CREW FOREMAN: Harrison Gallegos DO., assisted in retraction, dissection, and closure. ANESTHESIA: General. ESTIMATED BLOOD LOSS: Minimal. COMPLICATIONS: None. INDICATIONS: The patient is a 43-year-old female who has a whole viscus perforation. She was tried on conservative measures. Pain was worsening and had repeat CT scan demonstrating increased intra-abdominal air and patient was discussed options and patient wished to proceed with surgical intervention. She understands risks and benefits along with family, they wished to proceed. Consent was signed in chart. DESCRIPTION OF PROCEDURE: The patient was taken to the operating suite. She was prepped and draped in sterile fashion. Timeout was performed. A #15 blade scalpel was used to make an incision at the midline for hand port. A cautery was used to dissect down to the fascia, which was then opened and the abdomen was entered. Gelfoam port was able to be placed. A 12 mm trocar was then placed under direct visualization in the right upper quadrant. A pneumoperitoneum was achieved. The patient had multiple adhesions down into the pelvis and inflammatory changes. Small bowel was adherent down to the uterus into the abdominal wall. Blunt dissection was able to carefully start to mobilize the sigmoid colon and the small bowel. A 5 mm trocar was first placed in the right lower quadrant, which was also later converted to a 12 mm trocar. The abdomen was began to be irrigated and suctioned to help with visualization. The sigmoid was significantly inflamed and had adhesions further down into the pelvis, using hand with blunt dissection this was continued to be mobilized towards back in its normal position. Distal to this area, good healthy rectum was present, which was bluntly dissected around and a SHI stapler was then fired across this area distal to all the inflammatory changes. Once this was removed, the LigaSure was then used to begin mobilizing the sigmoid colon, taken the mesentery in a mediolateral fashion also having to mobilized along the white line of Toldt. Once this was mobilized up the left gutter, proximal to all the inflammatory changes, a linear SHI stapler was then fired across the colon. LigaSure was used to divide the mesentery completely and a stitch was placed in the distal portion of the colon for marking purposes. This was brought out through the midline incision. The small bowel was then ran from cecum to the ligament of Treitz. There was a serosal tear, using 3-0 Vicryl, this was then reinforced. No other findings pathological were present on the small bowel. At this time, the abdomen was irrigated and suctioned with copious amounts of irrigation. A 19 Tirso drain was placed on the pelvis for drainage and brought out through the 12 mm right lower quadrant site. In the left lateral abdomen, skin was grasped and cautery was used to remove a [place] of skin and subcutaneous tissue, which was down to the fascia. The fascia was scored in a cruciate fashion. The muscle was divided and the posterior fascia was opened. Two fingers were easily able to go through the defect and the distal portion of the colon was then brought up through this for colostomy creation. The fascia at the midline was then closed with 1-0 looped PDS in a running fashion. The wound was then irrigated with copious amounts of irrigation and the skin was then closed with keyla. The colostomy was then matured brooking the colon. The distal portion of the colostomy was pink and viable. The colostomy appliance was then placed. The 19 Tirso drain was secured with 3-0 silk suture and the 12 mm right upper quadrant incision was closed with keyla as well. Abdomen was washed and dried and sterile bandages were applied. The patient was taken to recovery room in stable condition. Job ID: [id number] DocumentID: [id number] Dictated Date: 07/26/2023 15:27:37 Jewel Waxer Date: 07/27/2023 00:44:00 Dictated By: DO ADAM GONZALEZ
[2023-07-27] MEDS: HYDROcodone/ACETAMINOPHEN 5 MG/325 MG TABLET PO PRN ×3 (02:55→16:00)
[2023-07-27] MEDS: fentaNYL INJECTION 100 MCG/2 ML VIAL IV PRN ×3 (02:55→19:03)
[2023-07-27 03:39] VITALS: BP 141/85
[2023-07-27] MEDS: LACTATED RINGERS 1,000 ML 1,000 ML IV SCH ×3 (03:41→18:31)
[2023-07-27] MEDS: ceFAZolin INJECTION 2,000 MG in NS (IVPB) 50 ML 50 ML IV SCH ×3 (04:57→21:25)
[2023-07-27] MEDS: metroNIDAZOLE 500MG/100ML IVPB 100 ML IV SCH ×3 (05:32→21:25)
[2023-07-27 06:45] LABS: BASOPHILS % (AUTO) 0 % (0-10); EOSINOPHILS % (AUTO) 0 % (0-10); HEMATOCRIT 36 % (35-52); LYMPHOCYTES # (AUTO) 0.7 10^3/uL (1.0-4.0); LYMPHOCYTES % (AUTO) 6 % (12-44); MEAN CORPUSCULAR HEMOGLOBIN 34 pg (25-34); MEAN CORPUSCULAR HGB CONC 34 g/dL (32-36); MEAN CORPUSCULAR VOLUME 100 fL (80-99); MEAN PLATELET VOLUME 11.5 fL (9.0-12.2); MONOCYTES # (AUTO) 0.3 10^3/uL (0.0-1.0); MONOCYTES % (AUTO) 3 % (0-12); NEUTROPHILS # (AUTO) 9.7 10^3/uL (1.8-7.8); NEUTROPHILS % (AUTO) 86 % (42-75); PLATELET COUNT 216 10^3/uL (130-400); WHITE BLOOD COUNT 11.4 10^3/uL (4.3-11.0)
[2023-07-27 06:47] LABS: ALBUMIN 2.6 GM/DL (3.2-4.5)
[2023-07-27 06:48] LABS: POTASSIUM 3.6 MMOL/L (3.6-5.0)
[2023-07-27 06:49] LABS: CALCIUM 8.2 MG/DL (8.5-10.1)
[2023-07-27 06:50] LABS: TOTAL PROTEIN 5.5 GM/DL (6.4-8.2)
[2023-07-27 06:52] LABS: BILIRUBIN,TOTAL 0.4 MG/DL (0.1-1.0)
[2023-07-27 06:53] LABS: CREATININE SERUM 0.63 MG/DL (0.60-1.30)
--- NOTE | 2023-07-27 06:58 | Progress Note - Surgery ---
JENNA GARRETT 07/27/23 0658: Subjective Date Seen by a Provider: Jul 27, 2023 Time Seen by a Provider: 06:47 Subjective/Events-last exam Pt with now new complaints. Abd still with incisional pain that is controlled by meds and rest. Feels worse when moving. Has been getting up to use the bathroom but otherwise has been in bed. Minimal amount of blood coming out of colostomy, no stool. Edges of colostomy are red, center is darker with purplish hue. Drain on right side still collecting moderate amount of serosanguineuos fluid but getting light in color. Says chicken broth from hospital is nasty and asked if she can have some one bring her some [employer] chicken noodle soup if she is to remain on clears. Talked to about possible diet advancement to soft foods and pt says she feels comfortable trying that. No fever, nausea, vomiting, shortness of breath, chest pain. Family in room at time of examination Review of Systems General: No Chills, No Night Sweats HEENT: No Head Aches, No Visual Changes Pulmonary: No Dyspnea, No Cough Cardiovascular: No: Chest Pain, Palpitations Gastrointestinal: Abdominal Pain (incisional pain); No: Nausea, Vomiting Genitourinary: No Dysuria, No Frequency Musculoskeletal: No: shoulder pain, arm pain Neurological: No: Weakness, Numbness Focused Exam Time of Focused Exam: 0430 Objective Exam Vital Signs Date Time Temp Pulse Resp B/P (MAP) Pulse Ox O2 Delivery O2 Flow Rate FiO2 07/27/23 03:39 37.1 106 18 141/85 (103) 95 Room Air 0.00 0.00 07/26/23 23:37 37.3 109 18 122/78 (93) 95 Room Air 0.00 0.00 07/26/23 20:11 Room Air 07/26/23 19:32 36.7 110 17 150/90 (110) 96 Room Air 07/26/23 16:03 37.0 114 18 128/85 (99) 97 Room Air 07/26/23 12:20 36.5 98 16 150/85 (106) 95 Room Air 07/26/23 08:00 Room Air 07/26/23 07:32 36.6 103 18 148/84 (105) 96 Room Air I & O 07/27/23 07:00 Intake Total 3800 ml Output Total 1590 ml Balance 2210 ml Capillary Refill : Less Than 3 Seconds General Appearance: No Apparent Distress, Obese (morbidly) HEENT: PERRL/EOMI, Normal ENT Inspection Neck: Normal Inspection, Non Tender Respiratory: Chest Non Tender, No Accessory Muscle Use, No Respiratory Distress Cardiovascular: Regular Rate, Rhythm, No JVD Peripheral Pulses: 2+ Carotid (R), 2+ Carotid (L), 2+ Dorsalis Pedis (R), 2+ Left Dors-Pedis (L), 2+ Radial Pulses (R), 2+ Radial Pulses (L) Gastrointestinal: soft, tenderness (incisional pain, colostomy purple/red hue ) Extremity: Non Tender, Other (bruising on left forearm that pt says is from a blown venipuncture) Neurologic/Psychiatric: Alert, Oriented x3 Skin: Normal Color, Warm/Dry Lymphatic: No Adenopathy (post auricular, submandibular, submental, supraclavicular) Results Lab Laboratory Tests 07/27/23 05:33: Magnesium Level 1.8 Microbiology 07/25/23 MRSA Screen - Final, Complete MRSA not isolated 07/15/23 Blood Culture - Final, Complete Assessment/Plan Assessment/Plan Assessment/Plan Perforated diverticulitis, complicated S/p lap hand assisted Shoemaker Perforation hollow viscus Substance abuse: Tobacco HTN tachycardia CT Abd/Pelvis. demonstrated more free air and likely abscess, surgery 07/26 Pt encouraged to ambulate minimum TID and use IS. Hold oral ABX, continue IV ABX post surgery pain meds and anti-emetics as needed. Clear liquid diet, consider advancing to soft foods tomorrow if colostomy looks betters and has output GI prophylaxis DVT prophylaxis Bisacodyl to help stimulate GI track NORMA CID DO 07/27/239: Subjective Subjective/Events-last exam Incisional pain. Keeping pretty much under control. Ambulating some. Using IS. No output. Little bit of blood into colostomy. Colostomy with red/purple hue. Tolerating clears. Denies n/v fever sweats chills shortness of breath or chest pain. Objective Exam General Appearance: No Apparent Distress, Obese (morbidly) HEENT: PERRL/EOMI, Normal ENT Inspection Neck: Normal Inspection, Non Tender Respiratory: Chest Non Tender, No Accessory Muscle Use, No Respiratory Distress Cardiovascular: Regular Rate, Rhythm, No JVD Gastrointestinal: soft, tenderness (incisional pain, colostomy purple/red hue ) Extremity: Non Tender, Other (bruising on left forearm ) Neurologic/Psychiatric: Alert, Oriented x3 Skin: Normal Color, Warm/Dry Lymphatic: No Adenopathy (post auricular, submandibular, submental, supraclavicular) Assessment/Plan Assessment/Plan Assessment/Plan Perforated diverticulitis, complicated S/p lap hand assisted Shoemaker Perforation hollow viscus Substance abuse: Tobacco HTN tachycardia CT Abd/Pelvis. demonstrated more free air and likely abscess, surgery 07/26 Pt encouraged to ambulate minimum TID and use IS. Hold oral ABX, continue IV ABX post surgery pain meds and anti-emetics as needed. Clear liquid diet GI prophylaxis DVT prophylaxis Ambulate Continue to monitor colostomy, had slight duscky appearance, will continue to monitor. Supervisory-Addendum Brief Verification & Attestation Participated in pt care: history, MDM, physical Personally performed: exam, history, MDM, supervision of care Care discussed with: Medical Student Procedures: n/a Results interpretation: Verified all documentation Verification and Attestation of Medical Student E/M Service A medical student performed and documented this service in my presence. I reviewed and verified all information documented by the medical student and made modifications to such information, when appropriate. I personally performed the physical exam and medical decision making. Norma Cid, Jul 27, 2023,19:44 JENNA GARRETT Jul 27, 2023 06:58 NORMA CID DO Jul 27, 2023 19:39
[2023-07-27 08:26] VITALS: BP 154/68
[2023-07-27] MEDS: PANTOPRAZOLE INJECTION 40 MG VIAL IV SCH (08:53)
[2023-07-27] MEDS: ENOXAPARIN 40 MG/0.4 ML SYRINGE SC SCH ×2 (08:53→21:25)
[2023-07-27 12:49] VITALS: BP 130/86
[2023-07-27 16:15] VITALS: BP 138/83
[2023-07-27 19:29] VITALS: BP 114/76
[2023-07-27 23:08] VITALS: BP 120/74
[2023-07-28] MEDS: fentaNYL INJECTION 100 MCG/2 ML VIAL IV PRN ×4 (01:59→22:13)
[2023-07-28] MEDS: HYDROcodone/ACETAMINOPHEN 5 MG/325 MG TABLET PO PRN ×4 (01:59→22:03)
[2023-07-28 03:23] VITALS: BP 113/68
[2023-07-28] MEDS: ceFAZolin INJECTION 2,000 MG in NS (IVPB) 50 ML 50 ML IV SCH ×3 (05:08→21:40)
[2023-07-28] MEDS: metroNIDAZOLE 500MG/100ML IVPB 100 ML IV SCH ×3 (05:08→21:40)
[2023-07-28 05:16] LABS: BASOPHILS % (AUTO) 0 % (0-10); EOSINOPHILS # (AUTO) 0.1 10^3/uL (0.0-0.3); EOSINOPHILS % (AUTO) 1 % (0-10); HEMATOCRIT 31 % (35-52); HEMOGLOBIN 10.6 g/dL (11.5-16.0); LYMPHOCYTES # (AUTO) 0.9 10^3/uL (1.0-4.0); LYMPHOCYTES % (AUTO) 11 % (12-44); MEAN CORPUSCULAR HEMOGLOBIN 34 pg (25-34); MEAN CORPUSCULAR HGB CONC 34 g/dL (32-36); MEAN CORPUSCULAR VOLUME 99 fL (80-99); MEAN PLATELET VOLUME 10.8 fL (9.0-12.2); MONOCYTES # (AUTO) 0.4 10^3/uL (0.0-1.0); MONOCYTES % (AUTO) 5 % (0-12); NEUTROPHILS # (AUTO) 5.8 10^3/uL (1.8-7.8); NEUTROPHILS % (AUTO) 76 % (42-75); PLATELET COUNT 199 10^3/uL (130-400); WHITE BLOOD COUNT 7.6 10^3/uL (4.3-11.0)
[2023-07-28 05:28] LABS: ALBUMIN 2.5 GM/DL (3.2-4.5); POTASSIUM 3.4 MMOL/L (3.6-5.0)
[2023-07-28 05:31] LABS: TOTAL PROTEIN 5.2 GM/DL (6.4-8.2)
[2023-07-28 05:32] LABS: BILIRUBIN,TOTAL 0.3 MG/DL (0.1-1.0)
[2023-07-28 05:34] LABS: CREATININE SERUM 0.61 MG/DL (0.60-1.30)
--- NOTE | 2023-07-28 06:54 | Progress Note - Surgery ---
JENNA GARRETT 07/28/23 0654: Subjective Date Seen by a Provider: Jul 28, 2023 Time Seen by a Provider: 06:43 Subjective/Events-last exam Pt with no new complaints status post hand-assisted laproscopic sigmoidectomy. Pain has been well controlled with meds. Abd pain is incisional and peristomal. Pt using bathroom rather than bedside commode and stated she walked to the "double doors" and back. HR is tachycardic. Colostomy is worse today, no red at edges. Whole colostomy appears darker, more black than purplish. Not output from colostomy, bag with some blood in it. Hypo active bowel sounds in all quadrants. Drain on right side with serosanguineous drainage at 200+mL overnight. Tolerating clears, had some [employer] chicken noodle soup yesterday, ok'd by doctor. Says she started having a minimally productive cough last night. Denies fever, chest pain, shortness of breath, nausea, vomiting. Family in room at time of evaluation. Review of Systems General: No Chills, No Night Sweats HEENT: No Head Aches, No Visual Changes Pulmonary: No Dyspnea; Cough (with some phlegm) Cardiovascular: No: Chest Pain, Palpitations Gastrointestinal: Abdominal Pain (Incisional); No: Nausea, Vomiting Genitourinary: No Dysuria, No Frequency Musculoskeletal: No: shoulder pain, arm pain Neurological: No: Weakness, Numbness Focused Exam Time of Focused Exam: 0430 Objective Exam Vital Signs Date Time Temp Pulse Resp B/P (MAP) Pulse Ox O2 Delivery O2 Flow Rate FiO2 07/28/23 03:23 36.0 102 20 113/68 (83) 97 Room Air 0.00 0.00 07/27/23 23:08 36.2 105 20 120/74 (89) 96 Room Air 0.00 0.00 07/27/23 20:03 Room Air 07/27/23 19:29 36.2 101 20 114/76 (89) 96 Room Air 07/27/23 16:15 36.9 97 19 138/83 (101) 95 Room Air 07/27/23 12:49 36.2 88 18 130/86 (101) 96 Room Air 07/27/23 08:26 36.5 70 17 154/68 (96) 97 Room Air 07/27/23 08:00 Room Air I & O 07/28/23 07:00 Intake Total 3950 ml Output Total 725 ml Balance 3225 ml Capillary Refill : Less Than 3 Seconds General Appearance: No Apparent Distress, Obese (morbidly) HEENT: PERRL/EOMI, Normal ENT Inspection Neck: Normal Inspection, Non Tender, Supple Respiratory: Chest Non Tender, Normal Breath Sounds, No Accessory Muscle Use, No Respiratory Distress Cardiovascular: No Edema, No JVD, Tachycardia (102 at 0323, steady around 100 over last several readings) Peripheral Pulses: 2+ Carotid (R), 2+ Carotid (L), 2+ Dorsalis Pedis (R), 2+ Left Dors-Pedis (L), 2+ Radial Pulses (R), 2+ Radial Pulses (L) Gastrointestinal: soft, tenderness (incisional pain, colostomy dark/black hue, no erythema around incision sites, appear to be healing well) Extremity: Non Tender, No Pedal Edema, Other (bruising on left forearm ) Neurologic/Psychiatric: Alert, Oriented x3, Normal Mood/Affect Skin: Normal Color, Warm/Dry Lymphatic: No Adenopathy (post auricular, submandibular, submental, supraclavicular) Results Lab Laboratory Tests 07/28/23 05:10: White Blood Count 7.6, Red Blood Count 3.15L, Hemoglobin 10.6L, Hematocrit 31L, Mean Corpuscular Volume 99, Mean Corpuscular Hemoglobin 34, Mean Corpuscular Hemoglobin Concent 34, Red Cell Distribution Width 12.9, Platelet Count 199, Mean Platelet Volume 10.8, Immature Granulocyte % (Auto) 6, Neutrophils (%) (Auto) 76H, Lymphocytes (%) (Auto) 11L, Monocytes (%) (Auto) 5, Eosinophils (%) (Auto) 1, Basophils (%) (Auto) 0, Neutrophils # (Auto) 5.8, Lymphocytes # (Auto) 0.9L, Monocytes # (Auto) 0.4, Eosinophils # (Auto) 0.1, Basophils # (Auto) 0.0, Immature Granulocyte # (Auto) 0.5H, Sodium Level 135, Potassium Level 3.4L, Chloride Level 102, Carbon Dioxide Level 23, Anion Gap 10, Blood Urea Nitrogen 6L, Creatinine 0.61, Estimat Glomerular Filtration Rate 113, BUN/Creatinine Ratio 10, Glucose Level 94, Calcium Level 8.0L, Corrected Calcium 9.2, Total Bilirubin 0.3, Aspartate Amino Transf (AST/SGOT) 26, Alanine Aminotransferase (ALT/SGPT) 25, Alkaline Phosphatase 42, Total Protein 5.2L, Albumin 2.5L Microbiology 07/25/23 MRSA Screen - Final, Complete MRSA not isolated 07/15/23 Blood Culture - Final, Complete Assessment/Plan Assessment/Plan Assessment/Plan Perforated diverticulitis, complicated S/p lap hand assisted Shoemaker Perforation hollow viscus Substance abuse: Tobacco HTN tachycardia CT Abd/Pelvis. demonstrated more free air and likely abscess, surgery 07/26 Pt encouraged to ambulate minimum TID and use IS. Hold oral ABX, continue IV ABX post surgery pain meds and anti-emetics as needed. Clear liquid diet GI prophylaxis DVT prophylaxis Colostomy with more dark appearance today. Test tube test for viability. Possible Colostomy reconstruction. NORMA CID DO 07/28/23 1300: Subjective Subjective/Events-last exam Pain controlled. No output from colostomy. Ambulating some.Colostomy is dark she states. Drain serosang. Wbc improved. Tolerating clears. Denies n/v fever sweats chills shortness of breath or chest pain. Objective Exam General Appearance: No Apparent Distress, Obese (morbidly) Neck: Normal Inspection, Non Tender, Supple Respiratory: Chest Non Tender, No Accessory Muscle Use, No Respiratory Distress Cardiovascular: No Edema, No JVD, Tachycardia Gastrointestinal: soft, tenderness (incisional pain, colostomy dark purple hue with red visualize underneath purple I removed the colostomy bag. Test tube inserted and appears to be viable when test tube inserted into colostomy, no erythema around incision sites, appear to be healing well) Extremity: Non Tender, Other (bruising on left forearm ) Neurologic/Psychiatric: Alert, Oriented x3, Normal Mood/Affect Skin: Normal Color, Warm/Dry Lymphatic: No Adenopathy (post auricular, submandibular, submental, supraclavicular) Assessment/Plan Assessment/Plan Assessment/Plan Perforated diverticulitis, complicated S/p lap hand assisted Shoemaker Perforation hollow viscus Substance abuse: Tobacco HTN tachycardia CT Abd/Pelvis. demonstrated more free air and likely abscess, surgery 07/26 Pt encouraged to ambulate minimum TID and use IS. Hold oral ABX, continue IV ABX post surgery pain meds and anti-emetics as needed. Clear liquid diet awaiting bowel function GI prophylaxis DVT prophylaxis Colostomy appears same and testtube inserted and appears to be viable colostomy still. Supervisory-Addendum Brief Verification & Attestation Participated in pt care: history, MDM, physical Personally performed: exam, history, MDM, supervision of care Care discussed with: Medical Student Procedures: n/a Results interpretation: Verified all documentation Verification and Attestation of Medical Student E/M Service A medical student performed and documented this service in my presence. I reviewed and verified all information documented by the medical student and made modifications to such information, when appropriate. I personally performed the physical exam and medical decision making. Norma Cid, Jul 28, 2023,13:00 JENNA GARRETT Jul 28, 2023 06:54 NORMA CID DO Jul 28, 2023 13:00
[2023-07-28] MEDS: ENOXAPARIN 40 MG/0.4 ML SYRINGE SC SCH ×2 (07:47→20:03)
[2023-07-28] MEDS: PANTOPRAZOLE INJECTION 40 MG VIAL IV SCH (07:48)
[2023-07-28 08:05] VITALS: BP 116/71
[2023-07-28] MEDS: LACTATED RINGERS 1,000 ML 1,000 ML IV SCH ×2 (11:32→21:39)
[2023-07-28 12:30] VITALS: BP 133/75
[2023-07-28 15:41] VITALS: BP 147/74
[2023-07-28 19:43] VITALS: BP 145/68
[2023-07-29] VITALS (7 sets, daily range): BP systolic 123–138; BP diastolic 71–82
[2023-07-29] MEDS: metroNIDAZOLE 500MG/100ML IVPB 100 ML IV SCH ×3 (05:34→22:09)
[2023-07-29] MEDS: ceFAZolin INJECTION 2,000 MG in NS (IVPB) 50 ML 50 ML IV SCH ×3 (05:34→20:56)
--- NOTE | 2023-07-29 07:33 | Progress Note - Surgery ---
JENNA GARRETT 07/29/23 0733: Subjective Date Seen by a Provider: Jul 29, 2023 Time Seen by a Provider: 07:23 Subjective/Events-last exam Pt with no new complaints. Reports walking laps around hospital floor yesterday. Pain well controlled and only incisional pain. No gas or stool output from colo stomy. Colostomy appears better than yesterday. Center has crusted appearance indicative a sloughing of tissue. Rest of ostomy looks more red swirled with darker/purple tissue. Pt tolerating diet but says she has not been having too much because she has not felt hungry. No nausea, vomiting, chest pain, shortness of breath, fever. Review of Systems General: No Chills, No Night Sweats HEENT: No Head Aches, No Visual Changes Pulmonary: No Dyspnea, No Cough Cardiovascular: No: Chest Pain, Palpitations Gastrointestinal: Abdominal Pain (incisional, and peristomal.); No: Nausea, Vomiting Genitourinary: No Dysuria, No Frequency Musculoskeletal: No: shoulder pain, arm pain Neurological: No: Weakness, Numbness Focused Exam Time of Focused Exam: 429 Objective Exam Vital Signs Date Time Temp Pulse Resp B/P (MAP) Pulse Ox O2 Delivery O2 Flow Rate FiO2 07/29/23 04:39 36.5 88 18 135/77 (96) 94 Room Air 07/29/23 00:14 36.7 85 18 123/80 (94) 94 Room Air 07/28/23 20:00 Room Air 07/28/23 19:43 37.3 80 20 145/68 (93) 96 Room Air 07/28/23 15:41 37.4 85 18 147/74 (98) 94 Room Air 07/28/23 12:30 36.1 92 14 133/75 (94) 97 Room Air 07/28/23 08:05 36.5 85 14 116/71 (86) 96 Room Air 07/28/23 08:00 96 Room Air 0.00 I & O 07/29/23 07:00 Intake Total 1160 ml Output Total 2810 ml Balance -1650 ml Capillary Refill : Less Than 3 Seconds General Appearance: No Apparent Distress, Obese (morbidly) HEENT: PERRL/EOMI, Normal ENT Inspection Neck: Normal Inspection, Non Tender, Supple Respiratory: Chest Non Tender, No Accessory Muscle Use, No Respiratory Distress Cardiovascular: Regular Rate, Rhythm, No Edema, No JVD, Normal Peripheral Pulses, Tachycardia Peripheral Pulses: 2+ Carotid (R), 2+ Carotid (L), 2+ Dorsalis Pedis (R), 2+ Left Dors-Pedis (L), 2+ Radial Pulses (R), 2+ Radial Pulses (L) Gastrointestinal: soft, tenderness (incisional pain, appear to be healing well) Extremity: Non Tender, No Pedal Edema, Other (bruising on left forearm ) Neurologic/Psychiatric: Alert, Oriented x3, Normal Mood/Affect Skin: Normal Color, Warm/Dry Lymphatic: No Adenopathy (post auricular, submandibular, submental, supraclavicular) Results Lab Microbiology 07/25/23 MRSA Screen - Final, Complete MRSA not isolated 07/15/23 Blood Culture - Final, Complete Assessment/Plan Assessment/Plan Assessment/Plan Perforated diverticulitis, complicated S/p lap hand assisted Shoemaker Perforation hollow viscus Substance abuse: Tobacco HTN tachycardia CT Abd/Pelvis. demonstrated more free air and likely abscess, surgery 07/26 Pt encouraged to ambulate minimum TID and use IS. Hold oral ABX, continue IV ABX post surgery pain meds and anti-emetics as needed. Clear liquid diet awaiting bowel function GI prophylaxis DVT prophylaxis Colostomy appears better today. NORMA BURNHAM DO 07/30/23 1036: Subjective Subjective/Events-last exam No bowel function. Ambulating. Tolerating clears. Colostomy dark but viable. Denies n/v fever sweats chills shortness of breath or chest pain. Objective Exam General Appearance: No Apparent Distress, Obese (morbidly) HEENT: PERRL/EOMI, Normal ENT Inspection Neck: Normal Inspection, Non Tender Respiratory: Chest Non Tender, No Accessory Muscle Use, No Respiratory Distress Cardiovascular: Regular Rate, Rhythm, No JVD Gastrointestinal: soft, tenderness (incisional pain, appear to be healing well), other (colostomy dark purple with pink below it appears viable, no output) Extremity: Other (bruising on left forearm ) Neurologic/Psychiatric: Alert, Oriented x3 Skin: Normal Color, Warm/Dry Lymphatic: No Adenopathy (post auricular, submandibular, submental, sup raclavicular) Assessment/Plan Assessment/Plan Assessment/Plan Perforated diverticulitis, complicated S/p lap hand assisted Shoemaker Perforation hollow viscus Substance abuse: Tobacco HTN tachycardia CT Abd/Pelvis. demonstrated more free air and likely abscess, surgery 07/26 Pt encouraged to ambulate minimum TID and use IS. Hold oral ABX, continue IV ABX post surgery pain meds and anti-emetics as needed. Clear liquid diet awaiting bowel function GI prophylaxis DVT prophylaxis Colostomy appears better today. Supervisory-Addendum Brief Verification & Attestation Participated in pt care: history, MDM, physical Personally performed: exam, history, MDM, supervision of care Care discussed with: Medical Student Procedures: n/a Results interpretation: Verified all documentation Verification and Attestation of Medical Student E/M Service A medical student performed and documented this service in my presence. I reviewed and verified all information documented by the medical student and made modifications to such information, when appropriate. I personally performed the physical exam and medical decision making. Norma Burnham, Jul 29, 2023,18:36 JENNA GARRETT Jul 29, 2023 07:33 NORMA BURNHAM DO Jul 30, 2023 10:36
[2023-07-29] MEDS: PANTOPRAZOLE INJECTION 40 MG VIAL IV SCH (08:32)
[2023-07-29] MEDS: ENOXAPARIN 40 MG/0.4 ML SYRINGE SC SCH ×2 (08:32→20:55)
[2023-07-29] MEDS: HYDROcodone/ACETAMINOPHEN 5 MG/325 MG TABLET PO PRN ×3 (10:19→20:58)
[2023-07-29] MEDS: LACTATED RINGERS 1,000 ML 1,000 ML IV SCH (10:19)
[2023-07-29 15:14] LABS: BASOPHILS % (AUTO) 0 % (0-10); EOSINOPHILS # (AUTO) 0.1 10^3/uL (0.0-0.3); EOSINOPHILS % (AUTO) 1 % (0-10); HEMATOCRIT 31 % (35-52); HEMOGLOBIN 10.7 g/dL (11.5-16.0); LYMPHOCYTES # (AUTO) 0.8 10^3/uL (1.0-4.0); LYMPHOCYTES % (AUTO) 14 % (12-44); MEAN CORPUSCULAR HEMOGLOBIN 34 pg (25-34); MEAN CORPUSCULAR HGB CONC 35 g/dL (32-36); MEAN CORPUSCULAR VOLUME 99 fL (80-99); MEAN PLATELET VOLUME 10.9 fL (9.0-12.2); MONOCYTES # (AUTO) 0.4 10^3/uL (0.0-1.0); MONOCYTES % (AUTO) 7 % (0-12); NEUTROPHILS # (AUTO) 4.3 10^3/uL (1.8-7.8); NEUTROPHILS % (AUTO) 73 % (42-75); PLATELET COUNT 187 10^3/uL (130-400); WHITE BLOOD COUNT 5.8 10^3/uL (4.3-11.0)
[2023-07-29 15:48] LABS: ALBUMIN 2.4 GM/DL (3.2-4.5); BILIRUBIN,TOTAL 0.2 MG/DL (0.1-1.0); CALCIUM 7.7 MG/DL (8.5-10.1); CREATININE SERUM 0.6 MG/DL (0.60-1.30); POTASSIUM 3.1 MMOL/L (3.6-5.0); TOTAL PROTEIN 4.9 GM/DL (6.4-8.2)
[2023-07-30] MEDS: LACTATED RINGERS 1,000 ML 1,000 ML IV SCH ×4 (00:21→19:53)
[2023-07-30] MEDS: HYDROcodone/ACETAMINOPHEN 5 MG/325 MG TABLET PO PRN ×3 (02:12→20:29)
[2023-07-30 03:32] VITALS: BP 126/76
[2023-07-30] MEDS: ceFAZolin INJECTION 2,000 MG in NS (IVPB) 50 ML 50 ML IV SCH (05:33)
[2023-07-30] MEDS: metroNIDAZOLE 500MG/100ML IVPB 100 ML IV SCH (05:35)
[2023-07-30 07:27] VITALS: BP 134/80
--- NOTE | 2023-07-30 07:36 | Progress Note - Surgery ---
JENNA GARRETT 07/30/23 0736: Subjective Date Seen by a Provider: Jul 30, 2023 Time Seen by a Provider: 07:30 Subjective/Events-last exam Pt with no new complaints. Still not passing gas or output in colostomy. States she can feel the gas building up in belly. Nurse and pt said she walked multiple times yesterday. Colostomy same as yesterday. Pt tolerating clear diet with no nausea or vomiting. Pain well controlled with oral meds and is still only incisional and peristomal. Incisions healing well. Denies fever, shortness of breath, chest pain. Family in room at time of examination Review of Systems General: No Chills, No Night Sweats HEENT: No Head Aches, No Visual Changes Pulmonary: No Dyspnea, No Cough Cardiovascular: No: Chest Pain, Palpitations Gastrointestinal: Abdominal Pain (incisional and peristomal well controlled); No: Nausea, Vomiting Genitourinary: No Dysuria, No Frequency Musculoskeletal: No: neck pain, shoulder pain Neurological: No: Weakness, Numbness Focused Exam Time of Focused Exam: 429 Objective Exam Vital Signs Date Time Temp Pulse Resp B/P (MAP) Pulse Ox O2 Delivery O2 Flow Rate FiO2 07/30/23 07:27 36.5 79 18 134/80 (98) 95 Room Air 07/30/23 03:32 36.2 85 16 126/76 (93) 95 Room Air 0.00 0.00 07/29/23 23:48 36.7 91 16 134/76 (95) 95 Room Air 0.00 0.00 07/29/23 20:50 Room Air 07/29/23 19:55 37.1 82 16 138/82 (100) 97 Room Air 07/29/23 16:00 36.6 80 20 129/78 (95) 97 Room Air 07/29/23 11:47 36.4 79 16 125/71 (89) 95 Room Air 07/29/23 08:41 Room Air 07/29/23 07:53 35.9 87 16 131/82 (98) 96 Room Air I & O 07/30/23 07:00 Intake Total 2070 ml Output Total 3130 ml Balance -1060 ml Capillary Refill : Less Than 3 Seconds General Appearance: No Apparent Distress, Obese (morbidly) HEENT: PERRL/EOMI, Normal ENT Inspection Neck: Normal Inspection, Non Tender, Supple Respiratory: Chest Non Tender, No Accessory Muscle Use, No Respiratory Distress Cardiovascular: Regular Rate, Rhythm, No Edema, No JVD, Normal Peripheral Pulses, Tachycardia Peripheral Pulses: 2+ Carotid (R), 2+ Carotid (L), 2+ Dorsalis Pedis (R), 2+ Left Dors-Pedis (L), 2+ Radial Pulses (R), 2+ Radial Pulses (L) Gastrointestinal: soft, tenderness (incisional and peristomal pain, appear to be healing well, colostomy is dark with some underlying beefy redness) Extremity: Non Tender, No Pedal Edema, Other (bruising on left forearm ) Neurologic/Psychiatric: Alert, Oriented x3, Normal Mood/Affect Skin: Normal Color, Warm/Dry Lymphatic: No Adenopathy (post auricular, submandibular, submental, supraclavicular) Results Lab Laboratory Tests 07/29/23 15:05: White Blood Count 5.8, Red Blood Count 3.13L, Hemoglobin 10.7L, Hematocrit 31L, Mean Corpuscular Volume 99, Mean Corpuscular Hemoglobin 34, Mean Corpuscular Hemoglobin Concent 35, Red Cell Distribution Width 12.5, Platelet Count 187, Mean Platelet Volume 10.9, Immature Granulocyte % (Auto) 4, Neutrophils (%) (Auto) 73, Lymphocytes (%) (Auto) 14, Monocytes (%) (Auto) 7, Eosinophils (%) (Auto) 1, Basophils (%) (Auto) 0, Neutrophils # (Auto) 4.3, Lymphocytes # (Auto) 0.8L, Monocytes # (Auto) 0.4, Eosinophils # (Auto) 0.1, Basophils # (Auto) 0.0, Immature Granulocyte # (Auto) 0.2H, Sodium Level 138, Potassium Level 3.1L, Chloride Level 103, Carbon Dioxide Level 25, Anion Gap 10, Blood Urea Nitrogen 4L, Creatinine 0.60, Estimat Glomerular Filtration Rate 113, BUN/Creatinine Ratio 7, Glucose Level 112H, Calcium Level 7.7L, Corrected Calcium 9.0, Total Bilirubin 0.2, Aspartate Amino Transf (AST/SGOT) 39H, Alanine Aminotransferase (ALT/SGPT) 31, Alkaline Phosphatase 44, Total Protein 4.9L, Albumin 2.4L Microbiology 07/25/23 MRSA Screen - Final, Complete MRSA not isolated 07/15/23 Blood Culture - Final, Complete Assessment/Plan Assessment/Plan Assessment/Plan Perforated diverticulitis, complicated S/p lap hand assisted Shoemaker Perforation hollow viscus Substance abuse: Tobacco pre-HTN CT Abd/Pelvis. demonstrated more free air and likely abscess, surgery 07/26 Pt encouraged to ambulate minimum TID and use IS. Hold oral ABX, continue IV ABX post surgery pain meds and anti-emetics as needed. Clear liquid diet awaiting bowel function GI prophylaxis DVT prophylaxis Colostomy appears same as yesterday. NORMA BURNHAM DO 07/30/23 1040: Subjective Subjective/Events-last exam Tolerating clears. Ambulating. Hungry. No new complaints. Denies n/v fever sweats chills shortness of breath or chest pain. Objective Exam General Appearance: No Apparent Distress, Obese (morbidly) HEENT: PERRL/EOMI, Normal ENT Inspection Neck: Normal Inspection, Non Tender, Supple Respiratory: Chest Non Tender, No Accessory Muscle Use, No Respiratory Distress Cardiovascular: Regular Rate, Rhythm, No JVD Gastrointestinal: soft, tenderness (incisional and peristomal pain, appear to be healing well, colostomy is dark with some underlying beefy redness, matthieu serous) Extremity: Non Tender, Other (bruising on left forearm ) Neurologic/Psychiatric: Alert, Oriented x3, Normal Mood/Affect Skin: Normal Color, Warm/Dry Lymphatic: No Adenopathy (post auricular, submandibular, submental, supraclavicular) Assessment/Plan Assessment/Plan Assessment/Plan Perforated diverticulitis, complicated S/p lap hand assisted Shoemaker Perforation hollow viscus Substance abuse: Tobacco pre-HTN CT Abd/Pelvis. demonstrated more free air and likely abscess, surgery 07/26 Pt encouraged to ambulate minimum TID and use IS. Convert to oral ABX pain meds and anti-emetics as needed. Clear liquid diet advance to soft GI prophylaxis DVT prophylaxis Colostomy appears same as yesterday. Supervisory-Addendum Brief Verification & Attestation Participated in pt care: history, MDM, physical Personally performed: exam, history, MDM, supervision of care Care discussed with: Medical Student Procedures: n/a Results interpretation: Verified all documentation Verification and Attestation of Medical Student E/M Service A medical student performed and documented this service in my presence. I reviewed and verified all information documented by the medical student and made modifications to such information, when appropriate. I personally performed the physical exam and medical decision making. Norma Burnham, Jul 30, 2023,10:40 JENNA GARRETT Jul 30, 2023 07:36 NORMA BURNHAM DO Jul 30, 2023 10:40
[2023-07-30] MEDS: ENOXAPARIN 40 MG/0.4 ML SYRINGE SC SCH ×2 (08:18→19:52)
[2023-07-30] MEDS: PANTOPRAZOLE INJECTION 40 MG VIAL IV SCH (08:18)
[2023-07-30] MEDS ORDERED: NS IV 500 ML 500 ML IV PRN (10:30)
[2023-07-30 11:00] LABS: POTASSIUM 3.1 MMOL/L (3.6-5.0)
[2023-07-30 11:01] LABS: CALCIUM 7.9 MG/DL (8.5-10.1)
[2023-07-30 11:06] LABS: CREATININE SERUM 0.56 MG/DL (0.60-1.30); PHOSPHORUS 2.5 MG/DL (2.3-4.7)
[2023-07-30 11:08] LABS: MAGNESIUM 1.9 MG/DL (1.6-2.4)
[2023-07-30 11:46] VITALS: BP 130/76
[2023-07-30 15:46] VITALS: BP 141/82
[2023-07-30] MEDS: AMOXICILLIN/Clavulanate 875 MG TABLET PO SCH (17:43)
[2023-07-30 19:28] VITALS: BP 132/83
[2023-07-30 23:08] VITALS: BP 116/76
[2023-07-31 04:04] VITALS: BP 133/78
[2023-07-31 04:17] LABS: CALCIUM 8.1 MG/DL (8.5-10.1); CREATININE SERUM 0.59 MG/DL (0.60-1.30); MAGNESIUM 1.9 MG/DL (1.6-2.4); PHOSPHORUS 2.6 MG/DL (2.3-4.7); POTASSIUM 3.2 MMOL/L (3.6-5.0)
[2023-07-31] MEDS: POTASSIUM BICARB 20 MEQ effervescent TABLET PO SCH (04:24)
[2023-07-31] MEDS: POTASSIUM CL 10MEQ/50ML IVPB 50 ML IV SCH (04:25)
[2023-07-31] MEDS: MAGNESIUM 1 GM/100 ML IVPB 100 ML IV SCH ×3 (04:26→05:46)
[2023-07-31] MEDS: POTASSIUM CHLORIDE 20 MEQ TABLET PO SCH (04:26)
[2023-07-31 07:40] VITALS: BP 136/84
--- NOTE | 2023-07-31 08:15 | Progress Note - Surgery ---
KELLY SWANN 07/31/23 0814: Subjective Date Seen by a Provider: Jul 31, 2023 Time Seen by a Provider: 07:00 Subjective/Events-last exam Patient had an uneventful night. States that she has been passing gas. Colostomy bag looks same as yesterday. Was able to tolerate soft food last night and reported no pain, nausea or vomiting after eating. Has been ambulating with no issue. Incisions are not inflammed or erythematous. Only pain on abdominal palpation is near incisions and peristomal. Denied fever, chills, chest pain, SOB, headache. Review of Systems General: No Chills, No Night Sweats HEENT: No Head Aches, No Visual Changes Pulmonary: No Dyspnea, No Cough Cardiovascular: No: Chest Pain, Edema Gastrointestinal: No: Nausea, Vomiting Genitourinary: No Dysuria, No Frequency Musculoskeletal: No: neck pain, arm pain Neurological: No: Numbness, Confusion Focused Exam Time of Focused Exam: 0430 Objective Exam Vital Signs Date Time Temp Pulse Resp B/P (MAP) Pulse Ox O2 Delivery O2 Flow Rate FiO2 07/31/23 07:40 36.8 81 16 136/84 (101) 98 Room Air 07/31/23 04:04 36.4 78 19 133/78 (96) 96 Room Air 0.00 0.00 07/30/23 23:08 36.5 86 19 116/76 (89) 96 Room Air 0.00 0.00 07/30/23 19:45 Room Air 07/30/23 19:28 36.7 80 19 132/83 (99) 95 Room Air 07/30/23 15:46 36.9 81 20 141/82 (101) 96 Room Air 07/30/23 11:46 37.0 80 16 130/76 (94) 96 Room Air 07/30/23 08:56 Room Air I & O 07/31/23 07:00 Intake Total 1910 ml Output Total 3510 ml Balance -1600 ml Capillary Refill : Less Than 3 Seconds General Appearance: No Apparent Distress, WD/WN, Obese (morbidly) HEENT: PERRL/EOMI, Normal ENT Inspection Neck: Normal Inspection, Non Tender, Supple Respiratory: Chest Non Tender, Normal Breath Sounds, No Accessory Muscle Use, No Respiratory Distress Cardiovascular: Regular Rate, Rhythm, No Edema, No JVD Peripheral Pulses: 2+ Dorsalis Pedis (R), 2+ Left Dors-Pedis (L), 2+ Radial Pulses (R), 2+ Radial Pulses (L) Gastrointestinal: soft, tenderness (incisional and peristomal pain) Extremity: Non Tender, Other (bruising on left forearm ) Neurologic/Psychiatric: Alert, Oriented x3, Normal Mood/Affect Skin: Normal Color, Warm/Dry Results Lab Laboratory Tests 07/30/23 10:45: Sodium Level 137, Potassium Level 3.1L, Chloride Level 102, Carbon Dioxide Level 22, Anion Gap 13, Blood Urea Nitrogen 4L, Creatinine 0.56L, Estimat Glomerular Filtration Rate 115, BUN/Creatinine Ratio 7, Glucose Level 104, Calcium Level 7.9L, Phosphorus Level 2.5, Magnesium Level 1.9 07/31/23 03:30: Sodium Level 136, Potassium Level 3.2L, Chloride Level 102, Carbon Dioxide Level 24, Anion Gap 10, Blood Urea Nitrogen 3L, Creatinine 0.59L, Estimat Glomerular Filtration Rate 114, BUN/Creatinine Ratio 5, Glucose Level 101, Calcium Level 8.1L, Phosphorus Level 2.6, Magnesium Level 1.9 Microbiology 07/25/23 MRSA Screen - Final, Complete MRSA not isolated 07/15/23 Blood Culture - Final, Complete Assessment/Plan Assessment/Plan Assessment/Plan Perforated diverticulitis, complicated S/p lap hand assisted Shoemaker Perforation hollow viscus Substance abuse: Tobacco pre-HTN CT Abd/Pelvis. demonstrated more free air and likely abscess, surgery 07/26 Ambulate Convert to oral ABX Pain meds and anti-emetics as needed. Clear liquid diet advance to soft GI prophylaxis DVT prophylaxis Colostomy appears same as yesterday. NORMA BURNHAM DO 07/31/23 1304: Subjective Subjective/Events-last exam Tolerating diet. Patient states passing gas out colosotmy, nursing states she's not. Ambulating some. Colostomy unchanged in appearance. No new complaints. Denies n/v fever sweats chills shortness of breath or chest pain. Objective Exam General Appearance: No Apparent Distress, Obese (morbidly) HEENT: PERRL/EOMI, Normal ENT Inspection Neck: Normal Inspection, Non Tender Respiratory: Chest Non Tender, No Accessory Muscle Use, No Respiratory Distress Cardiovascular: Regular Rate, Rhythm, No JVD Gastrointestinal: soft, tenderness (incisional and peristomal pain), other (colostomy outer portion dark with beneath it is red appears viable still) Extremity: Non Tender, No Calf Tenderness Neurologic/Psychiatric: Alert, Oriented x3, Normal Mood/Affect Skin: Normal Color, Warm/Dry Lymphatic: No Adenopathy Assessment/Plan Assessment/Plan Assessment/Plan Perforated diverticulitis, complicated S/p lap hand assisted Shoemaker Perforation hollow viscus Substance abuse: Tobacco pre-HTN Postop ileus Hypokalemia CT Abd/Pelvis. demonstrated more free air and likely abscess, surgery 07/26 Ambulate Convert to oral ABX Pain meds and anti-emetics as needed. diet soft GI prophylaxis DVT prophylaxis Colostomy appears same as yesterday. Await bowel function Electrolyte replacement protocol Supervisory-Addendum Brief Verification & Attestation Participated in pt care: history, MDM, physical Personally performed: exam, history, MDM, supervision of care Care discussed with: Medical Student Procedures: n/a Results interpretation: Verified all documentation Verification and Attestation of Medical Student E/M Service A medical student performed and documented this service in my presence. I reviewed and verified all information documented by the medical student and made modifications to such information, when appropriate. I personally performed the physical exam and medical decision making. Norma Burnham, Jul 31, 2023,13:04 KELLY SWANN Jul 31, 2023 08:14 NORMA BURNHAM DO Jul 31, 2023 13:04
[2023-07-31] MEDS: AMOXICILLIN/Clavulanate 875 MG TABLET PO SCH ×2 (08:24→17:49)
[2023-07-31] MEDS: PANTOPRAZOLE INJECTION 40 MG VIAL IV SCH (08:24)
[2023-07-31] MEDS: ENOXAPARIN 40 MG/0.4 ML SYRINGE SC SCH ×2 (08:24→20:13)
[2023-07-31] MEDS ORDERED: POTASSIUM CHLORIDE 20 MEQ TABLET PO ONE ×2 (09:00→13:00)
[2023-07-31 11:46] VITALS: BP 137/83
[2023-07-31] MEDS: LACTATED RINGERS 1,000 ML 1,000 ML IV SCH ×2 (13:25→15:13)
[2023-07-31 15:38] VITALS: BP 126/84
[2023-07-31 19:41] VITALS: BP 121/85
[2023-07-31] MEDS: HYDROcodone/ACETAMINOPHEN 5 MG/325 MG TABLET PO PRN (21:51)
[2023-07-31 23:29] VITALS: BP 121/77
[2023-08-01 04:08] VITALS: BP 117/74
[2023-08-01 04:37] LABS: CALCIUM 8.1 MG/DL (8.5-10.1); CREATININE SERUM 0.62 MG/DL (0.60-1.30); PHOSPHORUS 2.5 MG/DL (2.3-4.7); POTASSIUM 3.9 MMOL/L (3.6-5.0)
[2023-08-01] MEDS: LACTATED RINGERS 1,000 ML 1,000 ML IV SCH (05:15)
[2023-08-01] MEDS: POTASSIUM BICARB 20 MEQ effervescent TABLET PO SCH (05:28)
[2023-08-01] MEDS: MAGNESIUM 1 GM/100 ML IVPB 100 ML IV SCH (05:28)
[2023-08-01] MEDS: POTASSIUM CL 10MEQ/50ML IVPB 50 ML IV SCH (05:28)
[2023-08-01] MEDS: POTASSIUM CHLORIDE 20 MEQ TABLET PO SCH (05:29)
[2023-08-01 07:57] VITALS: BP 133/86
--- NOTE | 2023-08-01 08:27 | Progress Note - Surgery ---
Subjective Date Seen by a Provider: Aug 01, 2023 Time Seen by a Provider: 08:24 Subjective/Events-last exam Having a little gas and output from colostomy. Pain controlled. Tolerating diet. Colostomy appears to be improving. Denies any other complaints. Wanting to go home. Denies n/v fever sweats chills shortness of breath or chest pain. Focused Exam Time of Focused Exam: 0430 Objective Exam Vital Signs Date Time Temp Pulse Resp B/P (MAP) Pulse Ox O2 Delivery O2 Flow Rate FiO2 08/01/23 07:57 36.2 87 16 133/86 (102) 98 Room Air 08/01/23 04:08 36.4 89 18 117/74 (88) 97 Room Air 0.00 0.00 07/31/23 23:29 36.3 86 18 121/77 (92) 97 Room Air 0.00 0.00 07/31/23 20:13 Room Air 07/31/23 19:41 37.1 97 18 121/85 (97) 97 Room Air 07/31/23 15:38 36.9 96 19 126/84 (98) 97 Room Air 0.00 07/31/23 11:46 37.3 80 18 137/83 (101) 97 Room Air 07/31/23 09:26 98 Room Air 0.00 I & O 08/01/23 07:00 Intake Total 3080 ml Output Total 2190 ml Balance 890 ml Capillary Refill : Less Than 3 Seconds General Appearance: No Apparent Distress, Obese (morbidly) HEENT: PERRL/EOMI, Normal ENT Inspection Neck: Normal Inspection, Non Tender Respiratory: Chest Non Tender, No Accessory Muscle Use, No Respiratory Distress Cardiovascular: Regular Rate, Rhythm, No JVD Peripheral Pulses: 2+ Dorsalis Pedis (R), 2+ Left Dors-Pedis (L), 2+ Radial Pulses (R), 2+ Radial Pulses (L) Gastrointestinal: soft, tenderness (incisional and peristomal pain), other (colostomy outer portion less dark with beneath it is red appears viable still, very small amount of output) Extremity: Non Tender, No Calf Tenderness Neurologic/Psychiatric: Alert, Oriented x3, Normal Mood/Affect Skin: Normal Color, Warm/Dry Lymphatic: No Adenopathy Results Lab Laboratory Tests 08/01/23 04:06: Sodium Level 137, Potassium Level 3.9, Chloride Level 105, Carbon Dioxide Level 23, Anion Gap 9, Blood Urea Nitrogen 2L, Creatinine 0.62, Estimat Glomerular Filtration Rate 113, BUN/Creatinine Ratio 3, Glucose Level 129H, Calcium Level 8.1L, Phosphorus Level 2.5, Magnesium Level 2.0 Microbiology 07/25/23 MRSA Screen - Final, Complete MRSA not isolated 07/15/23 Blood Culture - Final, Complete Assessment/Plan Assessment/Plan Assessment/Plan Perforated diverticulitis, complicated S/p lap hand assisted Shoemaker Perforation hollow viscus Substance abuse: Tobacco pre-HTN Postop ileus Hypokalemia CT Abd/Pelvis. demonstrated more free air and likely abscess, surgery 07/26 Ambulate Convert to oral ABX Pain meds and anti-emetics as needed. diet soft GI prophylaxis DVT prophylaxis Colostomy appears same as yesterday. Electrolyte replacement protocol Feeling well, wanting to go home. Drain will come out when less than 30 ml in 24 hours. Work with nurses on colostomy care dc home likely with outpatient follow up. NORMA CID DO Aug 01, 2023 08:26
[2023-08-01] MEDS ORDERED: AMOX1TAB12 PO (08:28)
[2023-08-01] MEDS ORDERED: ACHD5005 PO (08:28)
[2023-08-01] MEDS ORDERED: DOCU-143 PO (08:28)
--- NOTE | 2023-08-01 08:31 | Discharge Inst-Simple/Standard ---
Discharge Inst-Standard Discharge Medications New, Converted or Re-Newed RX: Transmitted to Pharmacy Patient Instructions/Follow Up Plan of Care/Instructions/FU: 2 weeks [facility]acha When Drain is less than 30 mL in [address] Burnham's office to have drain removed. Activity as Tolerated: No Discharge Diet: Soft Diet Other Inst to Patient Follow up Appt: Make appointment for 2 week. Instructions: No lifting greater than 10 pounds. No strenuous activity. May shower in 24 hours, no tub bath or soaking. Use incentive spirometer at home as directed. No Smoking Skin/Wound Care: Keep incisions clean and dry. Colostomy care as you worked with the colostomy nurse/education. When Drain is less than 30 mL in [address] Burnhams office to have drain removed. Symptoms to Report: Appetite Changes, Extremity Discoloration, Numbness/Tingling, Swelling Increased, Bleeding Excessive, Eyesight Changes, Pain Increased, Urine Color Change, Constipation(Persistent), Fever over 101 degree F, Pain/Pressure in chest, Urinating Difficulty, Cough Up/Vomit Blood, Heart Beat Irreg/Pounding, Pain/Pressure in jaw, Vaginal Bleeding Increase, Cramps in feet or legs, Lightheadedness, Pain/Pressure in shoulder, Diarrhea(Persistent), Memory Changes Suddenly, Questions/Concerns, Weight gain consecutive days, Dizziness/Fainting, Nausea/Vomiting, Shortness of Breath, Weight gain over 2 pounds If questions or concerns contact your physician Or seek help at emergency department. NORMA BURNHAM DO Aug 01, 2023 08:31
[2023-08-01] MEDS ORDERED: POTASSIUM CHLORIDE 20 MEQ TABLET PO ONE (09:00)
[2023-08-01] MEDS: AMOXICILLIN/Clavulanate 875 MG TABLET PO SCH (09:35)
[2023-08-01] MEDS: PANTOPRAZOLE INJECTION 40 MG VIAL IV SCH (09:35)
[2023-08-01] MEDS: ENOXAPARIN 40 MG/0.4 ML SYRINGE SC SCH (09:35)
[2023-08-01 11:39] VITALS: BP 140/93
[2023-08-01 13:38] VITALS: BP 140/93
--- NOTE | 2023-08-02 11:49 | D/C HH Face to Face Order ---
D/C Face to Face Orders Instructions for Patient Via [facility], Patient Instructions/FollowUp: 2 weeks [facility] Physician to follow Patient: Chacha Discharge Diet for Home: Soft Diet Patient Data-Allergies,Ht & Wt Patient Allergies: Coded Allergies: No Known Drug Allergies (Unverified , 07/15/23) Home Health Need/Face to Face Date of Face to Face: Aug 01, 2023 Clinical Findings: Other-list in note (hollow viscus perforation, s/p Shoemaker.) I have seen Pt [id number]: Yes Discharged To: Home Diagnosis/Conditions: Hollow viscus perforation S/p Shoemaker Patient is Homebound due to: Muscle weakness Colostomy care. Homebound Status Due to the above stated illness, injury or surgical procedure (medical condition or diagnosis) and associated clinical findings, the patient is homebound because of his/her inability to leave home except with aid of a supportive device and/or person AND leaving the home requires a considerable and taxing effort or is medically contraindicated. Pt req the following assistanc: Aid of another person Home Health Nursing Orders Home Health Services Order: Nursing Services, Wound Care-Eval/Treat Home Health Infusion Therapy Line Start Date: Jul 27, 2023 Certify Stmt I certify that this patient is under my care and that I, a nurse practitioner or a physician; a visitor services assistant working with me, had a face to face encounter that - meets the physician face to face encounter requirements with this patient as dated. NORMA CID DO Aug 02, 2023 11:49
== END 2023-08-01 14:03 | disposition home health service (06) | DRG 330 ==
LOC: EDUNIT# 01:45 → ER 01:52 → ICU 06:07 → 4TH 07-19 15:23
PROVIDERS: ADMIT Surgery; ATTEND Surgery
PROC: 0D1N4Z4 Bypass Sigmoid Colon to Cutaneous, Percutaneous Endoscopic Approach (ICD-10-PCS; 2023-07-25)
PROC: 0DBN4ZZ Excision of Sigmoid Colon, Percutaneous Endoscopic Approach (ICD-10-PCS; principal; 2023-07-25 14:39)
DX: K57.20 Diverticulitis of large intestine with perforation and abscess without bleeding (principal); E87.1 Hypo-osmolality and hyponatremia; Z68.41 Body mass index [BMI] 40.0-44.9, adult; E87.20 Acidosis, unspecified; J98.11 Atelectasis; K91.89 Other postprocedural complications and disorders of digestive system; K56.7 Ileus, unspecified; D69.6 Thrombocytopenia, unspecified; E66.01 Morbid (severe) obesity due to excess calories; F17.210 Nicotine dependence, cigarettes, uncomplicated; E87.6 Hypokalemia; R00.0 Tachycardia, unspecified; R04.0 Epistaxis; K64.9 Unspecified hemorrhoids; I10 Essential (primary) hypertension
CPT/HCPCS: 36410; 36415; 74177; 76937; 80048; 80053; 83605; 83735; 84100; 84703; 85007; 85025; 85027; 85610; 85730; 86850; 86900; 86901; 87040; 87081; 88305; 88307; 93005; 93041; 96361; 96365; 96375